=== PATIENT | female | born 1960 | race Hispanic/Latino ===

== ENCOUNTER 2018-05-05 09:13 | Inpatient (IN) | payer BC ==
[~2018-05-05] VITALS: Ht 152.4 cm; Wt 76.1 kg
[2018-05-05] VITALS (15 sets, daily range): BP systolic 112–132; BP diastolic 44–61
[2018-05-05] MEDS ORDERED: ONDANSETRON HCL 4 MG/2 ML VIAL ONE (10:11)
[2018-05-05] MEDS ORDERED: SODIUM CHLORIDE 0.9% 1000ML 1,000 ML IV ONE ×2 (10:11→11:33)
[2018-05-05 10:35] LABS: BASOPHILS % (AUTO) 0.9 % (0.0-5.0); HEMATOCRIT 39.5 % (36-48); LYMPHOCYTES % (AUTO) 5.1 % (21.0-51.0); MEAN CORPUSCULAR HEMOGLOBIN 28.2 pg (27.0-33.0); MEAN CORPUSCULAR HGB CONC 31.5 g/dL (32.0-36.0); MEAN CORPUSCULAR VOLUME 89.4 fL (79-99); MONOCYTES % (AUTO) 0.9 % (3.0-13.0); NEUTROPHILS % (AUTO) 93.1 % (40.0-77.0); PLATELET COUNT (AUTO) 436 K/uL (130-400); RED BLOOD CELL COUNT(AUTO) 4.42 MIL/uL (4.00-5.50); RED CELL DISTRIBUTION WIDTH 14.1 % (11.0-15.5); WHITE BLOOD COUNT (AUTO) 17.8 K/uL (4.8-10.8)
[2018-05-05 10:45] LABS: CREATININE 1.7 mg/dL (0.5-1.5); POTASSIUM 5.9 mmol/L (3.5-5.1)
[2018-05-05] MEDS ORDERED: INSULIN HUMULIN R 100 UNIT/ML 3ML ONE (10:59)
[2018-05-05 11:18] LABS: ABG BASE EXCESS -15.9 mmol/L (-2.0-3.0); ABG HCO3 10.6 mmol/L (21.0-28.0); ABG OXYGEN SATURATION 94.8 % (95.0-99.0); ABG PCO2 28 mmHg (32-45)
[2018-05-05 11:49] LABS: BILIRUBIN,DIRECT 0.1 mg/dL (0.0-0.3); BILIRUBIN,TOTAL 0.5 mg/dL (0.2-1.0); TOTAL PROTEIN, SERUM 7.9 g/dL (6.0-8.3)
[2018-05-05 12:12] LABS: APPEARANCE,URINE Clear (CLEAR); BILIRUBIN,URINE Negative (NEGATIVE); COLOR,URINE Yellow (YELLOW); GLUCOSE, URINE (UA) >=1000 mg/dL (NEGATIVE); KETONES,URINE 40 mg/dL (NEGATIVE); LEUKOCYTE ESTERASE ,URINE Negative (NEGATIVE); NITRATE,URINE Negative (NEGATIVE); OCCULT BLOOD,URINE Negative (NEGATIVE); PROTEIN,URINE POS 2+ (NEGATIVE); UROBILINOGEN,URINE 0.2 mg/dL (0.2-1.0)
[2018-05-05 12:23] LABS: BACTERIA,URINE Rare /HPF (None Seen); RBC,URINE None Seen /HPF (0-1); SQUAMOUS EPITHELIAL CELL,UR Rare /HPF (0-2); WBC,URINE 0-1 /HPF (0-1)
[2018-05-05 12:25] LABS: YEAST,URINE BUDDING Rare /HPF (None Seen)
[2018-05-05] MEDS ORDERED: INSULIN REGULAR, HUMAN 3ML 100 UNIT in SODIUM CHLORIDE 0.9% 99 ML IV PRN ×2 (12:30)
[2018-05-05] MEDS ORDERED: SODIUM CHLORIDE 0.9% 1000ML 1,000 ML IV SCH ×2 (12:33→12:45)
[2018-05-05] MEDS: SODIUM CHLORIDE 0.9% 1000ML 1,000 ML IV SCH ×3 (12:33→20:33)
[2018-05-05] MEDS ORDERED: ZOLPIDEM TARTRATE 5 MG TAB PO PRN (12:45)
[2018-05-05] MEDS ORDERED: MORPHINE SULFATE 4 MG/1ML SYG IV PRN (12:45)
[2018-05-05] MEDS ORDERED: MAG HYDROX/AL HYDROX/SIMETH ES 30 ML SUSP UDCUP PO PRN (12:45)
[2018-05-05] MEDS ORDERED: ACETAMINOPHEN 325 MG TAB PO PRN (12:45)
[2018-05-05] MEDS ORDERED: POTASSIUM CHLORIDE 10MEQ/100ML 100 ML IV PRN (12:45)
[2018-05-05] MEDS ORDERED: MORPHINE SULFATE 2 MG/ML 1ML SYG IV PRN (12:45)
[2018-05-05] MEDS ORDERED: ONDANSETRON HCL 4 MG/2 ML VIAL IV PRN (12:45)
[2018-05-05] MEDS ORDERED: INSULIN HUMULIN R 100 UNIT/ML 3ML IV ONE (14:00)
[2018-05-05 14:40] LABS: MAGNESIUM 2.2 mg/dL (1.80-2.40); PHOSPHORUS 4.9 mg/dL (2.5-4.9)
[2018-05-05 14:43] LABS: CREATININE 1.7 mg/dL (0.5-1.5); POTASSIUM 4.9 mmol/L (3.5-5.1)
[2018-05-05] MEDS ORDERED: DULO30CA51 PO (16:46)
[2018-05-05] MEDS ORDERED: GLIM4TAB3 PO (16:46)
[2018-05-05] MEDS ORDERED: RAMI10CA69 PO (16:46)
[2018-05-05] MEDS ORDERED: FOLI1TAB85 PO (16:46)
[2018-05-05] MEDS: DEXTROSE 5 %-0.45 % NACL 1,000 ML IV PRN (21:23)
[2018-05-06] VITALS (14 sets, daily range): BP systolic 103–152; BP diastolic 43–78
[2018-05-06] MEDS: DEXTROSE 5 %-0.45 % NACL 1,000 ML IV PRN (01:35)
[2018-05-06] MEDS: SODIUM CHLORIDE 0.9% 1000ML 1,000 ML IV SCH ×2 (03:33→06:42)
[2018-05-06 06:20] LABS: HEMATOCRIT 32.1 % (36-48); MEAN CORPUSCULAR HEMOGLOBIN 27.6 pg (27.0-33.0); MEAN CORPUSCULAR HGB CONC 32.8 g/dL (32.0-36.0); MEAN CORPUSCULAR VOLUME 84.3 fL (79-99); PLATELET COUNT (AUTO) 355 K/uL (130-400); RED BLOOD CELL COUNT(AUTO) 3.81 MIL/uL (4.00-5.50); RED CELL DISTRIBUTION WIDTH 13.2 % (11.0-15.5); WHITE BLOOD COUNT (AUTO) 16.9 K/uL (4.8-10.8)
[2018-05-06 06:28] LABS: CREATININE 1.3 mg/dL (0.5-1.5); MAGNESIUM 1.6 mg/dL (1.80-2.40); PHOSPHORUS 2.6 mg/dL (2.5-4.9)
[2018-05-06] MEDS: INSULIN LISPRO 100 UNIT/ML 3ML SQ SCH ×7 (07:30→22:35)
[2018-05-06] MEDS: PANTOPRAZOLE SODIUM 40 MG TABLET.DR PO SCH (08:21)
[2018-05-06] MEDS: ENOXAPARIN SODIUM 40 MG/0.4 ML SYRINGE SQ SCH (08:23)
[2018-05-06] MEDS: DULOXETINE HCL 30 MG CAP PO SCH (08:26)
[2018-05-06] MEDS: LISINOPRIL 40 MG TABLET PO SCH ×2 (08:27→08:28)
[2018-05-06] MEDS: VITAMIN B COMPLEX 1 CAPSULE PO SCH (08:34)
[2018-05-06] MEDS ORDERED: MAGNESIUM 2GM PREMIX 50ML 50 ML IV ONE (08:48)
[2018-05-06] MEDS ORDERED: PANTOPRAZOLE 40 MG/VIAL IVP SCH (09:00)
[2018-05-06] MEDS ORDERED: DEXTROSE 5 %-0.45 % NACL 1,000 ML IV ONE (09:13)
[2018-05-06] MEDS: ATORVASTATIN CALCIUM 20 MG TABLET PO SCH (22:32)
[2018-05-06] MEDS: INSULIN GLARGINE 100 UNITS/ML 10 ML VIAL SQ SCH (22:34)
[2018-05-07 04:00] VITALS: BP 148/75
[2018-05-07 04:27] LABS: HEMATOCRIT 33.8 % (36-48); MEAN CORPUSCULAR HEMOGLOBIN 28.7 pg (27.0-33.0); MEAN CORPUSCULAR HGB CONC 33.9 g/dL (32.0-36.0); MEAN CORPUSCULAR VOLUME 84.7 fL (79-99); PLATELET COUNT (AUTO) 377 K/uL (130-400); RED BLOOD CELL COUNT(AUTO) 3.99 MIL/uL (4.00-5.50); RED CELL DISTRIBUTION WIDTH 13.3 % (11.0-15.5); WHITE BLOOD COUNT (AUTO) 10.8 K/uL (4.8-10.8)
[2018-05-07 04:39] LABS: PHOSPHORUS 3.1 mg/dL (2.5-4.9)
[2018-05-07] MEDS: PANTOPRAZOLE SODIUM 40 MG TABLET.DR PO SCH (06:36)
[2018-05-07] MEDS: INSULIN LISPRO 100 UNIT/ML 3ML SQ SCH ×6 (06:40→21:00)
[2018-05-07 07:30] VITALS: BP 131/67
[2018-05-07] MEDS: VITAMIN B COMPLEX 1 CAPSULE PO SCH (10:40)
[2018-05-07] MEDS: DULOXETINE HCL 30 MG CAP PO SCH (10:40)
[2018-05-07] MEDS: LISINOPRIL 40 MG TABLET PO SCH (10:41)
[2018-05-07] MEDS: ENOXAPARIN SODIUM 40 MG/0.4 ML SYRINGE SQ SCH (10:42)
[2018-05-07 11:00] VITALS: BP 160/80
[2018-05-07] MEDS ORDERED: INSLAN SQ (11:20)
[2018-05-07] MEDS ORDERED: INSU100V SQ (11:20)
[2018-05-07] MEDS ORDERED: ATOR20TA65 PO (11:20)
[2018-05-07 16:00] VITALS: BP 167/80
[2018-05-07 20:00] VITALS: BP 132/68
[2018-05-07] MEDS: INSULIN GLARGINE 100 UNITS/ML 10 ML VIAL SQ SCH (21:10)
[2018-05-07] MEDS: ATORVASTATIN CALCIUM 20 MG TABLET PO SCH (21:12)
[2018-05-08 00:09] VITALS: BP 153/78
[2018-05-08 04:06] VITALS: BP 138/78
[2018-05-08] MEDS: PANTOPRAZOLE SODIUM 40 MG TABLET.DR PO SCH (07:02)
[2018-05-08] MEDS: INSULIN LISPRO 100 UNIT/ML 3ML SQ SCH ×6 (07:07→17:22)
[2018-05-08 07:30] VITALS: BP 151/66
[2018-05-08] MEDS: VITAMIN B COMPLEX 1 CAPSULE PO SCH (08:59)
[2018-05-08] MEDS: DULOXETINE HCL 30 MG CAP PO SCH (08:59)
[2018-05-08] MEDS: LISINOPRIL 40 MG TABLET PO SCH (08:59)
[2018-05-08] MEDS: ENOXAPARIN SODIUM 40 MG/0.4 ML SYRINGE SQ SCH (09:00)
[2018-05-08 11:00] VITALS: BP 143/75
[2018-05-08 16:00] VITALS: BP 139/75
== END 2018-05-08 19:00 | disposition home or self-care (01) | DRG 682 ==
LOC: EDH 09:13 → EDHIP 12:33 → 2CH 15:34 → 3AH 05-06 09:24
PROVIDERS: ADMIT Internal Medicine; ATTEND Internal Medicine
DX: N17.9 Acute kidney failure, unspecified (principal); E11.10 Type 2 diabetes mellitus with ketoacidosis without coma; E87.5 Hyperkalemia; E86.1 Hypovolemia; N18.9 Chronic kidney disease, unspecified; I12.9 Hypertensive chronic kidney disease with stage 1 through stage 4 chronic kidney disease, or unspecified chronic kidney disease; E11.22 Type 2 diabetes mellitus with diabetic chronic kidney disease; E66.9 Obesity, unspecified; E78.2 Mixed hyperlipidemia; G47.00 Insomnia, unspecified; K59.00 Constipation, unspecified; Z79.4 Long term (current) use of insulin; Z68.32 Body mass index [BMI] 32.0-32.9, adult
CPT/HCPCS: 36415; 36600; 80048; 80076; 81001; 82803; 82948; 83735; 84100; 85025; 85027; 99291; C9113; J1650; J1815; J2405; J3475; J7030; J7042

== ENCOUNTER 2018-05-25 17:30 | Emergency (ER) | payer BC ==
[~2018-05-25 17:30] MED LIST: ATOR20TA65 PO; DULO30CA51 PO; FOLI1TAB85 PO; GLIM4TAB3 PO; INSLAN SQ; INSU100V SQ; RAMI10CA69 PO
[2018-05-25 17:57] LABS: APPEARANCE,URINE Turbid (CLEAR); BILIRUBIN,URINE Negative (NEGATIVE); COLOR,URINE Yellow (YELLOW); GLUCOSE, URINE (UA) >=1000 mg/dL (NEGATIVE); KETONES,URINE Negative (NEGATIVE); LEUKOCYTE ESTERASE ,URINE Moderate (NEGATIVE); NITRATE,URINE Negative (NEGATIVE); OCCULT BLOOD,URINE Large (NEGATIVE); PROTEIN,URINE 300 (NEGATIVE); UROBILINOGEN,URINE 0.2 mg/dL (0.2-1.0)
[2018-05-25] MEDS ORDERED: IBUPROFEN 600 MG TABLET ONE (18:11)
[2018-05-25 18:13] LABS: BACTERIA,URINE Rare /HPF (None Seen); WBC,URINE >100 /HPF (0-1)
[2018-05-25 18:14] LABS: SQUAMOUS EPITHELIAL CELL,UR None Seen /HPF (0-2)
[2018-05-25 18:20] LABS: BASOPHILS % (AUTO) 0.9 % (0.0-5.0); HEMATOCRIT 38.9 % (36-48); LYMPHOCYTES % (AUTO) 19.4 % (21.0-51.0); MEAN CORPUSCULAR HEMOGLOBIN 28.5 pg (27.0-33.0); MEAN CORPUSCULAR HGB CONC 33.5 g/dL (32.0-36.0); MEAN CORPUSCULAR VOLUME 85.1 fL (79-99); MONOCYTES % (AUTO) 6.5 % (3.0-13.0); NEUTROPHILS % (AUTO) 72.2 % (40.0-77.0); PLATELET COUNT (AUTO) 403 K/uL (130-400); RED BLOOD CELL COUNT(AUTO) 4.58 MIL/uL (4.00-5.50); RED CELL DISTRIBUTION WIDTH 13.2 % (11.0-15.5); WHITE BLOOD COUNT (AUTO) 11.2 K/uL (4.8-10.8)
[2018-05-25 18:31] LABS: CREATININE 1.4 mg/dL (0.5-1.5); POTASSIUM 4.5 mmol/L (3.5-5.1)
[2018-05-25 18:35] LABS: BILIRUBIN,TOTAL 0.2 mg/dL (0.2-1.0)
[2018-05-25] MEDS ORDERED: LIDOCAINE HCL-MPF 1% 2ML VIAL ONE (18:47)
[2018-05-25] MEDS ORDERED: CEFTRIAXONE SODIUM 1 GM ONE (18:48)
== END 2018-05-25 20:06 | disposition home or self-care (01) ==
LOC: EDH 17:30
DX: N39.0 Urinary tract infection, site not specified (principal); E11.9 Type 2 diabetes mellitus without complications; E78.5 Hyperlipidemia, unspecified; I10 Essential (primary) hypertension; Z79.4 Long term (current) use of insulin
CPT/HCPCS: 36415; 80053; 81001; 82948; 83690; 85025; 87077; 87088; 87186; 96372; 99284; J0696; J3490

== ENCOUNTER → 2020-06-28 | Outpatient (CLI) | payer OTHER ==
[~2020-06-28] MED LIST changes: -DULO30CA51 PO; +DULO30CA52 PO; -GLIM4TAB3 PO; +GLIM4TAB36 PO
== END | disposition home or self-care (01) ==
LOC: RAH 12:47
PROVIDERS: ATTEND Internal Medicine Cardiovascular Disease
DX: Z13.6 Encounter for screening for cardiovascular disorders (principal)
CPT/HCPCS: 75571

== ENCOUNTER 2022-01-05 19:17 | Inpatient (IN) | payer BC, OTHER ==
[~2022-01-05] VITALS: Ht 165.1 cm; Wt 65.2 kg
[2022-01-05 19:57] LABS: BASOPHILS % (AUTO) 0.8 % (0.0-5.0); EOSINOPHILS % (AUTO) 1.5 % (0.0-8.0); HEMATOCRIT 34.8 % (36-48); LYMPHOCYTES % (AUTO) 21.2 % (21.0-51.0); MEAN CORPUSCULAR HGB CONC 32.5 g/dL (32.0-36.0); MEAN CORPUSCULAR VOLUME 89.5 fL (79-99); MONOCYTES % (AUTO) 12.2 % (3.0-13.0); PLATELET COUNT (AUTO) 180 K/uL (130-400); RED BLOOD CELL COUNT(AUTO) 3.89 MIL/uL (4.00-5.50); RED CELL DISTRIBUTION WIDTH 15.8 % (11.0-15.5); WHITE BLOOD COUNT (AUTO) 6.6 K/uL (4.8-10.8)
[2022-01-05 20:06] LABS: CREATININE 1.6 mg/dL (0.5-1.5); POTASSIUM 3.1 mmol/L (3.5-5.1)
[2022-01-05 20:15] LABS: TOTAL PROTEIN, SERUM 7.5 g/dL (6.0-8.3)
[2022-01-05] MEDS ORDERED: POTASSIUM CHLORIDE 10% ELIXIR 20 MEQ/15 ML UDCUP PO ONE (20:30)
[2022-01-05] MEDS ORDERED: DEXAMETHASONE SOD PHOSPHATE 4 MG/ML 1ML VIAL IVP ONE (20:30)
[2022-01-05] MEDS ORDERED: 0.9%NACL 1000ML 1,000 ML IV ONE (20:30)
[2022-01-05] MEDS ORDERED: HYDRALAZINE 20MG/ML VIAL IV PRN (21:00)
[2022-01-05] MEDS ORDERED: BENZONATATE 100 MG CAPSULE PO PRN (21:00)
[2022-01-05] MEDS ORDERED: ERGOCALCIFEROL (VITAMIN D2) 50,000 UNIT CAPSULE PO ONE (21:00)
[2022-01-05] MEDS ORDERED: ACETAMINOPHEN WITH CODEINE 1 TAB TAB PO PRN ×2 (21:00)
[2022-01-05] MEDS: FAMOTIDINE 20MG VIAL IV SCH (21:14)
[2022-01-05] MEDS: ACETYLCYSTEINE 600 MG CAPSULE PO SCH (21:14)
[2022-01-05 21:15] LABS: ABG BASE EXCESS 2.6 mmol/L (-2.0-3.0); ABG HCO3 25.9 mmol/L (21.0-28.0); ABG OXYGEN SATURATION 96.5 % (95.0-99.0); ABG PCO2 36 mmHg (32-45)
[2022-01-05] MEDS ORDERED: GLUCAGON 1MG KIT 1 MG ML IM PRN (21:30)
[2022-01-05] MEDS ORDERED: ALBUTEROL INHALER 90MCG/INH IH PRN (21:30)
[2022-01-05] MEDS ORDERED: DEXTROSE 50%-WATER 50 ML DISP.SYRIN IV PRN (21:30)
[2022-01-06 01:36] LABS: APPEARANCE,URINE CLOUDY (CLEAR); BILIRUBIN,URINE MODERATE (NEGATIVE); COLOR,URINE AMBER (YELLOW); GLUCOSE, URINE (UA) NEGATIVE (NEGATIVE); KETONES,URINE 5 mg/dL (NEGATIVE); LEUKOCYTE ESTERASE ,URINE MODERATE (NEGATIVE); NITRATE,URINE NEGATIVE (NEGATIVE); OCCULT BLOOD,URINE SMALL (NEGATIVE); PROTEIN,URINE 100 mg/dL (NEGATIVE); UROBILINOGEN,URINE 0.2 mg/dL (0.2-1.0)
[2022-01-06] MEDS: AZITHROMYCIN 250 MG TABLET PO SCH (01:37)
[2022-01-06] MEDS: CEFTRIAXONE 1G VIAL IVP SCH (01:37)
[2022-01-06 01:55] LABS: WBC,URINE 26-50 /HPF (0-1)
[2022-01-06 01:56] LABS: BACTERIA,URINE Many /HPF (None Seen); HYALINE CASTS, URINE 0-1 /LPF (0-1 /LPF); SQUAMOUS EPITHELIAL CELL,UR Few /HPF (0-2)
[2022-01-06] MEDS: ASCORBIC ACID 500 MG TAB PO SCH (08:32)
[2022-01-06] MEDS: ENOXAPARIN SODIUM 40 MG/0.4 ML SYRINGE SQ SCH (08:32)
[2022-01-06] MEDS: DEXAMETHASONE SOD PHOSPHATE 4 MG/ML 1ML VIAL IVP SCH (08:32)
[2022-01-06] MEDS: ACETYLCYSTEINE 600 MG CAPSULE PO SCH ×2 (08:32→21:30)
[2022-01-06] MEDS: INSULIN HUMULIN R 100 UNIT/ML 3ML SQ SCH ×4 (08:32→20:58)
[2022-01-06] MEDS: ZINC SULFATE 220 CAPSULE PO SCH (08:32)
[2022-01-06 08:46] LABS: BASOPHILS % (AUTO) 0.8 % (0.0-5.0); HEMATOCRIT 36.6 % (36-48); LYMPHOCYTES % (AUTO) 22.5 % (21.0-51.0); MEAN CORPUSCULAR HEMOGLOBIN 29.4 pg (27.0-33.0); MONOCYTES % (AUTO) 4.1 % (3.0-13.0); NEUTROPHILS % (AUTO) 72.3 % (40.0-77.0); PLATELET COUNT (AUTO) 177 K/uL (130-400); RED BLOOD CELL COUNT(AUTO) 3.98 MIL/uL (4.00-5.50); RED CELL DISTRIBUTION WIDTH 15.8 % (11.0-15.5); WHITE BLOOD COUNT (AUTO) 3.7 K/uL (4.8-10.8)
[2022-01-06 08:55] LABS: INR 1.05 (0.85-1.15); PROTHROMBIN TIME 11.4 SEC (9.6-11.6)
[2022-01-06 08:57] LABS: PARTIAL THROMBOPLASTIN TIME 31.2 SEC (26.3-35.5)
[2022-01-06 09:22] LABS: BILIRUBIN,TOTAL 0.9 mg/dL (0.2-1.0); CREATININE 2.4 mg/dL (0.5-1.5); POTASSIUM 5.2 mmol/L (3.5-5.1); TOTAL PROTEIN, SERUM 7.6 g/dL (6.0-8.3)
[2022-01-06] MEDS ORDERED: NA ZIRCON CYCLOSIL(LOKELMA 10GM) PO SCH (09:30)
[2022-01-06 10:30] LABS: MAGNESIUM 2.1 mg/dL (1.80-2.40); PHOSPHORUS 5.8 mg/dL (2.5-4.9)
[2022-01-06 12:10] LABS: HEMOGLOBIN A1C 7.8 % (4.0-6.0)
[2022-01-06] MEDS: PHARMACY COMMUNICATION MISC SCH ×2 (12:30→20:30)
[2022-01-06] MEDS ORDERED: INSULIN GLARGINE 100 UNITS/ML 10 ML VIAL SQ ONE (13:30)
[2022-01-06] MEDS ORDERED: FURO40TA5 PO (17:31)
[2022-01-06] MEDS ORDERED: HYDR-4154 PO (17:31)
[2022-01-06] MEDS ORDERED: AMLO-258 PO (17:31)
[2022-01-06] MEDS ORDERED: CARV3.12 PO (17:31)
[2022-01-06] MEDS ORDERED: DICY20TA3 PO (17:31)
[2022-01-06] MEDS ORDERED: ESOM40CA54 PO (17:31)
[2022-01-06] MEDS ORDERED: ROPI0.5T7 PO (17:31)
[2022-01-06] MEDS ORDERED: ATOR40TA71 PO (17:31)
[2022-01-06] MEDS ORDERED: CHOL200059 PO (17:31)
[2022-01-06] MEDS ORDERED: HYDRALAZINE 25MG TABLET PO PRN (20:00)
[2022-01-06] MEDS: DICYCLOMINE HCL 20 MG TAB PO SCH (21:27)
[2022-01-06] MEDS: FAMOTIDINE 20MG VIAL IV SCH (21:27)
[2022-01-06] MEDS: ROPINIROLE HCL 0.25 MG TABLET PO SCH (21:28)
[2022-01-06] MEDS: CARVEDILOL 3.125 MG TABLET PO SCH (21:28)
[2022-01-06] MEDS: INSULIN GLARGINE 100 UNITS/ML 10 ML VIAL SQ SCH (21:28)
[2022-01-06] MEDS: ATORVASTATIN 40 MG TABLET PO SCH (21:28)
[2022-01-07] MEDS: AZITHROMYCIN 250 MG TABLET PO SCH (00:46)
[2022-01-07] MEDS: CEFTRIAXONE 1G VIAL IVP SCH (00:46)
[2022-01-07] MEDS ORDERED: PHARMACY COMMUNICATION MISC SCH (01:00)
[2022-01-07] MEDS ORDERED: RENAL DOSE IV PRN (01:00)
[2022-01-07] MEDS: PHARMACY COMMUNICATION MISC SCH ×3 (04:18→22:16)
[2022-01-07] MEDS: DULOXETINE HCL 30 MG CAP PO SCH (08:13)
[2022-01-07] MEDS: INSULIN HUMULIN R 100 UNIT/ML 3ML SQ SCH ×4 (08:17→21:57)
[2022-01-07] MEDS: (Cholecalciferol (Vitamin D3) (Vitamin D3) 50 MCG) PO SCH (08:17)
[2022-01-07] MEDS: DEXAMETHASONE SOD PHOSPHATE 4 MG/ML 1ML VIAL IVP SCH (08:19)
[2022-01-07] MEDS: DICYCLOMINE HCL 20 MG TAB PO SCH ×2 (08:19→21:48)
[2022-01-07] MEDS: ACETYLCYSTEINE 600 MG CAPSULE PO SCH ×2 (08:20→21:51)
[2022-01-07] MEDS: Vitamin B Complex/Vit C/Folic Acid PO SCH (08:20)
[2022-01-07] MEDS: CARVEDILOL 3.125 MG TABLET PO SCH ×2 (08:20→21:49)
[2022-01-07] MEDS: AMLODIPINE 5 MG TAB PO SCH (08:21)
[2022-01-07] MEDS: ENOXAPARIN SODIUM 40 MG/0.4 ML SYRINGE SQ SCH (08:22)
[2022-01-07] MEDS: ZINC SULFATE 220 CAPSULE PO SCH (08:22)
[2022-01-07] MEDS: INSULIN GLARGINE 100 UNITS/ML 10 ML VIAL SQ SCH ×3 (08:22→21:57)
[2022-01-07] MEDS: ASCORBIC ACID 500 MG TAB PO SCH (08:22)
[2022-01-07] MEDS: HEPARIN 5,000 UNIT VIAL SQ SCH ×3 (08:30→10:44)
[2022-01-07 08:33] LABS: BASOPHILS % (AUTO) 0.1 % (0.0-5.0); HEMATOCRIT 35.1 % (36-48); LYMPHOCYTES % (AUTO) 17.3 % (21.0-51.0); MEAN CORPUSCULAR HGB CONC 32.2 g/dL (32.0-36.0); MEAN CORPUSCULAR VOLUME 90.2 fL (79-99); MONOCYTES % (AUTO) 8.6 % (3.0-13.0); NEUTROPHILS % (AUTO) 73.7 % (40.0-77.0); PLATELET COUNT (AUTO) 190 K/uL (130-400); RED BLOOD CELL COUNT(AUTO) 3.89 MIL/uL (4.00-5.50); RED CELL DISTRIBUTION WIDTH 15.8 % (11.0-15.5); WHITE BLOOD COUNT (AUTO) 9.2 K/uL (4.8-10.8)
[2022-01-07 08:53] LABS: ALBUMIN 2.8 g/dL (3.5-5.0); BILIRUBIN,TOTAL 0.7 mg/dL (0.2-1.0); CREATININE 3.4 mg/dL (0.5-1.5); CRP QUANTITATIVE 13.5 mg/L (0.00-9.0); TOTAL PROTEIN, SERUM 7.2 g/dL (6.0-8.3)
[2022-01-07] MEDS ORDERED: PANTOPRAZOLE 40 MG TAB DR PO SCH (09:00)
[2022-01-07] MEDS ORDERED: BARICITINIB (EUA) 2 MG TABLET PO SCH (13:00)
[2022-01-07] MEDS ORDERED: INSULIN HUMULIN R 100 UNIT/ML 3ML SQ SCH (17:00)
[2022-01-07] MEDS: ROPINIROLE HCL 0.25 MG TABLET PO SCH (21:00)
[2022-01-07] MEDS: FAMOTIDINE 20MG VIAL IV SCH (21:48)
[2022-01-07] MEDS: ATORVASTATIN 40 MG TABLET PO SCH (21:49)
[2022-01-08] VITALS (27 sets, daily range): BP systolic 129–151; BP diastolic 59–100
[2022-01-08] MEDS: CEFTRIAXONE 1G VIAL IVP SCH
[2022-01-08] MEDS: AZITHROMYCIN 250 MG TABLET PO SCH
[2022-01-08] MEDS ORDERED: ERGOCALCIFEROL (VITAMIN D2) 50,000 UNIT CAPSULE ONE (00:23)
[2022-01-08] MEDS: PHARMACY COMMUNICATION MISC SCH ×3 (04:30→20:30)
[2022-01-08] MEDS: PANTOPRAZOLE 40 MG TAB DR PO SCH ×2 (07:30→08:24)
[2022-01-08] MEDS: INSULIN HUMULIN R 100 UNIT/ML 3ML SQ SCH ×7 (07:30→20:32)
[2022-01-08] MEDS: (Cholecalciferol (Vitamin D3) (Vitamin D3) 50 MCG) PO SCH (08:08)
[2022-01-08] MEDS: ZINC SULFATE 220 CAPSULE PO SCH (08:20)
[2022-01-08] MEDS: AMLODIPINE 5 MG TAB PO SCH (08:21)
[2022-01-08] MEDS: DICYCLOMINE HCL 20 MG TAB PO SCH ×2 (08:21→20:30)
[2022-01-08] MEDS: Vitamin B Complex/Vit C/Folic Acid PO SCH (08:21)
[2022-01-08] MEDS: ASCORBIC ACID 500 MG TAB PO SCH (08:21)
[2022-01-08] MEDS: DULOXETINE HCL 30 MG CAP PO SCH (08:21)
[2022-01-08] MEDS: DEXAMETHASONE SOD PHOSPHATE 4 MG/ML 1ML VIAL IVP SCH (08:21)
[2022-01-08] MEDS: ACETYLCYSTEINE 600 MG CAPSULE PO SCH ×2 (08:21→20:30)
[2022-01-08] MEDS: CARVEDILOL 3.125 MG TABLET PO SCH ×2 (08:22→20:31)
[2022-01-08 08:23] LABS: ALBUMIN 2.9 g/dL (3.5-5.0); BILIRUBIN,TOTAL 0.6 mg/dL (0.2-1.0); TOTAL PROTEIN, SERUM 7.3 g/dL (6.0-8.3)
[2022-01-08] MEDS: INSULIN GLARGINE 100 UNITS/ML 10 ML VIAL SQ SCH ×2 (08:23→20:32)
[2022-01-08 08:33] LABS: BASOPHILS % (AUTO) 0.1 % (0.0-5.0); HEMATOCRIT 34.6 % (36-48); LYMPHOCYTES % (AUTO) 19.1 % (21.0-51.0); MEAN CORPUSCULAR HEMOGLOBIN 28.8 pg (27.0-33.0); MEAN CORPUSCULAR HGB CONC 32.4 g/dL (32.0-36.0); MEAN CORPUSCULAR VOLUME 88.9 fL (79-99); MONOCYTES % (AUTO) 7.4 % (3.0-13.0); NEUTROPHILS % (AUTO) 72.9 % (40.0-77.0); PLATELET COUNT (AUTO) 211 K/uL (130-400); RED BLOOD CELL COUNT(AUTO) 3.89 MIL/uL (4.00-5.50); RED CELL DISTRIBUTION WIDTH 15.8 % (11.0-15.5); WHITE BLOOD COUNT (AUTO) 8.6 K/uL (4.8-10.8)
[2022-01-08 09:23] LABS: INR 1.07 (0.85-1.15); PROTHROMBIN TIME 11.6 SEC (9.6-11.6)
[2022-01-08 09:25] LABS: PARTIAL THROMBOPLASTIN TIME 30.6 SEC (26.3-35.5)
[2022-01-08 19:44] LABS: APPEARANCE BODY FLUID CLEAR (CLEAR); COLOR,BODY FLUID YELLOW (LT YELLOW); SPECIMENTYPE,BODY FLUID PLEURAL; TOTAL VOLUME,BODY FLUID 1500 mL
[2022-01-08 19:45] LABS: BODY FLUID RBC 268 /cu. mm.; BODY FLUID WBC 4 /cu. mm.
[2022-01-08] MEDS: ATORVASTATIN 40 MG TABLET PO SCH (20:30)
[2022-01-08] MEDS: ROPINIROLE HCL 0.25 MG TABLET PO SCH (20:30)
[2022-01-08] MEDS: FAMOTIDINE 20MG VIAL IV SCH (20:31)
[2022-01-08 21:02] LABS: HEPATITIS B SURFACE ANTIGEN Non-Reactive (Negative)
[2022-01-09] MEDS: AZITHROMYCIN 250 MG TABLET PO SCH (00:16)
[2022-01-09] MEDS: CEFTRIAXONE 1G VIAL IVP SCH (00:16)
[2022-01-09 04:00] VITALS: BP 134/52
[2022-01-09] MEDS: PHARMACY COMMUNICATION MISC SCH ×3 (04:30→20:30)
[2022-01-09 05:12] LABS: BASOPHILS % (AUTO) 0.1 % (0.0-5.0); HEMATOCRIT 33.3 % (36-48); LYMPHOCYTES % (AUTO) 14.8 % (21.0-51.0); MEAN CORPUSCULAR HEMOGLOBIN 29.3 pg (27.0-33.0); MEAN CORPUSCULAR VOLUME 88.8 fL (79-99); MONOCYTES % (AUTO) 8.5 % (3.0-13.0); NEUTROPHILS % (AUTO) 76.2 % (40.0-77.0); PLATELET COUNT (AUTO) 170 K/uL (130-400); RED BLOOD CELL COUNT(AUTO) 3.75 MIL/uL (4.00-5.50); RED CELL DISTRIBUTION WIDTH 15.6 % (11.0-15.5); WHITE BLOOD COUNT (AUTO) 9.5 K/uL (4.8-10.8)
[2022-01-09] MEDS: INSULIN HUMULIN R 100 UNIT/ML 3ML SQ SCH ×7 (05:16→20:34)
[2022-01-09 05:27] LABS: CARBON DIOXIDE 26 mmol/L (21-32); CHLORIDE 97 mmol/L (101-111); CREATININE 3.3 mg/dL (0.5-1.5); GLOMERULAR FILTR. RATE CALC 15 mL/min (>60); GLUCOSE,RANDOM 152 mg/dL (70-105); POTASSIUM 3.6 mmol/L (3.5-5.1); SODIUM SERUM 135 mmol/L (136-145); UREA NITROGEN, BLOOD 32 mg/dL (7-18)
[2022-01-09 05:31] LABS: CRP QUANTITATIVE < 2.00 mg/L (0.00-9.0)
[2022-01-09] MEDS: PANTOPRAZOLE 40 MG TAB DR PO SCH ×2 (06:10→09:14)
[2022-01-09 08:00] VITALS: BP 141/68
[2022-01-09] MEDS: (Cholecalciferol (Vitamin D3) (Vitamin D3) 50 MCG) PO SCH (09:00)
[2022-01-09] MEDS: ACETYLCYSTEINE 600 MG CAPSULE PO SCH ×2 (09:13→20:29)
[2022-01-09] MEDS: DULOXETINE HCL 30 MG CAP PO SCH (09:13)
[2022-01-09] MEDS: AMLODIPINE 5 MG TAB PO SCH (09:13)
[2022-01-09] MEDS: DICYCLOMINE HCL 20 MG TAB PO SCH ×2 (09:14→20:29)
[2022-01-09] MEDS: ZINC SULFATE 220 CAPSULE PO SCH (09:14)
[2022-01-09] MEDS: Vitamin B Complex/Vit C/Folic Acid PO SCH (09:14)
[2022-01-09] MEDS: CARVEDILOL 3.125 MG TABLET PO SCH ×2 (09:14→20:34)
[2022-01-09] MEDS: ASCORBIC ACID 500 MG TAB PO SCH (09:14)
[2022-01-09] MEDS: DEXAMETHASONE SOD PHOSPHATE 4 MG/ML 1ML VIAL IVP SCH (09:15)
[2022-01-09] MEDS: INSULIN GLARGINE 100 UNITS/ML 10 ML VIAL SQ SCH ×2 (09:16→20:28)
[2022-01-09 12:00] VITALS: BP 133/63
[2022-01-09 16:00] VITALS: BP 133/71
[2022-01-09 20:03] VITALS: BP 148/69
[2022-01-09] MEDS: ATORVASTATIN 40 MG TABLET PO SCH (20:29)
[2022-01-09] MEDS: FAMOTIDINE 20MG VIAL IV SCH (20:29)
[2022-01-09] MEDS: ROPINIROLE HCL 0.25 MG TABLET PO SCH (20:29)
[2022-01-09] MEDS: HEPARIN 5,000 UNIT VIAL SQ SCH (20:30)
[2022-01-09 23:53] VITALS: BP 140/65
[2022-01-10] VITALS (19 sets, daily range): BP systolic 123–174; BP diastolic 63–81
[2022-01-10] MEDS: CEFTRIAXONE 1G VIAL IVP SCH ×2 (00:26→23:03)
[2022-01-10 03:34] LABS: HEMATOCRIT 32.8 % (36-48); MEAN CORPUSCULAR HEMOGLOBIN 29.2 pg (27.0-33.0); MEAN CORPUSCULAR HGB CONC 32.9 g/dL (32.0-36.0); MEAN CORPUSCULAR VOLUME 88.6 fL (79-99); RED BLOOD CELL COUNT(AUTO) 3.7 MIL/uL (4.00-5.50); RED CELL DISTRIBUTION WIDTH 15.3 % (11.0-15.5); WHITE BLOOD COUNT (AUTO) 7.3 K/uL (4.8-10.8)
[2022-01-10 03:50] LABS: ALBUMIN 2.5 g/dL (3.5-5.0); BILIRUBIN,TOTAL 0.5 mg/dL (0.2-1.0); CREATININE 4.2 mg/dL (0.5-1.5); MAGNESIUM 2.3 mg/dL (1.80-2.40); PHOSPHORUS 4.7 mg/dL (2.5-4.9); POTASSIUM 4.1 mmol/L (3.5-5.1); TOTAL PROTEIN, SERUM 6.5 g/dL (6.0-8.3)
[2022-01-10] MEDS: PHARMACY COMMUNICATION MISC SCH ×4 (04:30→23:03)
[2022-01-10] MEDS: INSULIN HUMULIN R 100 UNIT/ML 3ML SQ SCH ×7 (06:19→21:00)
[2022-01-10] MEDS: DULOXETINE HCL 30 MG CAP PO SCH (08:55)
[2022-01-10] MEDS: DICYCLOMINE HCL 20 MG TAB PO SCH ×2 (08:55→20:50)
[2022-01-10] MEDS: ACETYLCYSTEINE 600 MG CAPSULE PO SCH ×2 (08:55→20:50)
[2022-01-10] MEDS: DEXAMETHASONE SOD PHOSPHATE 4 MG/ML 1ML VIAL IVP SCH (08:55)
[2022-01-10] MEDS: Vitamin B Complex/Vit C/Folic Acid PO SCH (08:55)
[2022-01-10] MEDS: ZINC SULFATE 220 CAPSULE PO SCH (08:55)
[2022-01-10] MEDS: AMLODIPINE 5 MG TAB PO SCH (08:55)
[2022-01-10] MEDS: ASCORBIC ACID 500 MG TAB PO SCH (08:56)
[2022-01-10] MEDS: CARVEDILOL 3.125 MG TABLET PO SCH ×2 (08:56→20:49)
[2022-01-10] MEDS: HEPARIN 5,000 UNIT VIAL SQ SCH ×2 (08:57→21:01)
[2022-01-10] MEDS: INSULIN GLARGINE 100 UNITS/ML 10 ML VIAL SQ SCH ×2 (08:59→21:00)
[2022-01-10] MEDS: (Cholecalciferol (Vitamin D3) (Vitamin D3) 50 MCG) PO SCH (09:00)
[2022-01-10] MEDS ORDERED: ALBUHFA IH (12:28)
[2022-01-10] MEDS ORDERED: ASCO500T20 PO (12:28)
[2022-01-10] MEDS ORDERED: BENZ-70 PO (12:28)
[2022-01-10] MEDS ORDERED: ZINC220C6 PO (12:35)
[2022-01-10] MEDS ORDERED: AEC81 PO (12:35)
[2022-01-10] MEDS ORDERED: DEXA6TAB7 PO (12:35)
[2022-01-10] MEDS ORDERED: CEFD300C3 PO (12:35)
[2022-01-10] MEDS: ATORVASTATIN 40 MG TABLET PO SCH (20:49)
[2022-01-10] MEDS: FAMOTIDINE 20MG VIAL IV SCH (20:50)
[2022-01-10] MEDS: ROPINIROLE HCL 0.25 MG TABLET PO SCH (20:50)
[2022-01-11 00:25] VITALS: BP 130/51
[2022-01-11 04:10] LABS: MEAN CORPUSCULAR HEMOGLOBIN 28.9 pg (27.0-33.0); MEAN CORPUSCULAR VOLUME 87.5 fL (79-99); RED BLOOD CELL COUNT(AUTO) 3.77 MIL/uL (4.00-5.50); RED CELL DISTRIBUTION WIDTH 14.9 % (11.0-15.5); WHITE BLOOD COUNT (AUTO) 8.9 K/uL (4.8-10.8)
[2022-01-11 04:23] VITALS: BP 129/53
[2022-01-11 04:32] LABS: CREATININE 3.4 mg/dL (0.5-1.5); POTASSIUM 3.2 mmol/L (3.5-5.1)
[2022-01-11] MEDS: PANTOPRAZOLE 40 MG TAB DR PO SCH (06:19)
[2022-01-11] MEDS: INSULIN HUMULIN R 100 UNIT/ML 3ML SQ SCH ×4 (06:29→11:28)
[2022-01-11 08:43] VITALS: BP 134/59
[2022-01-11 09:00] VITALS: BP 134/59
[2022-01-11] MEDS: AMLODIPINE 5 MG TAB PO SCH (09:00)
[2022-01-11] MEDS: ACETYLCYSTEINE 600 MG CAPSULE PO SCH (09:00)
[2022-01-11] MEDS: ZINC SULFATE 220 CAPSULE PO SCH (09:00)
[2022-01-11] MEDS: HEPARIN 5,000 UNIT VIAL SQ SCH (09:00)
[2022-01-11] MEDS: ASCORBIC ACID 500 MG TAB PO SCH (09:00)
[2022-01-11] MEDS: (Cholecalciferol (Vitamin D3) (Vitamin D3) 50 MCG) PO SCH (09:00)
[2022-01-11] MEDS: DEXAMETHASONE SOD PHOSPHATE 4 MG/ML 1ML VIAL IVP SCH (09:00)
[2022-01-11] MEDS: DULOXETINE HCL 30 MG CAP PO SCH (09:00)
[2022-01-11] MEDS: INSULIN GLARGINE 100 UNITS/ML 10 ML VIAL SQ SCH (09:00)
[2022-01-11] MEDS: CARVEDILOL 3.125 MG TABLET PO SCH (09:00)
[2022-01-11] MEDS: Vitamin B Complex/Vit C/Folic Acid PO SCH (09:00)
[2022-01-11] MEDS: DICYCLOMINE HCL 20 MG TAB PO SCH (09:00)
== END 2022-01-11 12:27 | disposition home or self-care (01) | DRG 177 ==
LOC: EDH 19:17 → OBSVTOIN 20:58 → INTOOBSV 20:58 → EDHIP 20:58 → 2AH 01-08 07:44
PROVIDERS: ADMIT Internal Medicine; ATTEND Internal Medicine
PROC: XW0DXM6 Introduction of Baricitinib into Mouth and Pharynx, External Approach, New Technology Group 6 (ICD-10-PCS; principal; 2022-01-07)
PROC: 0W993ZZ Drainage of Right Pleural Cavity, Percutaneous Approach (ICD-10-PCS; 2022-01-08)
PROC: 5A1D70Z Performance of Urinary Filtration, Intermittent, Less than 6 Hours Per Day (ICD-10-PCS; 2022-01-08)
PROC: 5A1D70Z Performance of Urinary Filtration, Intermittent, Less than 6 Hours Per Day (ICD-10-PCS; 2022-01-10)
DX: U07.1 COVID-19 (principal); J12.82 Pneumonia due to coronavirus disease 2019; J96.01 Acute respiratory failure with hypoxia; N18.6 End stage renal disease; N17.9 Acute kidney failure, unspecified; I12.0 Hypertensive chronic kidney disease with stage 5 chronic kidney disease or end stage renal disease; D68.59 Other primary thrombophilia; N39.0 Urinary tract infection, site not specified; J91.8 Pleural effusion in other conditions classified elsewhere; E11.65 Type 2 diabetes mellitus with hyperglycemia; E11.21 Type 2 diabetes mellitus with diabetic nephropathy; D64.9 Anemia, unspecified; E78.5 Hyperlipidemia, unspecified; E11.22 Type 2 diabetes mellitus with diabetic chronic kidney disease; E78.00 Pure hypercholesterolemia, unspecified; Z99.2 Dependence on renal dialysis; E87.6 Hypokalemia; Z83.3 Family history of diabetes mellitus; Z82.49 Family history of ischemic heart disease and other diseases of the circulatory system; Z90.49 Acquired absence of other specified parts of digestive tract; B96.20 Unspecified Escherichia coli [E. coli] as the cause of diseases classified elsewhere
CPT/HCPCS: 32555; 36415; 36600; 71045; 71250; 80048; 80053; 81001; 82306; 82550; 82728; 82803; 82945; 82948; 83036; 83615; 83735; 83986; 84100; 84145; 84157; 84484; 85025; 85027; 85378; 85610; 85651; 85730; 86140; 86706; 86850; 86900; 86901; 87071; 87077; 87088; 87116; 87186; 87205; 87206; 87340; 87449; 87635; 87804; 89051; 90935; 93005; 93306; 93356; 93970; 94760; C1729; G0378; J0696; J1100; J1644; J1650; J1815; J3490; J7030

== ENCOUNTER → 2022-03-13 | Outpatient (CLI) | payer BC ==
[~2022-03-13] MED LIST changes: +AEC81 PO; +ALBUHFA IH; +AMLO-258 PO; +ASCO500T20 PO; -ATOR20TA65 PO; +ATOR40TA71 PO; +BENZ-70 PO; +CARV3.12 PO; +CEFD300C3 PO; +CHOL200059 PO; +DEXA6TAB7 PO; +DICY20TA3 PO; +ESOM40CA54 PO; +FURO40TA5 PO; +HYDR-4154 PO; +LIDOCAINE HCL 1% 20 ML VIAL ONE; +ROPI0.5T7 PO; +ZINC220C6 PO
[2022-03-13 09:03] LABS: INR 1.12 (0.85-1.15); PROTHROMBIN TIME 12.1 SEC (9.6-11.6)
[2022-03-13 09:04] LABS: PARTIAL THROMBOPLASTIN TIME 28.1 SEC (26.3-35.5)
[2022-03-13 09:10] LABS: TOTAL PROTEIN, SERUM 7.7 g/dL (6.0-8.3)
[2022-03-13 18:42] LABS: SPECIMENTYPE,BODY FLUID PLEURAL
[2022-03-13 18:43] LABS: APPEARANCE BODY FLUID CLEAR (CLEAR); BODY FLUID WBC 84 /cu. mm.; COLOR,BODY FLUID YELLOW (LT YELLOW); TOTAL VOLUME,BODY FLUID 1500 mL
[2022-03-13 18:44] LABS: BODY FLUID RBC 143 /cu. mm.
[2022-03-13 19:58] LABS: BF EOSINOPHIL 1 %; BF LYMPHOCYTE 7 %; BF MONOCYTE 1 %; BF OTHER CELLS 4
== END | disposition home or self-care (01) ==
LOC: RAH 08:00
PROVIDERS: ATTEND Internal Medicine
DX: J90 Pleural effusion, not elsewhere classified (principal); N18.6 End stage renal disease; Z79.01 Long term (current) use of anticoagulants
CPT/HCPCS: 32555; 71045; 82945; 83615 ×2; 84157; 84155; 83986; 89051; 85610; 85730; 87071; 87205; 36415; C1729

== ENCOUNTER 2022-05-01 23:42 | Emergency (ER) | payer BC ==
[~2022-05-01] VITALS: Ht 152.4 cm; Wt 66.7 kg
[~2022-05-01 23:42] MED LIST changes: -LIDOCAINE HCL 1% 20 ML VIAL ONE
[2022-05-02 00:24] LABS: CREATININE 4.5 mg/dL (0.5-1.5)
[2022-05-02 00:29] LABS: ALBUMIN 3.4 g/dL (3.5-5.0); TOTAL PROTEIN, SERUM 7.7 g/dL (6.0-8.3)
[2022-05-02 00:33] LABS: EOSINOPHILS % (AUTO) 0.9 % (0.0-8.0); HEMATOCRIT 34.4 % (36-48); LYMPHOCYTES % (AUTO) 9.9 % (21.0-51.0); MEAN CORPUSCULAR HEMOGLOBIN 30.2 pg (27.0-33.0); MEAN CORPUSCULAR HGB CONC 32.3 g/dL (32.0-36.0); MEAN CORPUSCULAR VOLUME 93.7 fL (79-99); MONOCYTES % (AUTO) 10.2 % (3.0-13.0); NEUTROPHILS % (AUTO) 77.6 % (40.0-77.0); PLATELET COUNT (AUTO) 212 K/uL (130-400); RED BLOOD CELL COUNT(AUTO) 3.67 MIL/uL (4.00-5.50); RED CELL DISTRIBUTION WIDTH 16.4 % (11.0-15.5); WHITE BLOOD COUNT (AUTO) 11.2 K/uL (4.8-10.8)
[2022-05-02] MEDS ORDERED: LIDOCAINE HCL 2% VISCOUS 15 ML UDCUP ONE (01:34)
[2022-05-02] MEDS ORDERED: DICYCLOMINE HCL 10 MG/5 ML ML PO ONE (01:34)
[2022-05-02] MEDS ORDERED: MAG/ALUM/SIMETH 30 ML UDCUP ONE (01:34)
[2022-05-02] MEDS ORDERED: DICYCLOMINE HCL 10 MG/5 ML ML PO SCH (02:00)
[2022-05-02] MEDS ORDERED: LIDOCAINE HCL 2% VISCOUS 15 ML UDCUP PO ONE (02:00)
[2022-05-02] MEDS ORDERED: MAG/ALUM/SIMETH 30 ML UDCUP PO ONE (02:00)
[2022-05-02] MEDS ORDERED: MORPHINE 2 MG SYG ONE (05:03)
[2022-05-02 05:18] VITALS: BP 136/64
[2022-05-02] MEDS ORDERED: MORPHINE 2 MG SYG IVP ONE (05:30)
== END 2022-05-02 05:39 | disposition home or self-care (01) ==
LOC: EDH 23:42
DX: I13.2 Hypertensive heart and chronic kidney disease with heart failure and with stage 5 chronic kidney disease, or end stage renal disease (principal); E11.22 Type 2 diabetes mellitus with diabetic chronic kidney disease; I50.9 Heart failure, unspecified; E78.00 Pure hypercholesterolemia, unspecified; R50.9 Fever, unspecified; Z20.822 Contact with and (suspected) exposure to COVID-19; Z79.4 Long term (current) use of insulin; Z79.52 Long term (current) use of systemic steroids; Z79.82 Long term (current) use of aspirin; Z90.49 Acquired absence of other specified parts of digestive tract; Z99.2 Dependence on renal dialysis
CPT/HCPCS: 99284; 71045; 87635; 84484; 80053; 85025; 87804 ×2; 36415; 93005; 96374; C9803

== ENCOUNTER → 2022-10-23 | Outpatient (CLI) | payer OTHER | END | disposition home or self-care (01) | LOC: RAH 12:25 | PROVIDERS: ATTEND Internal Medicine Cardiovascular Disease | DX: Z13.6 Encounter for screening for cardiovascular disorders (principal); R93.1 Abnormal findings on diagnostic imaging of heart and coronary circulation; J90 Pleural effusion, not elsewhere classified; R91.8 Other nonspecific abnormal finding of lung field; R18.8 Other ascites | CPT/HCPCS: 75571 ==

== ENCOUNTER 2022-11-06 07:21 | Observation (INO) | payer BC, OTHER ==
[~2022-11-06] VITALS: Ht 152.4 cm; Wt 59.3 kg
[2022-11-06 07:52] LABS: BASOPHILS % (AUTO) 0.4 % (0.0-5.0); EOSINOPHILS % (AUTO) 1.8 % (0.0-8.0); HEMATOCRIT 41.1 % (36-48); MEAN CORPUSCULAR HEMOGLOBIN 30.4 pg (27.0-33.0); MEAN CORPUSCULAR HGB CONC 31.4 g/dL (32.0-36.0); MEAN CORPUSCULAR VOLUME 96.7 fL (79-99); MONOCYTES % (AUTO) 6.7 % (3.0-13.0); NEUTROPHILS % (AUTO) 85.6 % (40.0-77.0); PLATELET COUNT (AUTO) 148 K/uL (130-400); RED BLOOD CELL COUNT(AUTO) 4.25 MIL/uL (4.00-5.50); RED CELL DISTRIBUTION WIDTH 16.1 % (11.0-15.5); WHITE BLOOD COUNT (AUTO) 10.2 K/uL (4.8-10.8)
[2022-11-06] MEDS ORDERED: 0.9%NACL 1000ML 1,000 ML IV ONE (08:00)
[2022-11-06] MEDS ORDERED: ONDANSETRON 4MG INJ IVP ONE (08:00)
[2022-11-06 09:52] LABS: ALBUMIN 3.2 g/dL (3.5-5.0); CREATININE 4.8 mg/dL (0.5-1.5); POTASSIUM 4.9 mmol/L (3.5-5.1); TOTAL PROTEIN, SERUM 8.1 g/dL (6.0-8.3)
[2022-11-06] MEDS ORDERED: ACETAMINOPHEN 500 MG TABLET PO ONE (10:00)
[2022-11-06 10:18] LABS: ABG BASE EXCESS 0.3 mmol/L (-2.0-3.0); ABG HCO3 23.6 mmol/L (21.0-28.0); ABG PCO2 34 mmHg (32-45)
[2022-11-06] MEDS: HEPARIN 5,000 UNIT VIAL SQ SCH (12:54)
[2022-11-06] MEDS: ZOSYN 3.375GM +NS 50ML IVPB SCH (12:57)
[2022-11-06] MEDS ORDERED: KCL 20 MEQ ERTAB PO PRN (13:00)
[2022-11-06] MEDS ORDERED: HYDRALAZINE 20MG/ML VIAL IV PRN (13:00)
[2022-11-06] MEDS ORDERED: POTASSIUM CHLORIDE 10% ELIXIR 20 MEQ/15 ML UDCUP PO PRN (13:00)
[2022-11-06] MEDS ORDERED: MAGNESIUM 2GM PREMIX 50ML 50 ML IV PRN (13:00)
[2022-11-06] MEDS ORDERED: 0.9%NACL 50ML IV SCH (13:00)
[2022-11-06] MEDS ORDERED: POTASSIUM CHLORIDE 20MEQ/100ML 100 ML IV PRN (13:00)
[2022-11-06] MEDS: AZITHROMYCIN 500MG+NS 250ML IVPB SCH (13:20)
[2022-11-06 14:37] LABS: PARTIAL THROMBOPLASTIN TIME 28.5 SEC (26.3-35.5)
[2022-11-06 15:08] LABS: INR 1.13 (0.85-1.15); PROTHROMBIN TIME 12.2 SEC (9.6-11.6)
[2022-11-06] MEDS: INSULIN HUMULIN R 100 UNIT/ML 3ML SQ SCH ×2 (16:30→21:00)
[2022-11-06] MEDS: METRONIDAZOLE 500MG/100ML BAG 100 ML IVPB SCH ×2 (17:06→20:57)
[2022-11-06] MEDS ORDERED: IPRATROPIUM 0.5 MG/2.5 ML INH IH SCH (18:00)
[2022-11-06 18:35] VITALS: BP 143/65
[2022-11-06 19:00] VITALS: BP 130/64
[2022-11-06] MEDS: BUDESONIDE 0.5 MG/2 ML INH IH SCH (19:27)
[2022-11-06] MEDS: FAMOTIDINE 20MG TAB PO SCH (20:57)
[2022-11-06] MEDS ORDERED: MONTELUKAST SODIUM 10 MG TAB PO SCH (21:00)
[2022-11-06] MEDS ORDERED: ACETAMINOPHEN 325 MG TAB PO PRN (22:00)
[2022-11-06] MEDS: IPRATROPIUM 0.5 MG/2.5 ML INH IH SCH (23:26)
[2022-11-07] VITALS (21 sets, daily range): BP systolic 112–171; BP diastolic 53–74
[2022-11-07] MEDS: ZOSYN 3.375GM +NS 50ML IVPB SCH (00:53)
[2022-11-07] MEDS: HEPARIN 5,000 UNIT VIAL SQ SCH ×2 (00:57→13:55)
[2022-11-07 04:09] LABS: INR 1.25 (0.85-1.15); PROTHROMBIN TIME 13.5 SEC (9.6-11.6)
[2022-11-07 04:10] LABS: PARTIAL THROMBOPLASTIN TIME 33.5 SEC (26.3-35.5)
[2022-11-07] MEDS: METRONIDAZOLE 500MG/100ML BAG 100 ML IVPB SCH (05:07)
[2022-11-07] MEDS: INSULIN HUMULIN R 100 UNIT/ML 3ML SQ SCH ×3 (06:32→16:03)
[2022-11-07] MEDS: IPRATROPIUM 0.5 MG/2.5 ML INH IH SCH ×2 (06:57→11:12)
[2022-11-07] MEDS: BUDESONIDE 0.5 MG/2 ML INH IH SCH (06:57)
[2022-11-07] MEDS: FAMOTIDINE 20MG TAB PO SCH (08:11)
[2022-11-07] MEDS ORDERED: DOXY100T2 PO (12:46)
[2022-11-07] MEDS: AZITHROMYCIN 500MG+NS 250ML IVPB SCH (13:50)
== END 2022-11-07 16:31 | disposition home or self-care (01) ==
LOC: EDH 07:21 → EDHIP 11:30 → INTOOBSV 11:30 → 2DH 17:07 → EDHIP 17:30 → 2DH 18:14
PROVIDERS: ADMIT Hospitalist; ATTEND Hospitalist
DX: J96.01 Acute respiratory failure with hypoxia (principal); K52.9 Noninfective gastroenteritis and colitis, unspecified; J90 Pleural effusion, not elsewhere classified; I13.2 Hypertensive heart and chronic kidney disease with heart failure and with stage 5 chronic kidney disease, or end stage renal disease; E11.22 Type 2 diabetes mellitus with diabetic chronic kidney disease; I50.33 Acute on chronic diastolic (congestive) heart failure; N18.6 End stage renal disease; D63.1 Anemia in chronic kidney disease; E78.5 Hyperlipidemia, unspecified; J44.9 Chronic obstructive pulmonary disease, unspecified; F32.A Depression, unspecified; R74.01 Elevation of levels of liver transaminase levels; Z86.16 Personal history of COVID-19; Z99.2 Dependence on renal dialysis; Z99.81 Dependence on supplemental oxygen; Z79.899 Other long term (current) drug therapy
CPT/HCPCS: 96372 ×2; 96361; 96365; 96366 ×2; 96375; 96367; 96368; 99285; 84484; 80053; 82803; 85025; 85610 ×2; 85730 ×2; 82948 ×5; 36415 ×2; 71045; 71250; 76604; 93005; 36600; 94640 ×4; 94664; J7030; J2405; J2543 ×3; J0456 ×2; J1644 ×4; J3490 ×3; J1815 ×2; G0378 ×3; 90935

== ENCOUNTER 2023-02-23 14:18 | Inpatient (IN) | payer BC, MEDICARE ==
[~2023-02-23] VITALS: Ht 152.4 cm; Wt 58.7 kg
[~2023-02-23 14:18] MED LIST changes: -AEC81 PO; -ALBUHFA IH; -AMLO-258 PO; -ASCO500T20 PO; -ATOR40TA71 PO; -BENZ-70 PO; -CARV3.12 PO; -CEFD300C3 PO; -CHOL200059 PO; -DEXA6TAB7 PO; -DICY20TA3 PO; +DOXY100T2 PO; -DULO30CA52 PO; -ESOM40CA54 PO; -FOLI1TAB85 PO; -FURO40TA5 PO; -GLIM4TAB36 PO; -HYDR-4154 PO; -INSLAN SQ; -INSU100V SQ; -RAMI10CA69 PO; -ROPI0.5T7 PO; -ZINC220C6 PO
[2023-02-23 14:46] LABS: MEAN CORPUSCULAR HEMOGLOBIN 30.7 pg (27.0-33.0); MEAN CORPUSCULAR HGB CONC 32.3 g/dL (32.0-36.0); MEAN CORPUSCULAR VOLUME 95.2 fL (79-99); PLATELET COUNT (AUTO) 160 K/uL (130-400); RED CELL DISTRIBUTION WIDTH 15.7 % (11.0-15.5)
[2023-02-23 15:04] LABS: ALBUMIN 3.4 g/dL (3.5-5.0); BILIRUBIN,TOTAL 1.5 mg/dL (0.2-1.0); CREATININE 5.6 mg/dL (0.5-1.5); POTASSIUM 4.8 mmol/L (3.5-5.1); TOTAL PROTEIN, SERUM 7.6 g/dL (6.0-8.3)
[2023-02-23 15:09] LABS: B-TYPE NATRIURETIC PEPTIDE > 5000 pg/mL (0-100)
[2023-02-23 15:50] LABS: SARS-CoV-2, RNA, NAAT NEGATIVE SARS CoV-2 (NEGATIVE)
[2023-02-23 15:56] LABS: RAPID GROUP A STREP negative (NEGATIVE)
[2023-02-23 16:06] LABS: INFLUENZA TYPE A Negative For Type A (NEGATIVE); INFLUENZA TYPE B Negative For Type B (NEGATIVE)
[2023-02-23] MEDS ORDERED: LACTULOSE 20 GM/30 ML UDCUP PO PRN (18:00)
[2023-02-23] MEDS ORDERED: HYDRALAZINE 20MG/ML VIAL IV PRN (18:00)
[2023-02-23] MEDS ORDERED: LABETALOL 20MG SYG IV PRN (18:00)
[2023-02-23] MEDS ORDERED: ONDANSETRON 4MG INJ IVP PRN (18:00)
[2023-02-23] MEDS ORDERED: IPRATROPIUM/ALBUTEROL SULFATE 3 ML SOLUTION IH PRN (18:00)
[2023-02-23] MEDS ORDERED: DOCUSATE SODIUM 100 MG CAP PO PRN (18:00)
[2023-02-23] MEDS ORDERED: ACETAMINOPHEN 325 MG TAB PO PRN (18:00)
[2023-02-23] MEDS ORDERED: TEMAZEPAM 15 MG CAPSULE PO PRN (18:00)
[2023-02-23] MEDS ORDERED: CLONIDINE HCL 0.1 MG TABLET PO PRN (18:00)
[2023-02-23] MEDS ORDERED: ACETAMINOPHEN 650 MG SUPPOSITORY RC PRN (18:00)
[2023-02-23] MEDS: HEPARIN 5,000 UNIT VIAL SQ SCH (18:14)
[2023-02-23 20:02] LABS: ABG BASE EXCESS -2.6 mmol/L (-2.0-3.0); ABG HCO3 21.1 mmol/L (21.0-28.0); ABG OXYGEN SATURATION 98.1 % (95.0-99.0); ABG PCO2 33 mmHg (32-45); ABG PH 7.423 (7.35-7.450); CARBON MONOXIDE 1.2; HHb 1.9; PO2, ARTERIAL BG 116.3 mmHg (83.0-108.0)
[2023-02-23 20:28] VITALS: PULSE 56; RESP 18; O2SAT 99
[2023-02-23] MEDS: FUROSEMIDE 40MG VIAL IV SCH (20:51)
[2023-02-23] MEDS: FAMOTIDINE 20MG VIAL IV SCH (20:51)
[2023-02-23] MEDS: MIDODRINE HCL 5 MG TABLET PO SCH (20:51)
[2023-02-23] MEDS: INSULIN HUMULIN R 100 UNIT/ML 3ML SQ SCH (20:52)
[2023-02-23 21:50] VITALS: BP 112/49; PULSE 55; RESP 20; O2SAT 95
[2023-02-24] VITALS (20 sets, daily range): BP systolic 102–159; BP diastolic 49–68; PULSE 52–61; RESP 16–20; TEMP 97.6–98; O2SAT 97–100
[2023-02-24] MEDS ORDERED: CARVEDILOL 3.125 MG TABLET PO ONE (03:30)
[2023-02-24] MEDS ORDERED: TRAZODONE HCL 50 MG TAB PO PRN (03:30)
[2023-02-24] MEDS ORDERED: ATOR10 PO (03:49)
[2023-02-24] MEDS ORDERED: ATOR40TA69 PO (03:53)
[2023-02-24] MEDS ORDERED: TRAZ-185 PO (03:53)
[2023-02-24] MEDS ORDERED: FOLI0.8T22 PO (03:53)
[2023-02-24] MEDS ORDERED: CARV3.12 PO (03:53)
[2023-02-24] MEDS ORDERED: CHLO25TA3 PO (03:53)
[2023-02-24] MEDS ORDERED: HYDR-4154 PO (03:53)
[2023-02-24 04:01] LABS: BASOPHILS # (AUTO) 0.11 K/uL (0.00-0.20); BASOPHILS % (AUTO) 1.4 % (0.0-5.0); EOSINOPHILS % (AUTO) 1.3 % (0.0-8.0); HEMATOCRIT 36.1 % (36-48); IMMATURE GRANULOCYTE ABSOLUTE 0.01 K/uL (0-1); LYMPHOCYTES % (AUTO) 25.8 % (21.0-51.0); MEAN CORPUSCULAR HEMOGLOBIN 30.4 pg (27.0-33.0); MEAN CORPUSCULAR HGB CONC 32.4 g/dL (32.0-36.0); MEAN CORPUSCULAR VOLUME 93.8 fL (79-99); MONOCYTES # (AUTO) 1.1 K/uL (0.1-1.0); MONOCYTES % (AUTO) 14.7 % (3.0-13.0); NEUTROPHILS # (AUTO) 4.3 K/uL (1.8-7.7); NEUTROPHILS % (AUTO) 56.7 % (40.0-77.0); PLATELET COUNT (AUTO) 172 K/uL (130-400); RED BLOOD CELL COUNT(AUTO) 3.85 MIL/uL (4.00-5.50); RED CELL DISTRIBUTION WIDTH 15.7 % (11.0-15.5); WHITE BLOOD COUNT (AUTO) 7.6 K/uL (4.8-10.8)
[2023-02-24 04:27] LABS: CREATININE 6.6 mg/dL (0.5-1.5); MAGNESIUM 2.5 mg/dL (1.80-2.40); PHOSPHORUS 5.9 mg/dL (2.5-4.9); POTASSIUM 4.8 mmol/L (3.5-5.1)
[2023-02-24] MEDS: HEPARIN 5,000 UNIT VIAL SQ SCH ×2 (05:52→17:49)
[2023-02-24] MEDS: INSULIN HUMULIN R 100 UNIT/ML 3ML SQ SCH ×4 (05:53→21:00)
[2023-02-24] MEDS ORDERED: INSULIN LISPRO 100 UNIT/ML 3ML SQ SCH (07:30)
[2023-02-24] MEDS ORDERED: DULOXETINE HCL 30 MG CAP PO SCH (09:00)
[2023-02-24] MEDS ORDERED: Vitamin B Complex/Vit C/Folic Acid PO SCH (09:00)
[2023-02-24] MEDS ORDERED: DICYCLOMINE HCL 20 MG TAB PO SCH (09:00)
[2023-02-24] MEDS ORDERED: HYDRALAZINE 25MG TABLET PO SCH (09:00)
[2023-02-24] MEDS: FUROSEMIDE 40MG VIAL IV SCH ×2 (09:21→21:07)
[2023-02-24] MEDS: MIDODRINE HCL 5 MG TABLET PO SCH ×3 (09:21→21:00)
[2023-02-24] MEDS ORDERED: ATORVASTATIN 40 MG TABLET PO SCH (21:00)
[2023-02-24] MEDS ORDERED: TRAZODONE HCL 50 MG TAB PO SCH (21:00)
[2023-02-24] MEDS ORDERED: SERTRALINE HCL 50 MG TABLET PO SCH (21:00)
[2023-02-24] MEDS: FAMOTIDINE 20MG VIAL IV SCH (21:07)
[2023-02-25] VITALS (15 sets, daily range): BP systolic 120–143; BP diastolic 55–67; PULSE 55–69; RESP 18–20; TEMP 97.7–97.9
[2023-02-25] MEDS: INSULIN HUMULIN R 100 UNIT/ML 3ML SQ SCH ×3 (07:30→16:30)
[2023-02-25] MEDS ORDERED: ATORVASTATIN 40 MG TABLET PO SCH (09:00)
[2023-02-25] MEDS: MIDODRINE HCL 5 MG TABLET PO SCH ×2 (09:00→12:00)
[2023-02-25] MEDS ORDERED: NON-FORMULARY MEDICATION 1 EACH (Folic Acid/Vitamin B Comp W-C (Rena-Vite Tablet) 0.8 MG) PO SCH (09:00)
[2023-02-25] MEDS ORDERED: Vitamin B Complex/Vit C/Folic Acid PO SCH (09:00)
[2023-02-25 10:27] LABS: ALBUMIN 2.9 g/dL (3.5-5.0); BILIRUBIN,TOTAL 1.1 mg/dL (0.2-1.0); CREATININE 5.7 mg/dL (0.5-1.5); MAGNESIUM 2.4 mg/dL (1.80-2.40); PHOSPHORUS 5.2 mg/dL (2.5-4.9); POTASSIUM 4.8 mmol/L (3.5-5.1); TOTAL PROTEIN, SERUM 7.3 g/dL (6.0-8.3)
[2023-02-25 14:39] LABS: BASOPHILS % (AUTO) 1.4 % (0.0-5.0); EOSINOPHILS # (AUTO) 0.09 K/uL (0.00-0.70); EOSINOPHILS % (AUTO) 1.3 % (0.0-8.0); IMMATURE GRANULOCYTE ABSOLUTE 0.02 K/uL (0-1); LYMPHOCYTES # (AUTO) 1.6 K/uL (1.0-4.8); LYMPHOCYTES % (AUTO) 23.4 % (21.0-51.0); MEAN CORPUSCULAR HEMOGLOBIN 30.9 pg (27.0-33.0); MEAN CORPUSCULAR HGB CONC 32.4 g/dL (32.0-36.0); MEAN CORPUSCULAR VOLUME 95.4 fL (79-99); MONOCYTES # (AUTO) 0.8 K/uL (0.1-1.0); MONOCYTES % (AUTO) 11.7 % (3.0-13.0); NEUTROPHILS # (AUTO) 4.3 K/uL (1.8-7.7); NEUTROPHILS % (AUTO) 61.9 % (40.0-77.0); PLATELET COUNT (AUTO) 159 K/uL (130-400); RED BLOOD CELL COUNT(AUTO) 3.88 MIL/uL (4.00-5.50); RED CELL DISTRIBUTION WIDTH 15.8 % (11.0-15.5)
== END 2023-02-25 18:45 | disposition home or self-care (01) | DRG 291 ==
LOC: EDH 14:18 → EDHIP 17:20 → OBSVTOIN 17:28 → EDHIP 17:28 → INTOOBSV 17:28 → UNDOADMOB 17:28 → 2DH 21:47 → EDHIP 21:47
PROVIDERS: ADMIT Internal Medicine Pulmonary Disease; ATTEND Internal Medicine Pulmonary Disease
PROC: 5A1D70Z Performance of Urinary Filtration, Intermittent, Less than 6 Hours Per Day (ICD-10-PCS; principal; 2023-02-24)
PROC: 5A1D70Z Performance of Urinary Filtration, Intermittent, Less than 6 Hours Per Day (ICD-10-PCS; 2023-02-25)
DX: I13.2 Hypertensive heart and chronic kidney disease with heart failure and with stage 5 chronic kidney disease, or end stage renal disease (principal); I50.31 Acute diastolic (congestive) heart failure; J96.01 Acute respiratory failure with hypoxia; N18.6 End stage renal disease; E87.1 Hypo-osmolality and hyponatremia; D64.9 Anemia, unspecified; E78.5 Hyperlipidemia, unspecified; F41.9 Anxiety disorder, unspecified; Z20.822 Contact with and (suspected) exposure to COVID-19; E11.22 Type 2 diabetes mellitus with diabetic chronic kidney disease; F32.A Depression, unspecified; E11.65 Type 2 diabetes mellitus with hyperglycemia; J44.9 Chronic obstructive pulmonary disease, unspecified; K52.9 Noninfective gastroenteritis and colitis, unspecified; Z79.4 Long term (current) use of insulin; Z86.16 Personal history of COVID-19; Z91.199 Patient's noncompliance with other medical treatment and regimen due to unspecified reason; Z99.2 Dependence on renal dialysis; Z99.81 Dependence on supplemental oxygen
CPT/HCPCS: 36415; 36600; 71045; 78582; 80048; 80053; 82435; 82803; 82947; 82948; 83605; 83735; 83880; 84100; 84132; 84295; 84484; 85018; 85025; 85027; 85378; 87635; 87804; 87880; 90935; 93005; 93306; 93970; 94664; A9540; A9558; C9803; G0378; J1644; J1815; J1940; J3490

== ENCOUNTER → 2023-03-15 | Outpatient (CLI) | payer BC, MEDICARE ==
[~2023-03-15] MED LIST changes: +ATOR40TA69 PO; -DOXY100T2 PO; +FOLI0.8T22 PO; +TRAZ-185 PO
== END | disposition home or self-care (01) ==
LOC: RAH 13:51
PROVIDERS: ATTEND Family Medicine
DX: J90 Pleural effusion, not elsewhere classified (principal); Z86.16 Personal history of COVID-19
CPT/HCPCS: 71046

== ENCOUNTER 2023-04-01 19:16 | Emergency (ER) | payer OTHER, MEDICARE ==
[~2023-04-01] VITALS: Ht 152.4 cm; Wt 63.5 kg
[2023-04-01 20:26] LABS: BASOPHILS # (AUTO) 0.09 K/uL (0.00-0.20); BASOPHILS % (AUTO) 1.2 % (0.0-5.0); EOSINOPHILS # (AUTO) 0.03 K/uL (0.00-0.70); EOSINOPHILS % (AUTO) 0.4 % (0.0-8.0); HEMATOCRIT 35.9 % (36-48); IMMATURE GRANULOCYTE ABSOLUTE 0.03 K/uL (0-1); LYMPHOCYTES # (AUTO) 0.8 K/uL (1.0-4.8); LYMPHOCYTES % (AUTO) 11.1 % (21.0-51.0); MEAN CORPUSCULAR HGB CONC 31.5 g/dL (32.0-36.0); MEAN CORPUSCULAR VOLUME 98.4 fL (79-99); MONOCYTES # (AUTO) 0.6 K/uL (0.1-1.0); MONOCYTES % (AUTO) 7.9 % (3.0-13.0); NEUTROPHILS # (AUTO) 5.8 K/uL (1.8-7.7); PLATELET COUNT (AUTO) 183 K/uL (130-400); RED BLOOD CELL COUNT(AUTO) 3.65 MIL/uL (4.00-5.50); RED CELL DISTRIBUTION WIDTH 14.6 % (11.0-15.5); WHITE BLOOD COUNT (AUTO) 7.3 K/uL (4.8-10.8)
[2023-04-01] MEDS ORDERED: FAMOTIDINE 20MG VIAL IV ONE (20:30)
[2023-04-01 20:43] LABS: ALBUMIN 2.9 g/dL (3.5-5.0); BILIRUBIN,TOTAL 1.2 mg/dL (0.2-1.0); CREATININE 3.6 mg/dL (0.5-1.5); POTASSIUM 4.2 mmol/L (3.5-5.1); TOTAL PROTEIN, SERUM 7.9 g/dL (6.0-8.3)
[2023-04-01 21:00] LABS: ABG BASE EXCESS 0.3 mmol/L (-2.0-3.0); ABG HCO3 23.8 mmol/L (21.0-28.0); ABG OXYGEN SATURATION 97.8 % (95.0-99.0); ABG PCO2 35 mmHg (32-45); ABG PH 7.456 (7.35-7.450); CARBON MONOXIDE 0.9; DEVICE COMMENT RIGHT RADIAL; HHb 2.2; PO2, ARTERIAL BG 109.6 mmHg (83.0-108.0); VENT MODE, BG RN COLLAZO (ROOM AIR)
[2023-04-01] MEDS ORDERED: INSULIN HUMULIN R 100 UNIT/ML 3ML IV ONE (21:00)
[2023-04-01] MEDS ORDERED: FAMO-136 PO (22:37)
[2023-04-01 22:52] VITALS: BP 127/45; PULSE 74; RESP 16; O2SAT 99
== END 2023-04-01 23:05 | disposition home or self-care (01) ==
LOC: EDH 19:16
DX: R07.89 Other chest pain (principal); K21.9 Gastro-esophageal reflux disease without esophagitis; E11.9 Type 2 diabetes mellitus without complications; E78.00 Pure hypercholesterolemia, unspecified; Z90.49 Acquired absence of other specified parts of digestive tract
CPT/HCPCS: 99285; 96374; 71045; 96375; 82947; 84484 ×2; 80053; 82803; 83690; 85025; 83605; 36415; 93005; 36600; 82435; 84132; 84295; 85018; 82948; J1815; J3490

== ENCOUNTER 2023-05-17 19:13 | Inpatient (IN) | payer OTHER, MEDICARE ==
[~2023-05-17] VITALS: Ht 152.4 cm; Wt 60.8 kg
[~2023-05-17 19:13] MED LIST changes: +FAMO-136 PO
[2023-05-17 19:48] LABS: BASOPHILS # (AUTO) 0.07 K/uL (0.00-0.20); BASOPHILS % (AUTO) 0.8 % (0.0-5.0); EOSINOPHILS # (AUTO) 0.01 K/uL (0.00-0.70); EOSINOPHILS % (AUTO) 0.1 % (0.0-8.0); HEMATOCRIT 35.4 % (36-48); IMMATURE GRANULOCYTE ABSOLUTE 0.03 K/uL (0-1); LYMPHOCYTES % (AUTO) 23.5 % (21.0-51.0); MEAN CORPUSCULAR HEMOGLOBIN 30.7 pg (27.0-33.0); MEAN CORPUSCULAR HGB CONC 33.1 g/dL (32.0-36.0); MEAN CORPUSCULAR VOLUME 92.9 fL (79-99); MONOCYTES # (AUTO) 0.9 K/uL (0.1-1.0); NEUTROPHILS # (AUTO) 5.4 K/uL (1.8-7.7); NEUTROPHILS % (AUTO) 64.2 % (40.0-77.0); PLATELET COUNT (AUTO) 198 K/uL (130-400); RED BLOOD CELL COUNT(AUTO) 3.81 MIL/uL (4.00-5.50); WHITE BLOOD COUNT (AUTO) 8.4 K/uL (4.8-10.8)
[2023-05-17 20:25] LABS: ALBUMIN 3.1 g/dL (3.5-5.0); BILIRUBIN,TOTAL 1.6 mg/dL (0.2-1.0); CREATININE 4.6 mg/dL (0.5-1.5); POTASSIUM 5.3 mmol/L (3.5-5.1); TOTAL PROTEIN, SERUM 8.2 g/dL (6.0-8.3)
[2023-05-17] MEDS ORDERED: 0.9% NACL 500ML IV.SOLN 500 ML IV SCH (20:30)
[2023-05-17] MEDS ORDERED: NOREPINEPHRIN 4MG/NS 250ML 250 ML IV ONE (20:32)
[2023-05-17] MEDS: NOREPINEPHRIN 4MG/NS 250ML 250 ML IV SCH (20:46)
[2023-05-17] MEDS ORDERED: CEFTRIAXONE 1G VIAL IVPB ONE (21:00)
[2023-05-17] MEDS ORDERED: AZITHROMYCIN 250 MG TABLET PO ONE (21:00)
[2023-05-17] MEDS ORDERED: ONDANSETRON 4MG INJ ONE (21:27)
[2023-05-17] MEDS ORDERED: ONDANSETRON 4MG INJ IV PRN (22:00)
[2023-05-17] MEDS ORDERED: ZOLPIDEM TARTRATE 5 MG TAB PO PRN (22:00)
[2023-05-17] MEDS ORDERED: ONDANSETRON 4MG INJ IVP ONE (22:00)
[2023-05-17] MEDS ORDERED: HYDRALAZINE 20MG/ML VIAL IV PRN (22:00)
[2023-05-17] MEDS ORDERED: ACETAMINOPHEN WITH CODEINE 1 TAB TAB PO PRN (22:00)
[2023-05-17] MEDS ORDERED: DiphenhydrAMINE HCL 50 MG/ML VIAL IV PRN (22:00)
[2023-05-17] MEDS ORDERED: NITROGLYCERIN 0.4 MG SL TAB SL PRN (22:00)
[2023-05-17] MEDS ORDERED: LACTULOSE 20 GM/30 ML UDCUP PO PRN (22:00)
[2023-05-17] MEDS ORDERED: GUAIFENESIN-DM 200/20 MG 10 ML PO PRN (22:00)
[2023-05-17] MEDS ORDERED: ACETAMINOPHEN 325 MG TAB PO PRN (22:00)
[2023-05-17] MEDS ORDERED: MAG/ALUM/SIMETH 30 ML UDCUP PO PRN (22:00)
[2023-05-17 23:14] VITALS: PULSE 72; RESP 19; O2SAT 97
[2023-05-17] MEDS: ALBUTEROL 0.083% 2.5 MG/3 ML INH IH PRN (23:14)
[2023-05-17 23:15] VITALS: PULSE 73; RESP 20
[2023-05-18] VITALS (159 sets, daily range): BP systolic 87–153; BP diastolic 23–98; PULSE 68–87; RESP 10–31; O2SAT 97–99
[2023-05-18 03:00] LABS: ABG BASE EXCESS -13.3 mmol/L (-2.0-3.0); ABG HCO3 10.5 mmol/L (21.0-28.0); ABG OXYGEN SATURATION 87.6 % (95.0-99.0); ABG PCO2 21 mmHg (32-45); ABG PH 7.314 (7.35-7.450); PO2, ARTERIAL BG 56.2 mmHg (83.0-108.0); VENT MODE, BG RA (ROOM AIR)
[2023-05-18] MEDS ORDERED: CARV3.12 PO (03:20)
[2023-05-18] MEDS ORDERED: FURO40TA7 PO (03:20)
[2023-05-18] MEDS ORDERED: SERT-439 PO (03:20)
[2023-05-18] MEDS ORDERED: CHLO25TA3 PO (03:20)
[2023-05-18 03:25] LABS: BASOPHILS # (AUTO) 0.08 K/uL (0.00-0.20); BASOPHILS % (AUTO) 0.6 % (0.0-5.0); HEMATOCRIT 33.1 % (36-48); IMMATURE GRANULOCYTE ABSOLUTE 0.11 K/uL (0-1); LYMPHOCYTES # (AUTO) 0.6 K/uL (1.0-4.8); LYMPHOCYTES % (AUTO) 4.6 % (21.0-51.0); MEAN CORPUSCULAR HEMOGLOBIN 30.6 pg (27.0-33.0); MEAN CORPUSCULAR VOLUME 95.7 fL (79-99); NEUTROPHILS # (AUTO) 11.9 K/uL (1.8-7.7); PLATELET COUNT (AUTO) 182 K/uL (130-400); RED BLOOD CELL COUNT(AUTO) 3.46 MIL/uL (4.00-5.50); RED CELL DISTRIBUTION WIDTH 16.1 % (11.0-15.5); WHITE BLOOD COUNT (AUTO) 13.7 K/uL (4.8-10.8)
[2023-05-18 03:41] LABS: HEMOGLOBIN A1C 9.9 % (4.0-6.0)
[2023-05-18 03:54] LABS: ALBUMIN 2.9 g/dL (3.5-5.0); BILIRUBIN,TOTAL 1.6 mg/dL (0.2-1.0); CREATININE 4.5 mg/dL (0.5-1.5); MAGNESIUM 1.9 mg/dL (1.80-2.40); THYROID STIMULATING HORMONE 3.69 uIU/mL (0.36-3.74); TOTAL PROTEIN, SERUM 7.3 g/dL (6.0-8.3)
[2023-05-18] MEDS ORDERED: INSULIN HUMULIN R 100 UNIT/ML 3ML SQ ONE (04:30)
[2023-05-18] MEDS ORDERED: SODIUM BICARB 50MEQ 50ML VIAL IV ONE (04:30)
[2023-05-18] MEDS: NOREPINEPHRIN 4MG/NS 250ML 250 ML IV SCH ×2 (04:39→15:23)
[2023-05-18] MEDS ORDERED: ZOSYN 3.375GM+NS 50ML 50 ML IV SCH ×2 (05:00→09:00)
[2023-05-18] MEDS: ALBUTEROL 0.083% 2.5 MG/3 ML INH IH PRN (06:58)
[2023-05-18] MEDS ORDERED: SODIUM BICARB 50MEQ 50ML VIAL IV STA (08:28)
[2023-05-18] MEDS ORDERED: INSULIN REGULAR, HUMAN 3ML 100 UNIT in 0.9%NACL 100ML 100 ML IV SCH ×2 (08:30)
[2023-05-18] MEDS ORDERED: 0.9%NACL 1000ML 1,000 ML IV SCH (08:30)
[2023-05-18] MEDS ORDERED: MAGNESIUM 2GM PREMIX 50ML 50 ML IV SCH (08:30)
[2023-05-18] MEDS ORDERED: VANCOMYCIN PROTOCOL PER PHARMACY IV SCH (08:30)
[2023-05-18] MEDS: FAMOTIDINE 20MG TAB PO SCH (08:55)
[2023-05-18] MEDS: SERTRALINE HCL 50 MG TABLET PO SCH (08:57)
[2023-05-18] MEDS: ATORVASTATIN 40 MG TABLET PO SCH (08:57)
[2023-05-18] MEDS: HEPARIN 5,000 UNIT VIAL SQ SCH ×2 (08:58→20:49)
[2023-05-18] MEDS ORDERED: CARVEDILOL 3.125 MG TABLET PO SCH (09:00)
[2023-05-18] MEDS ORDERED: POTASSIUM CHLORIDE 10MEQ/100ML 100 ML IV PRN (09:00)
[2023-05-18] MEDS ORDERED: FAMOTIDINE 20MG VIAL IV SCH ×2 (09:00)
[2023-05-18] MEDS ORDERED: POTASSIUM CHLORIDE 20MEQ/100ML 100 ML IV PRN (09:00)
[2023-05-18] MEDS ORDERED: NON-FORMULARY MEDICATION 1 EACH (Folic Acid/Vitamin B Comp W-C (Rena-Vite Tablet) 0.8 MG) PO SCH (09:00)
[2023-05-18] MEDS: INSULIN GLARGINE 100 UNITS/ML 10 ML VIAL SQ SCH (09:00)
[2023-05-18] MEDS ORDERED: VANCOMYCIN 1.5 GM/250 ML BAG 250 ML IV ONE (09:00)
[2023-05-18] MEDS ORDERED: POTASSIUM CHLORIDE 10% ELIXIR 20 MEQ/15 ML UDCUP PO PRN (09:00)
[2023-05-18] MEDS: PSYLLIUM SEED 1 EACH PACKET PO SCH ×2 (09:04→20:48)
[2023-05-18 09:47] LABS: CREATININE 5.5 mg/dL (0.5-1.5); POTASSIUM 3.6 mmol/L (3.5-5.1)
[2023-05-18 09:51] LABS: INR 1.28 (0.85-1.15); PROTHROMBIN TIME 14.6 SEC (9.6-11.6)
[2023-05-18 09:52] LABS: PARTIAL THROMBOPLASTIN TIME 25.9 SEC (26.3-35.5)
[2023-05-18 10:24] LABS: ABG BASE EXCESS 0.5 mmol/L (-2.0-3.0); ABG HCO3 22.9 mmol/L (21.0-28.0); ABG OXYGEN SATURATION 97.6 % (95.0-99.0); ABG PCO2 31 mmHg (32-45); ABG PH 7.489 (7.35-7.450); DEVICE COMMENT RR ROSIE RN; PO2, ARTERIAL BG 90.7 mmHg (83.0-108.0); VENT MODE, BG NC (ROOM AIR)
[2023-05-18] MEDS: INSULIN HUMULIN R 100 UNIT/ML 3ML SQ SCH ×3 (11:30→19:16)
[2023-05-18 11:52] LABS: BILIRUBIN,URINE MODERATE mg/dL (NEGATIVE); COLOR,URINE YELLOW (YELLOW); GLUCOSE, URINE (UA) 100 mg/dL (NEGATIVE); KETONES,URINE 15 mg/dL (NEGATIVE); LEUKOCYTE ESTERASE ,URINE MODERATE Leu/uL (NEGATIVE); NITRATE,URINE NEGATIVE (NEGATIVE); OCCULT BLOOD,URINE LARGE (NEGATIVE); PH,URINE 5.5 (5.0-8.0); PROTEIN,URINE >=300 mg/dL (NEGATIVE)
[2023-05-18 11:54] LABS: ADD UA MICROSCOPIC YES; APPEARANCE,URINE CLOUDY (CLEAR)
[2023-05-18] MEDS ORDERED: ENOXAPARIN SODIUM 30 MG/0.3 ML SQ ONE (11:55)
[2023-05-18 11:56] LABS: SQUAMOUS EPITHELIAL CELL,UR Moderate /HPF (0-2)
[2023-05-18 11:57] LABS: WBC,URINE >100 /HPF (0-1)
[2023-05-18 11:58] LABS: BACTERIA,URINE Moderate /HPF (None Seen)
[2023-05-18 12:22] LABS: SARS-CoV-2, RNA, NAAT NEGATIVE SARS CoV-2 (NEGATIVE)
[2023-05-18 12:27] LABS: INFLUENZA TYPE A Negative For Type A (NEGATIVE); INFLUENZA TYPE B Negative For Type B (NEGATIVE)
[2023-05-18] MEDS: MIDODRINE HCL 5 MG TABLET PO SCH ×2 (13:42→20:48)
[2023-05-18 14:38] LABS: CREATININE 5.5 mg/dL (0.5-1.5); POTASSIUM 3.1 mmol/L (3.5-5.1)
[2023-05-18] MEDS: KCL 20 MEQ ERTAB PO PRN (15:20)
[2023-05-18] MEDS: ZOSYN 3.375GM+NS 50ML 50 ML IV SCH (17:20)
[2023-05-18 18:39] LABS: CREATININE 5.5 mg/dL (0.5-1.5); POTASSIUM 3.2 mmol/L (3.5-5.1)
[2023-05-18] MEDS: TRAZODONE HCL 50 MG TAB PO SCH (20:48)
[2023-05-18 23:42] LABS: CREATININE 5.8 mg/dL (0.5-1.5); POTASSIUM 3.5 mmol/L (3.5-5.1)
[2023-05-19] VITALS (46 sets, daily range): BP systolic 89–161; BP diastolic 31–96; PULSE 58–77; RESP 10–29; O2SAT 95–100
[2023-05-19 02:07] LABS: CREATININE 5.8 mg/dL (0.5-1.5); MAGNESIUM 2.4 mg/dL (1.80-2.40); POTASSIUM 3.4 mmol/L (3.5-5.1)
[2023-05-19] MEDS: ZOSYN 3.375GM+NS 50ML 50 ML IV SCH ×2 (04:44→16:55)
[2023-05-19 05:41] LABS: BASOPHILS # (AUTO) 0.13 K/uL (0.00-0.20); BASOPHILS % (AUTO) 1.2 % (0.0-5.0); EOSINOPHILS # (AUTO) 0.08 K/uL (0.00-0.70); EOSINOPHILS % (AUTO) 0.7 % (0.0-8.0); HEMATOCRIT 30.8 % (36-48); IMMATURE GRANULOCYTE ABSOLUTE 0.03 K/uL (0-1); LYMPHOCYTES # (AUTO) 1.6 K/uL (1.0-4.8); LYMPHOCYTES % (AUTO) 14.1 % (21.0-51.0); MEAN CORPUSCULAR HEMOGLOBIN 30.5 pg (27.0-33.0); MEAN CORPUSCULAR HGB CONC 32.5 g/dL (32.0-36.0); MEAN CORPUSCULAR VOLUME 93.9 fL (79-99); MONOCYTES # (AUTO) 1.2 K/uL (0.1-1.0); MONOCYTES % (AUTO) 10.7 % (3.0-13.0); NEUTROPHILS # (AUTO) 8.2 K/uL (1.8-7.7); PLATELET COUNT (AUTO) 182 K/uL (130-400); RED BLOOD CELL COUNT(AUTO) 3.28 MIL/uL (4.00-5.50); RED CELL DISTRIBUTION WIDTH 16.2 % (11.0-15.5); WHITE BLOOD COUNT (AUTO) 11.2 K/uL (4.8-10.8)
[2023-05-19 05:45] LABS: CREATININE 5.9 mg/dL (0.5-1.5); MAGNESIUM 2.4 mg/dL (1.80-2.40); POTASSIUM 3.3 mmol/L (3.5-5.1)
[2023-05-19] MEDS: KCL 20 MEQ ERTAB PO PRN ×2 (05:59→09:19)
[2023-05-19] MEDS: INSULIN HUMULIN R 100 UNIT/ML 3ML SQ SCH ×4 (07:30→20:55)
[2023-05-19] MEDS: PSYLLIUM SEED 1 EACH PACKET PO SCH ×3 (09:00→20:43)
[2023-05-19] MEDS ORDERED: ENOXAPARIN SODIUM 30 MG/0.3 ML SQ SCH (09:00)
[2023-05-19] MEDS: SERTRALINE HCL 50 MG TABLET PO SCH (09:19)
[2023-05-19] MEDS: MIDODRINE HCL 5 MG TABLET PO SCH ×3 (09:19→20:45)
[2023-05-19] MEDS: ATORVASTATIN 40 MG TABLET PO SCH (09:19)
[2023-05-19] MEDS: HEPARIN 5,000 UNIT VIAL SQ SCH ×2 (09:21→20:47)
[2023-05-19] MEDS: INSULIN GLARGINE 100 UNITS/ML 10 ML VIAL SQ SCH (09:28)
[2023-05-19 11:22] LABS: CREATININE 6.2 mg/dL (0.5-1.5); MAGNESIUM 2.5 mg/dL (1.80-2.40)
[2023-05-19] MEDS: TRAZODONE HCL 50 MG TAB PO SCH (20:43)
[2023-05-19] MEDS ORDERED: PSYLLIUM SEED 1 EACH PACKET PO SCH (21:00)
[2023-05-20] VITALS (21 sets, daily range): BP systolic 128–180; BP diastolic 59–93; PULSE 58–71; RESP 16–20; TEMP 97.7–97.8; O2SAT 99–100
[2023-05-20] MEDS: ZOSYN 3.375GM+NS 50ML 50 ML IV SCH ×2 (05:00→17:12)
[2023-05-20 05:40] LABS: % IRON SATURATION 52.9 % (22-44)
[2023-05-20] MEDS: INSULIN HUMULIN R 100 UNIT/ML 3ML SQ SCH ×4 (07:29→20:09)
[2023-05-20] MEDS: MIDODRINE HCL 5 MG TABLET PO SCH (09:00)
[2023-05-20] MEDS: HEPARIN 5,000 UNIT VIAL SQ SCH ×2 (09:24→20:09)
[2023-05-20] MEDS: INSULIN GLARGINE 100 UNITS/ML 10 ML VIAL SQ SCH (09:24)
[2023-05-20] MEDS: ATORVASTATIN 40 MG TABLET PO SCH (09:26)
[2023-05-20] MEDS: FAMOTIDINE 20MG TAB PO SCH (09:26)
[2023-05-20] MEDS: PSYLLIUM SEED 1 EACH PACKET PO SCH ×2 (09:26→20:10)
[2023-05-20] MEDS: SERTRALINE HCL 50 MG TABLET PO SCH (09:27)
[2023-05-20] MEDS ORDERED: VANCOMYCIN 1G/250ML KIT 250 ML IV SCH (16:00)
[2023-05-20] MEDS: TRAZODONE HCL 50 MG TAB PO SCH (20:02)
[2023-05-20 21:25] LABS: HEPATITIS B CORE AB TOTAL Non-Reactive (Nonreactive); HEPATITIS B SURFACE ANTIBODY Positive (Reactive); HEPATITIS B SURFACE ANTIGEN Non-Reactive (Nonreactive)
[2023-05-21] VITALS (7 sets, daily range): BP systolic 100–157; BP diastolic 45–83; PULSE 45–74; RESP 16–18; O2SAT 97–99
[2023-05-21] MEDS: ZOSYN 3.375GM+NS 50ML 50 ML IV SCH (04:11)
[2023-05-21 04:59] LABS: HEMATOCRIT 30.9 % (36-48); MEAN CORPUSCULAR HEMOGLOBIN 30.2 pg (27.0-33.0); MEAN CORPUSCULAR HGB CONC 32.4 g/dL (32.0-36.0); MEAN CORPUSCULAR VOLUME 93.4 fL (79-99); RED BLOOD CELL COUNT(AUTO) 3.31 MIL/uL (4.00-5.50); RED CELL DISTRIBUTION WIDTH 16.4 % (11.0-15.5); WHITE BLOOD COUNT (AUTO) 7.1 K/uL (4.8-10.8)
[2023-05-21 05:10] LABS: CREATININE 4.9 mg/dL (0.5-1.5); MAGNESIUM 2.2 mg/dL (1.80-2.40); POTASSIUM 3.3 mmol/L (3.5-5.1)
[2023-05-21] MEDS: KCL 20 MEQ ERTAB PO PRN ×3 (05:41→14:24)
[2023-05-21] MEDS: INSULIN HUMULIN R 100 UNIT/ML 3ML SQ SCH ×3 (05:42→16:34)
[2023-05-21] MEDS: HEPARIN 5,000 UNIT VIAL SQ SCH (09:35)
[2023-05-21] MEDS: INSULIN GLARGINE 100 UNITS/ML 10 ML VIAL SQ SCH (09:35)
[2023-05-21] MEDS: ATORVASTATIN 40 MG TABLET PO SCH (09:36)
[2023-05-21] MEDS: PSYLLIUM SEED 1 EACH PACKET PO SCH (09:36)
[2023-05-21] MEDS: SERTRALINE HCL 50 MG TABLET PO SCH (09:36)
[2023-05-23 23:08] LABS: AMPHETAMINES SERUM Negative ng/mL (Cutoff:50); COCAINE+METABOLITES SERUM Negative ng/mL (Cutoff:25)
== END 2023-05-21 18:05 | disposition home or self-care (01) | DRG 871 ==
LOC: EDH 19:13 → OBSVTOIN 21:49 → EDHIP 21:49 → 2BH 05-18 01:09 → 4CH 05-19 16:30
PROVIDERS: ADMIT Internal Medicine; ATTEND Internal Medicine
PROC: 02HV33Z Insertion of Infusion Device into Superior Vena Cava, Percutaneous Approach (ICD-10-PCS; principal; 2023-05-18)
PROC: 5A1D70Z Performance of Urinary Filtration, Intermittent, Less than 6 Hours Per Day (ICD-10-PCS; 2023-05-20)
DX: A41.9 Sepsis, unspecified organism (principal); E11.10 Type 2 diabetes mellitus with ketoacidosis without coma; N18.6 End stage renal disease; R57.1 Hypovolemic shock; I12.0 Hypertensive chronic kidney disease with stage 5 chronic kidney disease or end stage renal disease; E87.1 Hypo-osmolality and hyponatremia; N30.00 Acute cystitis without hematuria; Z20.822 Contact with and (suspected) exposure to COVID-19; E11.22 Type 2 diabetes mellitus with diabetic chronic kidney disease; E86.0 Dehydration; E87.5 Hyperkalemia; I95.9 Hypotension, unspecified; E11.65 Type 2 diabetes mellitus with hyperglycemia; D64.9 Anemia, unspecified; R91.8 Other nonspecific abnormal finding of lung field; E78.00 Pure hypercholesterolemia, unspecified; I65.22 Occlusion and stenosis of left carotid artery; K21.9 Gastro-esophageal reflux disease without esophagitis; I25.10 Atherosclerotic heart disease of native coronary artery without angina pectoris; R62.7 Adult failure to thrive; F41.9 Anxiety disorder, unspecified; F32.A Depression, unspecified; Z99.2 Dependence on renal dialysis
CPT/HCPCS: 36415; 36600; 71045; 80048; 80053; 80202; 80305; 81001; 82140; 82550; 82803; 82948; 83036; 83540; 83550; 83605; 83630; 83690; 83735; 83874; 83880; 84145; 84443; 84484; 85025; 85027; 85610; 85730; 86704; 86706; 87040; 87046; 87077; 87088; 87177; 87186; 87324; 87338; 87340; 87635; 87804; 90935; 93005; 93306; 93356; 93880; 94640; 94664; 99291; G0378; J0696; J1644; J1815; J2405; J2543; J3370; J3475; J3490; A4600

== ENCOUNTER 2023-09-19 23:55 | Emergency (ER) | payer OTHER, MEDICARE ==
[~2023-09-19] VITALS: Ht 152.4 cm; Wt 67.1 kg
[~2023-09-19 23:55] MED LIST changes: +CARV3.12 PO; +CHLO25TA3 PO; +CHOL200074 PO; +FAMO20TA8 PO; +FURO40TA7 PO; +HYDR50TA37 PO; +MELA1TAB73 PO; +SERT-439 PO
[2023-09-20 00:39] LABS: BASOPHILS # (AUTO) 0.11 K/uL (0.00-0.20); BASOPHILS % (AUTO) 1.4 % (0.0-5.0); EOSINOPHILS # (AUTO) 0.11 K/uL (0.00-0.70); EOSINOPHILS % (AUTO) 1.4 % (0.0-8.0); HEMATOCRIT 35.1 % (36-48); IMMATURE GRANULOCYTE ABSOLUTE 0.02 K/uL (0-1); LYMPHOCYTES # (AUTO) 1.4 K/uL (1.0-4.8); LYMPHOCYTES % (AUTO) 17.6 % (21.0-51.0); MEAN CORPUSCULAR HGB CONC 32.2 g/dL (32.0-36.0); MEAN CORPUSCULAR VOLUME 96.4 fL (79-99); MONOCYTES # (AUTO) 1.3 K/uL (0.1-1.0); MONOCYTES % (AUTO) 16.1 % (3.0-13.0); NEUTROPHILS # (AUTO) 5.1 K/uL (1.8-7.7); NEUTROPHILS % (AUTO) 63.3 % (40.0-77.0); PLATELET COUNT (AUTO) 181 K/uL (130-400); RED BLOOD CELL COUNT(AUTO) 3.64 MIL/uL (4.00-5.50); RED CELL DISTRIBUTION WIDTH 17.1 % (11.0-15.5)
[2023-09-20 00:47] LABS: CREATININE 4.4 mg/dL (0.5-1.5); POTASSIUM 4.8 mmol/L (3.5-5.1)
[2023-09-20 00:52] LABS: ALBUMIN 3.3 g/dL (3.5-5.0); BILIRUBIN,TOTAL 1.2 mg/dL (0.2-1.0); TOTAL PROTEIN, SERUM 8.6 g/dL (6.0-8.3)
[2023-09-20 00:59] VITALS: PULSE 90; RESP 18
[2023-09-20] MEDS: ALBUTEROL 0.083% 2.5 MG/3 ML INH IH ONE (00:59)
[2023-09-20 01:14] LABS: INFLUENZA TYPE A Negative For Type A (NEGATIVE); INFLUENZA TYPE B Negative For Type B (NEGATIVE)
[2023-09-20] MEDS ORDERED: ALBU2.5V2 IH (01:33)
[2023-09-20] MEDS ORDERED: CEFU500T67 PO (01:33)
[2023-09-20] MEDS ORDERED: PRED20TA3 PO (01:33)
[2023-09-20] MEDS ORDERED: NEBU-307 MC (01:35)
[2023-09-20 03:10] VITALS: BP 148/76; PULSE 92; RESP 18; O2SAT 97
== END 2023-09-20 03:12 | disposition home or self-care (01) ==
LOC: EDH 09-20
DX: J44.1 Chronic obstructive pulmonary disease with (acute) exacerbation (principal); E78.00 Pure hypercholesterolemia, unspecified; K21.9 Gastro-esophageal reflux disease without esophagitis; I12.0 Hypertensive chronic kidney disease with stage 5 chronic kidney disease or end stage renal disease; E11.22 Type 2 diabetes mellitus with diabetic chronic kidney disease; N18.6 End stage renal disease; Z99.2 Dependence on renal dialysis; Z79.899 Other long term (current) drug therapy; Z86.16 Personal history of COVID-19; Z90.49 Acquired absence of other specified parts of digestive tract; Z20.822 Contact with and (suspected) exposure to COVID-19
CPT/HCPCS: 36415; 71045; 80053; 84484; 85025; 87426; 87804; 93005; 94640

== ENCOUNTER 2023-09-21 09:01 | Inpatient (IN) | payer OTHER, MEDICARE ==
[2023-09-21] VITALS (29 sets, daily range): BP systolic 103–126; BP diastolic 25–50; PULSE 68–77; RESP 11–24; O2SAT 95–97
[~2023-09-21] VITALS: Ht 152.4 cm; Wt 61.5 kg
[~2023-09-21 09:01] MED LIST changes: +ALBU2.5V2 IH; +CEFU500T67 PO; +NEBU-298 MC; +PRED20TA3 PO
[2023-09-21 09:40] LABS: BASOPHILS # (AUTO) 0.09 K/uL (0.00-0.20); BASOPHILS % (AUTO) 1.2 % (0.0-5.0); EOSINOPHILS # (AUTO) 1.22 K/uL (0.00-0.70); HEMATOCRIT 34.7 % (36-48); IMMATURE GRANULOCYTE ABSOLUTE 0.03 K/uL (0-1); LYMPHOCYTES # (AUTO) 1.2 K/uL (1.0-4.8); LYMPHOCYTES % (AUTO) 15.5 % (21.0-51.0); MEAN CORPUSCULAR HEMOGLOBIN 31.6 pg (27.0-33.0); MEAN CORPUSCULAR HGB CONC 31.7 g/dL (32.0-36.0); MEAN CORPUSCULAR VOLUME 99.7 fL (79-99); MONOCYTES # (AUTO) 1.1 K/uL (0.1-1.0); MONOCYTES % (AUTO) 14.8 % (3.0-13.0); NEUTROPHILS % (AUTO) 52.1 % (40.0-77.0); PLATELET COUNT (AUTO) 147 K/uL (130-400); RED BLOOD CELL COUNT(AUTO) 3.48 MIL/uL (4.00-5.50); RED CELL DISTRIBUTION WIDTH 16.9 % (11.0-15.5); WHITE BLOOD COUNT (AUTO) 7.6 K/uL (4.8-10.8)
[2023-09-21] MEDS: LACTATED RINGERS 1000ML 1,000 ML IV ONE ×2 (09:45→12:06)
[2023-09-21 09:51] LABS: ALBUMIN 3.1 g/dL (3.5-5.0); CREATININE 2.5 mg/dL (0.5-1.5); POTASSIUM 3.7 mmol/L (3.5-5.1)
[2023-09-21] MEDS: ALBUMIN (HUMAN) 5% 250 ML IV ONE (10:44)
[2023-09-21] MEDS ORDERED: HYDRALAZINE 20MG/ML VIAL IV PRN (14:30)
[2023-09-21] MEDS ORDERED: VANCOMYCIN PROTOCOL PER PHARMACY IV SCH (14:30)
[2023-09-21] MEDS ORDERED: CLONIDINE HCL 0.1 MG TABLET PO PRN (14:30)
[2023-09-21] MEDS ORDERED: HYDROMORPHONE 1 MG INJ IVP PRN (14:30)
[2023-09-21] MEDS ORDERED: LACTULOSE 20 GM/30 ML UDCUP PO PRN (14:30)
[2023-09-21] MEDS ORDERED: ACETAMINOPHEN 650 MG SUPPOSITORY RC PRN (14:30)
[2023-09-21] MEDS ORDERED: IPRATROPIUM/ALBUTEROL SULFATE 3 ML SOLUTION IH SCH (14:30)
[2023-09-21 14:54] LABS: ABG BASE EXCESS -5.1 mmol/L (-2.0-3.0); ABG HCO3 18.9 mmol/L (21.0-28.0); ABG OXYGEN SATURATION 96.6 % (95.0-99.0); ABG PCO2 33 mmHg (32-45); ABG PH 7.381 (7.35-7.450); PO2, ARTERIAL BG 87.7 mmHg (83.0-108.0)
[2023-09-21] MEDS: ACETAMINOPHEN 325 MG TAB PO PRN (14:59)
[2023-09-21] MEDS: MIDODRINE HCL 5 MG TABLET PO PRN (14:59)
[2023-09-21] MEDS: ZOSYN 3.375GM +NS 50ML IV SCH (14:59)
[2023-09-21] MEDS: VANCOMYCIN KIT 1 GM/250 ML IV.KIT IV ONE (15:54)
[2023-09-21] MEDS: NOREPINEPHRIN 4MG/NS 250ML 250 ML IV SCH (16:11)
[2023-09-21 16:40] LABS: SARS-CoV-2, RNA, NAAT NEGATIVE SARS CoV-2 (NEGATIVE)
[2023-09-21 16:44] LABS: INFLUENZA TYPE A Negative For Type A (NEGATIVE); INFLUENZA TYPE B Negative For Type B (NEGATIVE)
[2023-09-21 18:14] LABS: INR 1.33 (0.85-1.15); PROTHROMBIN TIME 15.1 SEC (9.6-11.6)
[2023-09-21 18:15] LABS: PARTIAL THROMBOPLASTIN TIME 34.5 SEC (26.3-35.5)
[2023-09-21] MEDS: IPRATROPIUM/ALBUTEROL SULFATE 3 ML SOLUTION IH SCH (19:19)
[2023-09-21] MEDS ORDERED: BUDESONIDE 3 MG CAP.ER.24H PO ONE (19:28)
[2023-09-21] MEDS: DEXAMETHASONE SOD PHOSPHATE 4 MG/ML 1ML VIAL IVP ONE (20:13)
[2023-09-21] MEDS: ENOXAPARIN SODIUM 30 MG/0.3 ML SQ ONE (20:14)
[2023-09-21] MEDS: ATORVASTATIN 40 MG TABLET PO SCH (20:14)
[2023-09-21] MEDS: SERTRALINE HCL 50 MG TABLET PO SCH (20:14)
[2023-09-21] MEDS: DEXAMETHASONE SOD PHOSPHATE 10MG/ML 1ML VIAL IVP ONE (20:15)
[2023-09-21] MEDS: SODIUM BICARBONATE 650 MG TAB PO SCH (20:19)
[2023-09-21] MEDS: GABAPENTIN 100 MG CAPSULE PO SCH (20:19)
[2023-09-21] MEDS: FAMOTIDINE 20MG TAB PO SCH (20:35)
[2023-09-22] VITALS (96 sets, daily range): BP systolic 85–143; BP diastolic 22–76; PULSE 64–88; RESP 10–25; TEMP 97.9; O2SAT 95–97
[2023-09-22] MEDS: ONDANSETRON 4MG INJ IVP PRN (00:32)
[2023-09-22 04:13] LABS: ABG HCO3 12.7 mmol/L (21.0-28.0); ABG OXYGEN SATURATION 95.6 % (95.0-99.0); ABG PCO2 27 mmHg (32-45); ABG PH 7.294 (7.35-7.450); VENT MODE, BG NC (ROOM AIR)
[2023-09-22] MEDS: LORAZEPAM 2 MG/ML 1 ML VIAL IVP ONE (05:26)
[2023-09-22 06:54] LABS: CREATININE 3.4 mg/dL (0.5-1.5); MAGNESIUM 2.2 mg/dL (1.80-2.40); PHOSPHORUS 6.3 mg/dL (2.5-4.9); POTASSIUM 4.9 mmol/L (3.5-5.1); THYROID STIMULATING HORMONE 1.65 uIU/mL (0.36-3.74)
[2023-09-22] MEDS: INSULIN REGULAR 100 UNIT in 0.9%NACL 100ML IV SCH (07:26)
[2023-09-22] MEDS ORDERED: D5W-1/2 NS/20MEQ KCL 1,000 ML IV SCH (07:30)
[2023-09-22] MEDS ORDERED: 0.9%NACL 1000ML 1,000 ML IV SCH (07:30)
[2023-09-22 08:42] LABS: BASOPHILS # (AUTO) 0.08 K/uL (0.00-0.20); BASOPHILS % (AUTO) 0.7 % (0.0-5.0); EOSINOPHILS # (AUTO) 5.02 K/uL (0.00-0.70); HEMATOCRIT 35.6 % (36-48); IMMATURE GRANULOCYTE ABSOLUTE 0.08 K/uL (0-1); LYMPHOCYTES # (AUTO) 2.2 K/uL (1.0-4.8); LYMPHOCYTES % (AUTO) 19.6 % (21.0-51.0); MEAN CORPUSCULAR HEMOGLOBIN 31.3 pg (27.0-33.0); MEAN CORPUSCULAR HGB CONC 30.9 g/dL (32.0-36.0); MEAN CORPUSCULAR VOLUME 101.4 fL (79-99); MONOCYTES # (AUTO) 0.3 K/uL (0.1-1.0); MONOCYTES % (AUTO) 2.5 % (3.0-13.0); NEUTROPHILS # (AUTO) 3.7 K/uL (1.8-7.7); NEUTROPHILS % (AUTO) 32.5 % (40.0-77.0); PLATELET COUNT (AUTO) 182 K/uL (130-400); RED BLOOD CELL COUNT(AUTO) 3.51 MIL/uL (4.00-5.50); RED CELL DISTRIBUTION WIDTH 17.2 % (11.0-15.5); WHITE BLOOD COUNT (AUTO) 11.4 K/uL (4.8-10.8)
[2023-09-22] MEDS ORDERED: BUDESONIDE 3 MG CAP.ER.24H PO SCH (09:00)
[2023-09-22] MEDS ORDERED: ENOXAPARIN SODIUM 30 MG/0.3 ML SQ SCH (09:00)
[2023-09-22] MEDS: SODIUM BICARB 50MEQ 50ML VIAL IV ONE (09:01)
[2023-09-22 09:59] LABS: BAND NEUTROPHILS % (MANUAL) 8 % (0-2); LYMPHOCYTES % (MANUAL) 34 % (22-44); MAN.DIFF COMMENT-IMPRESSION MANUAL DIFFERENTIAL; MONOCYTES % (MANUAL) 2 % (2-9); PLATELET MORPHOLOGY COMMENT ADEQUATE; SEGMENTED NEUTROPHILS % 56 % (40-70); TOTAL CELLS COUNTED 100
[2023-09-22] MEDS: DEXMEDETOMIDINE 400MCG/NS100ML IV ONE (10:01)
[2023-09-22 10:03] LABS: WBC MORPHOLOGY VACUOLATION 1+
[2023-09-22 10:27] LABS: CREATININE 3.9 mg/dL (0.5-1.5); MAGNESIUM 2.2 mg/dL (1.80-2.40); POTASSIUM 3.3 mmol/L (3.5-5.1)
[2023-09-22] MEDS: PANTOPRAZOLE 40 MG TAB DR PO SCH (10:38)
[2023-09-22] MEDS: Vitamin B Complex/Vit C/Folic Acid PO SCH (10:38)
[2023-09-22] MEDS: ENOXAPARIN SODIUM 30 MG/0.3 ML SQ SCH (10:39)
[2023-09-22] MEDS: 0.9%NACL 1000ML 909 ML IV ONE (10:40)
[2023-09-22 11:09] LABS: ABG BASE EXCESS -3.2 mmol/L (-2.0-3.0); ABG HCO3 21.3 mmol/L (21.0-28.0); ABG OXYGEN SATURATION 92.9 % (95.0-99.0); ABG PCO2 36 mmHg (32-45); ABG PH 7.387 (7.35-7.450); CARBON MONOXIDE 0.7; PO2, ARTERIAL BG 70.8 mmHg (83.0-108.0); VENT MODE, BG 2LNC (ROOM AIR)
[2023-09-22] MEDS ORDERED: METOPROLOL TARTRATE 1 MG/ML 5ML VIAL IV ONE (12:00)
[2023-09-22] MEDS: INSULIN GLARGINE 100 UNITS/ML 10 ML VIAL SQ ONE (12:42)
[2023-09-22] MEDS: MIDODRINE HCL 5 MG TABLET PO SCH (14:51)
[2023-09-22] MEDS ORDERED: IOHEXOL 350 MG/ML 100ML INFUS..BTL IV ONE (15:24)
[2023-09-22 15:25] LABS: CREATININE 2.8 mg/dL (0.5-1.5)
[2023-09-22 15:26] LABS: POTASSIUM 2.9 mmol/L (3.5-5.1)
[2023-09-22] MEDS: POTASSIUM CHLORIDE 20MEQ/100ML 100 ML IV ONE (16:04)
[2023-09-22] MEDS: MAGNESIUM 2GM PREMIX 50ML 50 ML IV SCH (16:23)
[2023-09-22 18:27] LABS: POTASSIUM 3.7 mmol/L (3.5-5.1)
[2023-09-22] MEDS: INSULIN HUMULIN R 100 UNIT/ML 3ML SQ SCH (21:00)
[2023-09-22] MEDS: INSULIN GLARGINE 100 UNITS/ML 10 ML VIAL SQ SCH (21:00)
[2023-09-23] VITALS (85 sets, daily range): BP systolic 100–156; BP diastolic 37–75; PULSE 70–83; RESP 10–20; TEMP 97.9–98.2; O2SAT 94–99
[2023-09-23 01:37] LABS: CREATININE 3.2 mg/dL (0.5-1.5); MAGNESIUM 2.4 mg/dL (1.80-2.40); POTASSIUM 3.9 mmol/L (3.5-5.1)
[2023-09-23 02:29] LABS: BASOPHILS # (AUTO) 0.04 K/uL (0.00-0.20); BASOPHILS % (AUTO) 0.2 % (0.0-5.0); EOSINOPHILS # (AUTO) 0.01 K/uL (0.00-0.70); EOSINOPHILS % (AUTO) 0.1 % (0.0-8.0); HEMATOCRIT 31.6 % (36-48); IMMATURE GRANULOCYTE ABSOLUTE 0.08 K/uL (0-1); LYMPHOCYTES # (AUTO) 1.5 K/uL (1.0-4.8); LYMPHOCYTES % (AUTO) 8.4 % (21.0-51.0); MEAN CORPUSCULAR HEMOGLOBIN 31.3 pg (27.0-33.0); MEAN CORPUSCULAR HGB CONC 32.6 g/dL (32.0-36.0); MONOCYTES # (AUTO) 1.7 K/uL (0.1-1.0); NEUTROPHILS % (AUTO) 80.8 % (40.0-77.0); PLATELET COUNT (AUTO) 179 K/uL (130-400); RED BLOOD CELL COUNT(AUTO) 3.29 MIL/uL (4.00-5.50); RED CELL DISTRIBUTION WIDTH 17.3 % (11.0-15.5); WHITE BLOOD COUNT (AUTO) 17.3 K/uL (4.8-10.8)
[2023-09-23 02:44] LABS: ALBUMIN 2.7 g/dL (3.5-5.0); BILIRUBIN,TOTAL 1.3 mg/dL (0.2-1.0); TOTAL PROTEIN, SERUM 7.2 g/dL (6.0-8.3)
[2023-09-23 10:13] LABS: HEPATITIS B CORE AB TOTAL Non-Reactive (Nonreactive); HEPATITIS B SURFACE ANTIBODY Negative (Reactive); HEPATITIS B SURFACE ANTIGEN Non-Reactive (Nonreactive)
[2023-09-23] MEDS: METRONIDAZOLE 500 MG TABLET PO SCH (13:06)
[2023-09-23] MEDS ORDERED: VANCOMYCIN KIT 1 GM/250 ML IV.KIT IV SCH (14:30)
[2023-09-23] MEDS: VANCOMYCIN KIT 1 GM/250 ML IV.KIT IV SCH (17:56)
[2023-09-24] VITALS (24 sets, daily range): BP systolic 98–132; BP diastolic 47–66; PULSE 66–83; RESP 9–19; O2SAT 93–100
[2023-09-24 05:06] LABS: HEMATOCRIT 32.7 % (36-48); MEAN CORPUSCULAR HEMOGLOBIN 30.8 pg (27.0-33.0); MEAN CORPUSCULAR HGB CONC 31.5 g/dL (32.0-36.0); MEAN CORPUSCULAR VOLUME 97.9 fL (79-99); PLATELET COUNT (AUTO) 153 K/uL (130-400); RED BLOOD CELL COUNT(AUTO) 3.34 MIL/uL (4.00-5.50); RED CELL DISTRIBUTION WIDTH 17.6 % (11.0-15.5); WHITE BLOOD COUNT (AUTO) 11.6 K/uL (4.8-10.8)
[2023-09-24 05:35] LABS: ALBUMIN 2.5 g/dL (3.5-5.0); BILIRUBIN,TOTAL 1.1 mg/dL (0.2-1.0); CREATININE 3.1 mg/dL (0.5-1.5); MAGNESIUM 2.2 mg/dL (1.80-2.40); PHOSPHORUS 3.5 mg/dL (2.5-4.9); POTASSIUM 4.1 mmol/L (3.5-5.1); TOTAL PROTEIN, SERUM 7.2 g/dL (6.0-8.3)
[2023-09-24 06:15] LABS: BAND NEUTROPHILS % (MANUAL) 1 % (0-2); EOSINOPHILS % (MANUAL) 1 % (1-6); LYMPHOCYTES % (MANUAL) 13 % (22-44); MONOCYTES % (MANUAL) 10 % (2-9); SEGMENTED NEUTROPHILS % 75 % (40-70); TOTAL CELLS COUNTED 100
[2023-09-24 06:16] LABS: MAN.DIFF COMMENT-IMPRESSION MANUAL DIFFERENTIAL; PLATELET MORPHOLOGY COMMENT ADEQUATE
[2023-09-24 10:33] LABS: INR 1.13 (0.85-1.15)
[2023-09-24] MEDS: HEPARIN 5,000 UNIT VIAL SQ SCH (21:07)
[2023-09-25] VITALS (28 sets, daily range): BP systolic 127–177; BP diastolic 58–98; PULSE 55–89; RESP 15–20; TEMP 97.6; O2SAT 98–100
[2023-09-25 05:46] LABS: HEMATOCRIT 35.1 % (36-48); IMMATURE GRANULOCYTE ABSOLUTE 0.05 K/uL (0-1); LYMPHOCYTES # (AUTO) 1.7 K/uL (1.0-4.8); LYMPHOCYTES % (AUTO) 16.5 % (21.0-51.0); MEAN CORPUSCULAR HEMOGLOBIN 30.9 pg (27.0-33.0); MEAN CORPUSCULAR HGB CONC 31.9 g/dL (32.0-36.0); MEAN CORPUSCULAR VOLUME 96.7 fL (79-99); MONOCYTES # (AUTO) 1.1 K/uL (0.1-1.0); MONOCYTES % (AUTO) 10.9 % (3.0-13.0); NEUTROPHILS # (AUTO) 7.1 K/uL (1.8-7.7); NEUTROPHILS % (AUTO) 70.1 % (40.0-77.0); PLATELET COUNT (AUTO) 168 K/uL (130-400); RED BLOOD CELL COUNT(AUTO) 3.63 MIL/uL (4.00-5.50); RED CELL DISTRIBUTION WIDTH 17.6 % (11.0-15.5); WHITE BLOOD COUNT (AUTO) 10.1 K/uL (4.8-10.8)
[2023-09-25 06:08] LABS: ALBUMIN 2.7 g/dL (3.5-5.0); BILIRUBIN,TOTAL 1.1 mg/dL (0.2-1.0); CREATININE 3.9 mg/dL (0.5-1.5); MAGNESIUM 2.3 mg/dL (1.80-2.40); PHOSPHORUS 3.5 mg/dL (2.5-4.9); POTASSIUM 3.4 mmol/L (3.5-5.1); TOTAL PROTEIN, SERUM 7.9 g/dL (6.0-8.3)
[2023-09-25] MEDS: GLUCAGON 1MG KIT 1 MG ML ONE (06:23)
[2023-09-25] MEDS: DEXTROSE 50%-WATER 50 ML DISP.SYRIN IV ONE (06:23)
[2023-09-25] MEDS: POTASSIUM CHLORIDE 10MEQ/100ML 100 ML IV PRN (07:35)
[2023-09-25] MEDS: INSULIN HUMULIN R 100 UNIT/ML 3ML SQ SCH (11:30)
[2023-09-25] MEDS ORDERED: INSULIN GLARGINE 100 UNITS/ML 10 ML VIAL SQ SCH (21:00)
[2023-09-26] VITALS (12 sets, daily range): BP systolic 126–152; BP diastolic 58–71; PULSE 66–77; RESP 16–20; O2SAT 96–99
[2023-09-26 04:57] LABS: BASOPHILS # (AUTO) 0.09 K/uL (0.00-0.20); BASOPHILS % (AUTO) 1.2 % (0.0-5.0); EOSINOPHILS # (AUTO) 0.08 K/uL (0.00-0.70); HEMATOCRIT 32.4 % (36-48); IMMATURE GRANULOCYTE ABSOLUTE 0.03 K/uL (0-1); LYMPHOCYTES # (AUTO) 1.1 K/uL (1.0-4.8); LYMPHOCYTES % (AUTO) 14.1 % (21.0-51.0); MEAN CORPUSCULAR HEMOGLOBIN 31.1 pg (27.0-33.0); MEAN CORPUSCULAR HGB CONC 31.8 g/dL (32.0-36.0); MEAN CORPUSCULAR VOLUME 97.9 fL (79-99); MONOCYTES # (AUTO) 0.7 K/uL (0.1-1.0); MONOCYTES % (AUTO) 9.5 % (3.0-13.0); NEUTROPHILS # (AUTO) 5.8 K/uL (1.8-7.7); NEUTROPHILS % (AUTO) 73.8 % (40.0-77.0); PLATELET COUNT (AUTO) 132 K/uL (130-400); RED BLOOD CELL COUNT(AUTO) 3.31 MIL/uL (4.00-5.50); RED CELL DISTRIBUTION WIDTH 17.2 % (11.0-15.5); WHITE BLOOD COUNT (AUTO) 7.8 K/uL (4.8-10.8)
[2023-09-26 05:41] LABS: ALBUMIN 2.6 g/dL (3.5-5.0); BILIRUBIN,TOTAL 1.1 mg/dL (0.2-1.0); CREATININE 3.8 mg/dL (0.5-1.5); POTASSIUM 4.2 mmol/L (3.5-5.1); TOTAL PROTEIN, SERUM 7.3 g/dL (6.0-8.3)
[2023-09-26] MEDS: INSULIN GLARGINE 100 UNITS/ML 10 ML VIAL SQ SCH ×2 (11:01→22:07)
[2023-09-27] VITALS (24 sets, daily range): BP systolic 102–159; BP diastolic 56–80; PULSE 66–81; RESP 16–20; TEMP 97.9–98.1; O2SAT 96–97
[2023-09-27 05:58] LABS: MEAN CORPUSCULAR HEMOGLOBIN 31.3 pg (27.0-33.0); MEAN CORPUSCULAR HGB CONC 32.5 g/dL (32.0-36.0); MEAN CORPUSCULAR VOLUME 96.4 fL (79-99); NUCLEATED RED BLOOD CELLS 0.3 % (0.0-0.19); PLATELET COUNT (AUTO) 176 K/uL (130-400); RED BLOOD CELL COUNT(AUTO) 3.32 MIL/uL (4.00-5.50); RED CELL DISTRIBUTION WIDTH 17.4 % (11.0-15.5); WHITE BLOOD COUNT (AUTO) 9.2 K/uL (4.8-10.8)
[2023-09-27 06:15] LABS: CREATININE 4.8 mg/dL (0.5-1.5); MAGNESIUM 2.2 mg/dL (1.80-2.40); PHOSPHORUS 4.2 mg/dL (2.5-4.9); POTASSIUM 3.6 mmol/L (3.5-5.1)
[2023-09-27 08:33] LABS: BAND NEUTROPHILS % (MANUAL) 2 % (0-2); BASOPHILS % (MANUAL) 1 % (0-2); EOSINOPHILS % (MANUAL) 2 % (1-6); LYMPHOCYTES % (MANUAL) 22 % (22-44); MONOCYTES % (MANUAL) 10 % (2-9); SEGMENTED NEUTROPHILS % 63 % (40-70); TOTAL CELLS COUNTED 100
[2023-09-27 08:34] LABS: MAN.DIFF COMMENT-IMPRESSION MANUAL DIFFERENTIAL; WBC MORPHOLOGY NORMAL
[2023-09-27 08:35] LABS: PLATELET MORPHOLOGY COMMENT ADEQUATE
[2023-09-28] VITALS (10 sets, daily range): BP systolic 117–132; BP diastolic 55–69; PULSE 64–72; RESP 16–20; O2SAT 97–99
[2023-09-28 05:54] LABS: BASOPHILS # (AUTO) 0.11 K/uL (0.00-0.20); BASOPHILS % (AUTO) 1.2 % (0.0-5.0); EOSINOPHILS # (AUTO) 0.17 K/uL (0.00-0.70); EOSINOPHILS % (AUTO) 1.9 % (0.0-8.0); HEMATOCRIT 34.2 % (36-48); IMMATURE GRANULOCYTE ABSOLUTE 0.03 K/uL (0-1); LYMPHOCYTES # (AUTO) 1.3 K/uL (1.0-4.8); LYMPHOCYTES % (AUTO) 13.7 % (21.0-51.0); MEAN CORPUSCULAR HGB CONC 31.3 g/dL (32.0-36.0); MEAN CORPUSCULAR VOLUME 99.1 fL (79-99); MONOCYTES # (AUTO) 1.2 K/uL (0.1-1.0); NEUTROPHILS # (AUTO) 6.4 K/uL (1.8-7.7); NEUTROPHILS % (AUTO) 69.9 % (40.0-77.0); PLATELET COUNT (AUTO) 202 K/uL (130-400); RED BLOOD CELL COUNT(AUTO) 3.45 MIL/uL (4.00-5.50); RED CELL DISTRIBUTION WIDTH 17.4 % (11.0-15.5); WHITE BLOOD COUNT (AUTO) 9.1 K/uL (4.8-10.8)
[2023-09-28 06:12] LABS: ALBUMIN 2.5 g/dL (3.5-5.0); BILIRUBIN,TOTAL 0.9 mg/dL (0.2-1.0); PHOSPHORUS 3.7 mg/dL (2.5-4.9); POTASSIUM 3.9 mmol/L (3.5-5.1); TOTAL PROTEIN, SERUM 7.4 g/dL (6.0-8.3)
[2023-09-28] MEDS: INSULIN GLARGINE 100 UNITS/ML 10 ML VIAL SQ SCH (10:35)
[2023-09-29] VITALS (11 sets, daily range): BP systolic 120–153; BP diastolic 57–73; PULSE 63–75; RESP 17–19; O2SAT 99
[2023-09-29 07:11] LABS: BASOPHILS # (AUTO) 0.11 K/uL (0.00-0.20); BASOPHILS % (AUTO) 1.1 % (0.0-5.0); EOSINOPHILS # (AUTO) 0.19 K/uL (0.00-0.70); EOSINOPHILS % (AUTO) 1.8 % (0.0-8.0); HEMATOCRIT 34.9 % (36-48); IMMATURE GRANULOCYTE ABSOLUTE 0.07 K/uL (0-1); LYMPHOCYTES # (AUTO) 1.7 K/uL (1.0-4.8); LYMPHOCYTES % (AUTO) 16.3 % (21.0-51.0); MEAN CORPUSCULAR HEMOGLOBIN 31.2 pg (27.0-33.0); MEAN CORPUSCULAR HGB CONC 31.2 g/dL (32.0-36.0); MONOCYTES # (AUTO) 1.3 K/uL (0.1-1.0); NEUTROPHILS # (AUTO) 7.1 K/uL (1.8-7.7); NEUTROPHILS % (AUTO) 68.1 % (40.0-77.0); PLATELET COUNT (AUTO) 207 K/uL (130-400); RED BLOOD CELL COUNT(AUTO) 3.49 MIL/uL (4.00-5.50); RED CELL DISTRIBUTION WIDTH 17.4 % (11.0-15.5); WHITE BLOOD COUNT (AUTO) 10.4 K/uL (4.8-10.8)
[2023-09-29 07:51] LABS: HEMOGLOBIN A1C 8.9 % (4.0-6.0)
[2023-09-29] MEDS ORDERED: 0.9%NACL 50ML IV SCH (08:00)
[2023-09-29 08:24] LABS: ALBUMIN 2.7 g/dL (3.5-5.0); CREATININE 5.4 mg/dL (0.5-1.5); MAGNESIUM 2.1 mg/dL (1.80-2.40); PHOSPHORUS 4.9 mg/dL (2.5-4.9); TOTAL PROTEIN, SERUM 7.8 g/dL (6.0-8.3)
[2023-09-29] MEDS: ZOSYN 3.375GM +NS 50ML IVPB SCH (09:29)
[2023-09-29] MEDS: INSULIN GLARGINE 100 UNITS/ML 10 ML VIAL SQ ONE (09:32)
[2023-09-30] VITALS (22 sets, daily range): BP systolic 89–139; BP diastolic 38–110; PULSE 67–77; RESP 16–19; TEMP 98–98.1; O2SAT 99
[2023-09-30 06:12] LABS: BASOPHILS # (AUTO) 0.13 K/uL (0.00-0.20); BASOPHILS % (AUTO) 1.5 % (0.0-5.0); EOSINOPHILS # (AUTO) 0.11 K/uL (0.00-0.70); EOSINOPHILS % (AUTO) 1.2 % (0.0-8.0); HEMATOCRIT 34.7 % (36-48); IMMATURE GRANULOCYTE ABSOLUTE 0.07 K/uL (0-1); LYMPHOCYTES # (AUTO) 1.1 K/uL (1.0-4.8); LYMPHOCYTES % (AUTO) 12.7 % (21.0-51.0); MEAN CORPUSCULAR HEMOGLOBIN 31.2 pg (27.0-33.0); MEAN CORPUSCULAR HGB CONC 31.4 g/dL (32.0-36.0); MEAN CORPUSCULAR VOLUME 99.4 fL (79-99); MONOCYTES # (AUTO) 1.2 K/uL (0.1-1.0); MONOCYTES % (AUTO) 13.5 % (3.0-13.0); NEUTROPHILS # (AUTO) 6.2 K/uL (1.8-7.7); NEUTROPHILS % (AUTO) 70.3 % (40.0-77.0); PLATELET COUNT (AUTO) 187 K/uL (130-400); RED BLOOD CELL COUNT(AUTO) 3.49 MIL/uL (4.00-5.50); RED CELL DISTRIBUTION WIDTH 17.5 % (11.0-15.5); WHITE BLOOD COUNT (AUTO) 8.8 K/uL (4.8-10.8)
[2023-09-30 06:40] LABS: ALBUMIN 2.6 g/dL (3.5-5.0); CREATININE 6.3 mg/dL (0.5-1.5); MAGNESIUM 2.3 mg/dL (1.80-2.40); POTASSIUM 5.1 mmol/L (3.5-5.1); TOTAL PROTEIN, SERUM 7.2 g/dL (6.0-8.3)
[2023-09-30] MEDS: INSULIN GLARGINE 100 UNITS/ML 10 ML VIAL SQ SCH (13:51)
== END 2023-09-30 17:10 | DRG 871 ==
LOC: EDH 09:01 → EDHIP 14:07 → 2CH 16:22 → 3AH 09-24 18:15
PROVIDERS: ADMIT Internal Medicine Critical Care Medicine; ATTEND Internal Medicine Critical Care Medicine
PROC: 02HV33Z Insertion of Infusion Device into Superior Vena Cava, Percutaneous Approach (ICD-10-PCS; principal; 2023-09-22)
PROC: B548ZZA Ultrasonography of Superior Vena Cava, Guidance (ICD-10-PCS; 2023-09-22)
PROC: 5A1D70Z Performance of Urinary Filtration, Intermittent, Less than 6 Hours Per Day (ICD-10-PCS; 2023-09-22)
PROC: 5A1D70Z Performance of Urinary Filtration, Intermittent, Less than 6 Hours Per Day (ICD-10-PCS; 2023-09-23)
PROC: 5A1D70Z Performance of Urinary Filtration, Intermittent, Less than 6 Hours Per Day (ICD-10-PCS; 2023-09-25)
PROC: 5A1D70Z Performance of Urinary Filtration, Intermittent, Less than 6 Hours Per Day (ICD-10-PCS; 2023-09-27)
PROC: 5A1D70Z Performance of Urinary Filtration, Intermittent, Less than 6 Hours Per Day (ICD-10-PCS; 2023-09-30)
DX: A41.9 Sepsis, unspecified organism (principal); E11.10 Type 2 diabetes mellitus with ketoacidosis without coma; N18.6 End stage renal disease; G93.41 Metabolic encephalopathy; J96.01 Acute respiratory failure with hypoxia; R65.21 Severe sepsis with septic shock; I13.2 Hypertensive heart and chronic kidney disease with heart failure and with stage 5 chronic kidney disease, or end stage renal disease; J98.11 Atelectasis; D64.9 Anemia, unspecified; E11.22 Type 2 diabetes mellitus with diabetic chronic kidney disease; E11.649 Type 2 diabetes mellitus with hypoglycemia without coma; E77.8 Other disorders of glycoprotein metabolism; E78.00 Pure hypercholesterolemia, unspecified; E87.8 Other disorders of electrolyte and fluid balance, not elsewhere classified; F32.A Depression, unspecified; F41.9 Anxiety disorder, unspecified; I07.1 Rheumatic tricuspid insufficiency; I27.20 Pulmonary hypertension, unspecified; I50.9 Heart failure, unspecified; K21.9 Gastro-esophageal reflux disease without esophagitis; K76.0 Fatty (change of) liver, not elsewhere classified; R62.7 Adult failure to thrive; Z79.899 Other long term (current) drug therapy; Z99.2 Dependence on renal dialysis; Z86.16 Personal history of COVID-19; Z87.01 Personal history of pneumonia (recurrent); Z91.119 Patient's noncompliance with dietary regimen due to unspecified reason
CPT/HCPCS: 36415; 36556; 36600; 70450; 71045; 71270; 80048; 80053; 80202; 82010; 82140; 82435; 82533; 82803; 82947; 82948; 83036; 83605; 83630; 83690; 83735; 84100; 84132; 84145; 84295; 84443; 84484; 85018; 85025; 85378; 85610; 85730; 86704; 86706; 87040; 87046; 87071; 87077; 87186; 87205; 87324; 87340; 87635; 87804; 90935; 92610; 93005; 93306; 93970; 94640; 94664; 96365; 96375; G0378; J1100; J1170; J1610; J1644; J1650; J1815; J2060; J2405; J2543; J3370; J3475; J3480; J3490; J7070; P9045; Q9967

== ENCOUNTER 2023-11-13 08:43 | Emergency (ER) | payer OTHER, MEDICARE ==
[~2023-11-13] VITALS: Ht 152.4 cm; Wt 62.6 kg
[~2023-11-13 08:43] MED LIST changes: -ALBU2.5V2 IH; -ATOR40TA69 PO; -CARV3.12 PO; -CEFU500T67 PO; -FOLI0.8T22 PO; -FURO40TA7 PO; -HYDR50TA37 PO; -NEBU-298 MC; +NEBU-307 MC; -PRED20TA3 PO; -SERT-439 PO
[2023-11-13 09:06] LABS: BASOPHILS # (AUTO) 0.14 K/uL (0.00-0.20); BASOPHILS % (AUTO) 1.5 % (0.0-5.0); EOSINOPHILS # (AUTO) 0.18 K/uL (0.00-0.70); HEMATOCRIT 35.8 % (36-48); IMMATURE GRANULOCYTE ABSOLUTE 0.04 K/uL (0-1); LYMPHOCYTES # (AUTO) 1.6 K/uL (1.0-4.8); LYMPHOCYTES % (AUTO) 17.3 % (21.0-51.0); MEAN CORPUSCULAR HEMOGLOBIN 31.7 pg (27.0-33.0); MEAN CORPUSCULAR HGB CONC 33.5 g/dL (32.0-36.0); MEAN CORPUSCULAR VOLUME 94.7 fL (79-99); MONOCYTES # (AUTO) 1.4 K/uL (0.1-1.0); MONOCYTES % (AUTO) 15.8 % (3.0-13.0); NEUTROPHILS # (AUTO) 5.7 K/uL (1.8-7.7); PLATELET COUNT (AUTO) 208 K/uL (130-400); RED BLOOD CELL COUNT(AUTO) 3.78 MIL/uL (4.00-5.50); RED CELL DISTRIBUTION WIDTH 14.6 % (11.0-15.5); WHITE BLOOD COUNT (AUTO) 9.1 K/uL (4.8-10.8)
[2023-11-13 09:14] LABS: CREATININE 3.5 mg/dL (0.5-1.0); POTASSIUM 4.6 mmol/L (3.5-5.1)
[2023-11-13] MEDS: LORAZEPAM 2 MG/ML 1 ML VIAL IVP ONE (09:26)
[2023-11-13 09:31] VITALS: BP 149/60; PULSE 81; RESP 22; O2SAT 100
[2023-11-13 09:47] LABS: B-TYPE NATRIURETIC PEPTIDE 3600 pg/mL (0-100)
== END 2023-11-13 13:35 | disposition home or self-care (01) ==
LOC: EDH 08:43
DX: E11.22 Type 2 diabetes mellitus with diabetic chronic kidney disease (principal); I12.0 Hypertensive chronic kidney disease with stage 5 chronic kidney disease or end stage renal disease; N18.6 End stage renal disease; F41.9 Anxiety disorder, unspecified; E78.00 Pure hypercholesterolemia, unspecified; Z79.899 Other long term (current) drug therapy; Z90.49 Acquired absence of other specified parts of digestive tract; Z98.890 Other specified postprocedural states
CPT/HCPCS: 99285; 96374; 71045; 84484; 80048; 83880; 85025; 36415; 93005; J2060

== ENCOUNTER 2023-12-11 05:25 | Emergency (ER) | payer BC, OTHER ==
[~2023-12-11] VITALS: Ht 152.4 cm; Wt 63.0 kg
[~2023-12-11 05:25] MED LIST changes: +AMOX-426 PO; +ATOR40TA71 PO; +AZIT250T PO; +CARV3.12 PO; -CHLO25TA3 PO; +CLON0.1T PO; +DICY20TA2 PO; -FAMO-136 PO; +FLUT1BLS3 PUFF; +FOLI0.8T22 PO; +HUMALOG SQ; +HYDR-3420 PO; +INSLAN SQ; +MIDO10TA PO; -NEBU-307 MC; +SUCR500T PO
[2023-12-11 07:43] LABS: BASOPHILS # (AUTO) 0.12 K/uL (0.00-0.20); BASOPHILS % (AUTO) 1.5 % (0.0-5.0); EOSINOPHILS # (AUTO) 0.27 K/uL (0.00-0.70); EOSINOPHILS % (AUTO) 3.4 % (0.0-8.0); HEMATOCRIT 33.4 % (36-48); IMMATURE GRANULOCYTE ABSOLUTE 0.03 K/uL (0-1); LYMPHOCYTES # (AUTO) 1.5 K/uL (1.0-4.8); LYMPHOCYTES % (AUTO) 19.2 % (21.0-51.0); MEAN CORPUSCULAR HEMOGLOBIN 31.7 pg (27.0-33.0); MEAN CORPUSCULAR HGB CONC 33.5 g/dL (32.0-36.0); MEAN CORPUSCULAR VOLUME 94.6 fL (79-99); MONOCYTES # (AUTO) 1.3 K/uL (0.1-1.0); MONOCYTES % (AUTO) 16.8 % (3.0-13.0); NEUTROPHILS # (AUTO) 4.6 K/uL (1.8-7.7); NEUTROPHILS % (AUTO) 58.7 % (40.0-77.0); PLATELET COUNT (AUTO) 193 K/uL (130-400); RED BLOOD CELL COUNT(AUTO) 3.53 MIL/uL (4.00-5.50); RED CELL DISTRIBUTION WIDTH 15.8 % (11.0-15.5); WHITE BLOOD COUNT (AUTO) 7.9 K/uL (4.8-10.8)
[2023-12-11] MEDS: DEXTROSE 50%-WATER 50 ML DISP.SYRIN IV ONE (07:43)
[2023-12-11 07:50] LABS: CREATININE 5.1 mg/dL (0.5-1.0); POTASSIUM 3.6 mmol/L (3.5-5.1)
[2023-12-11 07:55] LABS: ALBUMIN 3.2 g/dL (3.5-5.0); BILIRUBIN,TOTAL 1.1 mg/dL (0.2-1.0); TOTAL PROTEIN, SERUM 8.8 g/dL (6.0-8.3)
[2023-12-11 08:20] VITALS: BP 142/62; PULSE 68; RESP 14; O2SAT 98
== END 2023-12-11 10:10 | disposition home or self-care (01) ==
LOC: EDH 05:25
DX: E11.649 Type 2 diabetes mellitus with hypoglycemia without coma (principal); I12.0 Hypertensive chronic kidney disease with stage 5 chronic kidney disease or end stage renal disease; E11.22 Type 2 diabetes mellitus with diabetic chronic kidney disease; N18.6 End stage renal disease; Z79.899 Other long term (current) drug therapy; Z98.890 Other specified postprocedural states
CPT/HCPCS: 99284; 96365; 71045; 84484; 80053; 85025; 82948 ×2; 36415; 93005; J7070

== ENCOUNTER 2024-02-09 17:49 | Inpatient (IN) | payer OTHER, MEDICARE ==
[~2024-02-09] VITALS: Ht 160 cm; Wt 59.9 kg
[~2024-02-09 17:49] MED LIST changes: -AMOX-426 PO; -AZIT250T PO; -CARV3.12 PO; -CLON0.1T PO; +ESOM40CA66 PO; -FAMO20TA8 PO; -HUMALOG SQ; -HYDR-3420 PO; +HYDR-4060 PO; +HYDR50TA37 PO; -INSLAN SQ
[2024-02-09 18:34] LABS: BASOPHILS # (AUTO) 0.13 K/uL (0.00-0.20); BASOPHILS % (AUTO) 1.3 % (0.0-5.0); EOSINOPHILS # (AUTO) 0.14 K/uL (0.00-0.70); EOSINOPHILS % (AUTO) 1.4 % (0.0-8.0); HEMATOCRIT 31.8 % (36-48); IMMATURE GRANULOCYTE ABSOLUTE 0.03 K/uL (0-1); LYMPHOCYTES # (AUTO) 1.7 K/uL (1.0-4.8); LYMPHOCYTES % (AUTO) 16.5 % (21.0-51.0); MEAN CORPUSCULAR HEMOGLOBIN 31.6 pg (27.0-33.0); MEAN CORPUSCULAR HGB CONC 32.7 g/dL (32.0-36.0); MEAN CORPUSCULAR VOLUME 96.7 fL (79-99); MONOCYTES # (AUTO) 1.1 K/uL (0.1-1.0); MONOCYTES % (AUTO) 10.9 % (3.0-13.0); NEUTROPHILS # (AUTO) 6.9 K/uL (1.8-7.7); NEUTROPHILS % (AUTO) 69.6 % (40.0-77.0); PLATELET COUNT (AUTO) 181 K/uL (130-400); RED BLOOD CELL COUNT(AUTO) 3.29 MIL/uL (4.00-5.50); RED CELL DISTRIBUTION WIDTH 16.4 % (11.0-15.5)
[2024-02-09 18:35] LABS: SARS-CoV-2, RNA, NAAT NEGATIVE SARS CoV-2 (NEGATIVE)
[2024-02-09 18:39] LABS: ABG BASE EXCESS -0.7 mmol/L (-2.0-3.0); ABG HCO3 22.4 mmol/L (21.0-28.0); ABG OXYGEN SATURATION 98.7 % (95.0-99.0); ABG PCO2 32 mmHg (32-45); ABG PH 7.467 (7.35-7.450); CARBON MONOXIDE 0.9; DEVICE COMMENT N.C 3; HHb 1.3; PO2, ARTERIAL BG 118.8 mmHg (83.0-108.0); VENT MODE, BG RB RN STEPHEN (ROOM AIR)
[2024-02-09 18:41] LABS: INFLUENZA TYPE A Negative For Type A (NEGATIVE); INFLUENZA TYPE B Negative For Type B (NEGATIVE)
[2024-02-09 18:44] LABS: POTASSIUM 4.4 mmol/L (3.5-5.1)
[2024-02-09 18:56] LABS: B-TYPE NATRIURETIC PEPTIDE 3180 pg/mL (0-100)
[2024-02-09 18:58] LABS: INR 1.19 (0.85-1.15); PROTHROMBIN TIME 12.7 SEC (9.6-11.6)
[2024-02-09 18:59] LABS: PARTIAL THROMBOPLASTIN TIME 25.6 SEC (26.3-35.5)
[2024-02-09] MEDS ORDERED: ACETAMINOPHEN 650 MG SUPPOSITORY RC PRN (20:30)
[2024-02-09] MEDS ORDERED: HYDRALAZINE 20MG/ML VIAL IV PRN (20:30)
[2024-02-09] MEDS ORDERED: HYDROCODONE/ACETAMINOPHEN 5/325 MG TAB PO PRN (20:30)
[2024-02-09] MEDS ORDERED: LABETALOL 20MG SYG IV PRN (20:30)
[2024-02-09] MEDS: ALBUTEROL 0.083% 2.5 MG/3 ML INH IH PRN (20:42)
[2024-02-09 20:44] VITALS: PULSE 68; RESP 19; O2SAT 98
[2024-02-09] MEDS: HEPARIN 5,000 UNIT VIAL SQ SCH (20:56)
[2024-02-09] MEDS: INSULIN HUMULIN R 100 UNIT/ML 3ML SQ SCH (21:02)
[2024-02-09] MEDS ORDERED: CALCIUM CARB 500MG CHEW TAB PO PRN (21:30)
[2024-02-09 21:46] VITALS: PULSE 72; RESP 19
[2024-02-09] MEDS: ALPRAZOLAM 0.5 MG TABLET PO ONE (21:58)
[2024-02-09 22:00] VITALS: BP 75/39; PULSE 71; RESP 19
[2024-02-09 22:07] LABS: ALBUMIN 3.6 g/dL (3.5-5.0); BILIRUBIN,DIRECT 0.4 mg/dL (0.0-0.3); BILIRUBIN,TOTAL 1.3 mg/dL (0.2-1.0); TOTAL PROTEIN, SERUM 8.1 g/dL (6.0-8.3)
[2024-02-09 22:35] VITALS: O2SAT 94
[2024-02-09] MEDS ORDERED: ALBUMIN (HUMAN) 5% 500 ML IV SCH (23:00)
[2024-02-09] MEDS: ALBUMIN (HUMAN) 5% 500 ML IV ONE (23:10)
[2024-02-09] MEDS: MIDODRINE HCL 5 MG TABLET ONE (23:10)
[2024-02-09] MEDS: MIDODRINE HCL 5 MG TABLET PO ONE (23:12)
[2024-02-10] VITALS (60 sets, daily range): BP systolic 98–165; BP diastolic 25–119; PULSE 66–91; RESP 11–24; TEMP 97.8–97.9; O2SAT 94–99
[2024-02-10] MEDS: NOREPINEPHRIN 4MG/NS 250ML 250 ML IV ONE (01:03)
[2024-02-10 04:36] LABS: BASOPHILS # (AUTO) 0.11 K/uL (0.00-0.20); BASOPHILS % (AUTO) 0.7 % (0.0-5.0); EOSINOPHILS # (AUTO) 0.01 K/uL (0.00-0.70); EOSINOPHILS % (AUTO) 0.1 % (0.0-8.0); IMMATURE GRANULOCYTE ABSOLUTE 0.07 K/uL (0-1); LYMPHOCYTES # (AUTO) 0.6 K/uL (1.0-4.8); LYMPHOCYTES % (AUTO) 3.8 % (21.0-51.0); MEAN CORPUSCULAR HGB CONC 31.9 g/dL (32.0-36.0); MEAN CORPUSCULAR VOLUME 97.3 fL (79-99); MONOCYTES # (AUTO) 1.2 K/uL (0.1-1.0); MONOCYTES % (AUTO) 7.7 % (3.0-13.0); NEUTROPHILS # (AUTO) 13.3 K/uL (1.8-7.7); NEUTROPHILS % (AUTO) 87.2 % (40.0-77.0); PLATELET COUNT (AUTO) 213 K/uL (130-400); RED BLOOD CELL COUNT(AUTO) 3.29 MIL/uL (4.00-5.50); RED CELL DISTRIBUTION WIDTH 16.9 % (11.0-15.5); WHITE BLOOD COUNT (AUTO) 15.2 K/uL (4.8-10.8)
[2024-02-10 04:44] LABS: CREATININE 5.3 mg/dL (0.5-1.0); MAGNESIUM 2.2 mg/dL (1.80-2.40); PHOSPHORUS 4.5 mg/dL (2.5-4.9); POTASSIUM 4.3 mmol/L (3.5-5.1)
[2024-02-10] MEDS ORDERED: INSLAN SQ (05:14)
[2024-02-10] MEDS ORDERED: MIDO10TA PO (05:14)
[2024-02-10] MEDS ORDERED: HYDR50TA37 PO (05:14)
[2024-02-10] MEDS ORDERED: MELA10TA2 PO (05:14)
[2024-02-10] MEDS ORDERED: ATOR40TA69 PO (05:14)
[2024-02-10] MEDS ORDERED: ESOM40CA66 PO (05:14)
[2024-02-10] MEDS ORDERED: SERT-439 PO (05:14)
[2024-02-10] MEDS ORDERED: AMLO-257 PO (05:14)
[2024-02-10] MEDS ORDERED: LIDO1ADH82 TP (05:14)
[2024-02-10] MEDS ORDERED: SUCR500T PO (05:14)
[2024-02-10] MEDS ORDERED: FOLI0.4T6 PO (05:14)
[2024-02-10] MEDS ORDERED: TRAZ-185 PO (05:14)
[2024-02-10] MEDS ORDERED: PANT40TA54 PO (05:15)
[2024-02-10] MEDS ORDERED: FOLI0.8T43 PO (05:15)
[2024-02-10] MEDS ORDERED: CHOL2000 PO (05:15)
[2024-02-10] MEDS: MIDODRINE HCL 5 MG TABLET PO SCH (09:38)
[2024-02-10] MEDS: POLYETHYLENE GLYCOL 3350 17 GM POWD.PACK PO SCH (09:38)
[2024-02-10] MEDS: PANTOPRAZOLE 40 MG TAB DR PO SCH (09:38)
[2024-02-10] MEDS: ASCORBIC ACID 500 MG TAB PO SCH (09:39)
[2024-02-10] MEDS: NOREPINEPHRIN 4MG/NS 250ML 250 ML IV SCH (11:47)
[2024-02-10] MEDS: DOXYCYCLINE 100MG+NS 250ML 250 ML IV SCH (12:18)
[2024-02-10 13:09] LABS: ALBUMIN 3.8 g/dL (3.5-5.0); BILIRUBIN,TOTAL 1.3 mg/dL (0.2-1.0); CREATININE 2.7 mg/dL (0.5-1.0); POTASSIUM 3.1 mmol/L (3.5-5.1); TOTAL PROTEIN, SERUM 8.4 g/dL (6.0-8.3)
[2024-02-10] MEDS: ZOSYN 3.375GM +NS 50ML IV SCH (14:35)
[2024-02-10] MEDS: Sucroferric Oxyhydroxide (Velphoro) 1,000 MG PO SCH (16:30)
[2024-02-10] MEDS: HYDRALAZINE 25MG TABLET PO SCH (21:00)
[2024-02-10] MEDS: MELATONIN 5 MG TABLET PO SCH (21:00)
[2024-02-10] MEDS: PANTOPRAZOLE 40 MG/VIAL IVP SCH (21:29)
[2024-02-10] MEDS: ATORVASTATIN 40 MG TABLET PO SCH (21:30)
[2024-02-10] MEDS: INSULIN GLARGINE 100 UNITS/ML 10 ML VIAL SQ SCH (21:36)
[2024-02-10] MEDS: SODIUM CHLORIDE 3% FOR INHALATION 4 ML/AMP VIAL.NEB IH ONE (21:49)
[2024-02-11] VITALS (22 sets, daily range): BP systolic 103–166; BP diastolic 24–75; PULSE 64–79; RESP 12–22; O2SAT 96–99
[2024-02-11 00:46] LABS: HEPATITIS B SURFACE ANTIBODY Positive (Reactive); HEPATITIS B SURFACE ANTIGEN Non-Reactive (Nonreactive); HEPATITIS C ANTIBODY Non-Reactive (Nonreactive)
[2024-02-11 00:55] LABS: HEPATITIS B CORE AB TOTAL Non-Reactive (Nonreactive)
[2024-02-11] MEDS: HEPARIN 5,000 UNIT VIAL SQ SCH (01:29)
[2024-02-11 04:10] LABS: BASOPHILS # (AUTO) 0.11 K/uL (0.00-0.20); BASOPHILS % (AUTO) 1.2 % (0.0-5.0); EOSINOPHILS % (AUTO) 1.1 % (0.0-8.0); HEMATOCRIT 28.8 % (36-48); IMMATURE GRANULOCYTE ABSOLUTE 0.03 K/uL (0-1); LYMPHOCYTES # (AUTO) 1.2 K/uL (1.0-4.8); LYMPHOCYTES % (AUTO) 12.7 % (21.0-51.0); MEAN CORPUSCULAR HEMOGLOBIN 31.3 pg (27.0-33.0); MEAN CORPUSCULAR HGB CONC 31.6 g/dL (32.0-36.0); MONOCYTES # (AUTO) 1.2 K/uL (0.1-1.0); MONOCYTES % (AUTO) 13.3 % (3.0-13.0); NEUTROPHILS # (AUTO) 6.6 K/uL (1.8-7.7); NEUTROPHILS % (AUTO) 71.4 % (40.0-77.0); PLATELET COUNT (AUTO) 170 K/uL (130-400); RED BLOOD CELL COUNT(AUTO) 2.91 MIL/uL (4.00-5.50); RED CELL DISTRIBUTION WIDTH 17.1 % (11.0-15.5); WHITE BLOOD COUNT (AUTO) 9.3 K/uL (4.8-10.8)
[2024-02-11 04:24] LABS: BILIRUBIN,TOTAL 1.2 mg/dL (0.2-1.0); CREATININE 4.1 mg/dL (0.5-1.0); PHOSPHORUS 3.9 mg/dL (2.5-4.9); POTASSIUM 3.9 mmol/L (3.5-5.1); TOTAL PROTEIN, SERUM 7.2 g/dL (6.0-8.3)
[2024-02-11 04:26] LABS: HEMOGLOBIN A1C 7.9 % (4.0-6.0)
[2024-02-11] MEDS: Cholecalciferol (Vitamin D3) 50 MCG PO SCH (08:30)
[2024-02-11] MEDS ORDERED: PANTOPRAZOLE 40 MG TAB DR PO SCH (09:00)
[2024-02-11] MEDS: SERTRALINE HCL 50 MG TABLET PO SCH (09:53)
[2024-02-11] MEDS: AMLODIPINE 5 MG TAB PO SCH (09:54)
[2024-02-11] MEDS: Vitamin B Complex/Vit C/Folic Acid PO SCH (09:55)
[2024-02-11] MEDS: HYDRALAZINE 25MG TABLET PO SCH (12:22)
[2024-02-11] MEDS: FAMOTIDINE 20MG TAB PO SCH (22:25)
[2024-02-12] VITALS (75 sets, daily range): BP systolic 93–152; BP diastolic 32–96; PULSE 65–78; RESP 9–27; TEMP 97.9; O2SAT 96–99
[2024-02-12] MEDS: SODIUM CHLORIDE 3% FOR INHALATION 4 ML/AMP VIAL.NEB IH ONE ×2 (02:48→13:43)
[2024-02-12 04:20] LABS: ALBUMIN 2.9 g/dL (3.5-5.0); BILIRUBIN,TOTAL 1.1 mg/dL (0.2-1.0); MAGNESIUM 2.1 mg/dL (1.80-2.40); MEAN CORPUSCULAR HEMOGLOBIN 31.8 pg (27.0-33.0); MEAN CORPUSCULAR HGB CONC 32.3 g/dL (32.0-36.0); MEAN CORPUSCULAR VOLUME 98.4 fL (79-99); PLATELET COUNT (AUTO) 156 K/uL (130-400); POTASSIUM 3.3 mmol/L (3.5-5.1); RED BLOOD CELL COUNT(AUTO) 3.05 MIL/uL (4.00-5.50); RED CELL DISTRIBUTION WIDTH 16.8 % (11.0-15.5); TOTAL PROTEIN, SERUM 7.3 g/dL (6.0-8.3); WHITE BLOOD COUNT (AUTO) 8.2 K/uL (4.8-10.8)
[2024-02-12 05:53] LABS: BAND NEUTROPHILS % (MANUAL) 5 % (0-2); BASOPHILS % (MANUAL) 1 % (0-2); EOSINOPHILS % (MANUAL) 5 % (1-6); LYMPHOCYTES % (MANUAL) 12 % (22-44); MAN.DIFF COMMENT-IMPRESSION MANUAL DIFFERENTIAL; MONOCYTES % (MANUAL) 8 % (2-9); REACTIVE LYMPHOCYTES 3 % (0-0); SEGMENTED NEUTROPHILS % 66 % (40-70); TOTAL CELLS COUNTED 100; WBC MORPHOLOGY REACTIVE LYMPHS 1+
[2024-02-12] MEDS ORDERED: GLUCAGON 1MG KIT 1 MG ML IM PRN (06:30)
[2024-02-12] MEDS: DEXTROSE 50%-WATER 50 ML DISP.SYRIN IV PRN (06:36)
[2024-02-12] MEDS: 0.9%NACL 1000ML 1,000 ML IV SCH (09:57)
[2024-02-12] MEDS: EPOETIN ALFA-EPBX (NON-ESRD) 10,000 UNIT/ML VIAL SQ SCH (20:47)
[2024-02-12] MEDS: INSULIN GLARGINE 100 UNITS/ML 10 ML VIAL SQ SCH (21:04)
[2024-02-13] VITALS (39 sets, daily range): BP systolic 98–145; BP diastolic 47–84; PULSE 65–77; RESP 9–24; O2SAT 94–100
[2024-02-13 04:00] LABS: POTASSIUM 3.7 mmol/L (3.5-5.1)
[2024-02-14] VITALS (21 sets, daily range): BP systolic 110–189; BP diastolic 50–86; PULSE 67–100; RESP 15–18; TEMP 97.4–97.8; O2SAT 99–100
[2024-02-14 05:59] LABS: PHOSPHORUS 4.3 mg/dL (2.5-4.9); POTASSIUM 3.3 mmol/L (3.5-5.1)
[2024-02-14 06:04] LABS: BASOPHILS # (AUTO) 0.12 K/uL (0.00-0.20); BASOPHILS % (AUTO) 1.4 % (0.0-5.0); EOSINOPHILS # (AUTO) 0.23 K/uL (0.00-0.70); EOSINOPHILS % (AUTO) 2.6 % (0.0-8.0); HEMATOCRIT 31.1 % (36-48); IMMATURE GRANULOCYTE ABSOLUTE 0.02 K/uL (0-1); LYMPHOCYTES # (AUTO) 0.8 K/uL (1.0-4.8); LYMPHOCYTES % (AUTO) 9.6 % (21.0-51.0); MEAN CORPUSCULAR HEMOGLOBIN 31.4 pg (27.0-33.0); MEAN CORPUSCULAR HGB CONC 31.8 g/dL (32.0-36.0); MEAN CORPUSCULAR VOLUME 98.7 fL (79-99); MONOCYTES # (AUTO) 1.1 K/uL (0.1-1.0); NEUTROPHILS # (AUTO) 6.5 K/uL (1.8-7.7); NEUTROPHILS % (AUTO) 74.2 % (40.0-77.0); PLATELET COUNT (AUTO) 172 K/uL (130-400); RED BLOOD CELL COUNT(AUTO) 3.15 MIL/uL (4.00-5.50); RED CELL DISTRIBUTION WIDTH 16.5 % (11.0-15.5); WHITE BLOOD COUNT (AUTO) 8.7 K/uL (4.8-10.8)
[2024-02-14] MEDS: INSULIN HUMULIN R 100 UNIT/ML 3ML SQ SCH (07:30)
[2024-02-14] MEDS: CALCIUM CARB 500MG CHEW TAB PO ONE (13:00)
[2024-02-14] MEDS: CALCIUM CARB 500MG CHEW TAB PO PRN (21:12)
[2024-02-14] MEDS: ACETAMINOPHEN 325 MG TAB PO PRN (21:13)
[2024-02-15] VITALS (73 sets, daily range): BP systolic 93–132; BP diastolic 29–68; PULSE 68–85; RESP 7–21; O2SAT 99
[2024-02-15 05:47] LABS: BASOPHILS # (AUTO) 0.13 K/uL (0.00-0.20); BASOPHILS % (AUTO) 1.6 % (0.0-5.0); EOSINOPHILS # (AUTO) 0.14 K/uL (0.00-0.70); EOSINOPHILS % (AUTO) 1.7 % (0.0-8.0); HEMATOCRIT 32.1 % (36-48); IMMATURE GRANULOCYTE ABSOLUTE 0.01 K/uL (0-1); LYMPHOCYTES # (AUTO) 1.1 K/uL (1.0-4.8); LYMPHOCYTES % (AUTO) 13.2 % (21.0-51.0); MEAN CORPUSCULAR HEMOGLOBIN 31.8 pg (27.0-33.0); MEAN CORPUSCULAR HGB CONC 30.8 g/dL (32.0-36.0); MEAN CORPUSCULAR VOLUME 103.2 fL (79-99); MONOCYTES % (AUTO) 11.5 % (3.0-13.0); NEUTROPHILS % (AUTO) 71.9 % (40.0-77.0); PLATELET COUNT (AUTO) 170 K/uL (130-400); RED BLOOD CELL COUNT(AUTO) 3.11 MIL/uL (4.00-5.50); RED CELL DISTRIBUTION WIDTH 16.3 % (11.0-15.5); WHITE BLOOD COUNT (AUTO) 8.3 K/uL (4.8-10.8)
[2024-02-15 06:03] LABS: CREATININE 4.1 mg/dL (0.5-1.0); POTASSIUM 4.3 mmol/L (3.5-5.1)
[2024-02-15] MEDS: INSULIN HUMULIN R 100 UNIT/ML 3ML IV ONE (06:53)
[2024-02-15] MEDS: MIDODRINE HCL 5 MG TABLET PO STA (07:47)
[2024-02-15] MEDS: INSULIN HUMULIN R 100 UNIT/ML 3ML SQ STA (08:54)
[2024-02-15] MEDS ORDERED: D5W-1/2 NS/20MEQ KCL 1,000 ML IV SCH (11:00)
[2024-02-15] MEDS ORDERED: POTASSIUM CHLORIDE 10MEQ/100ML 100 ML IV PRN (11:00)
[2024-02-15] MEDS ORDERED: MAGNESIUM 2GM PREMIX 50ML 50 ML IV SCH (11:00)
[2024-02-15] MEDS: INSULIN REGULAR, HUMAN 3ML 100 UNIT in 0.9%NACL 100ML 100 ML IV SCH (11:16)
[2024-02-15 15:00] LABS: CREATININE 4.7 mg/dL (0.5-1.0); POTASSIUM 3.5 mmol/L (3.5-5.1)
[2024-02-15] MEDS: INSULIN GLARGINE 100 UNITS/ML 10 ML VIAL SQ ONE (15:44)
[2024-02-15] MEDS: INSULIN HUMULIN R 100 UNIT/ML 3ML SQ SCH (21:00)
[2024-02-15 22:25] LABS: CREATININE 4.8 mg/dL (0.5-1.0); POTASSIUM 3.8 mmol/L (3.5-5.1)
[2024-02-16] VITALS (13 sets, daily range): BP systolic 98–151; BP diastolic 40–78; PULSE 65–71; RESP 9–19; O2SAT 99–100
[2024-02-16 03:54] LABS: BASOPHILS # (AUTO) 0.14 K/uL (0.00-0.20); BASOPHILS % (AUTO) 1.4 % (0.0-5.0); EOSINOPHILS # (AUTO) 0.26 K/uL (0.00-0.70); EOSINOPHILS % (AUTO) 2.6 % (0.0-8.0); HEMATOCRIT 30.5 % (36-48); IMMATURE GRANULOCYTE ABSOLUTE 0.02 K/uL (0-1); LYMPHOCYTES # (AUTO) 1.6 K/uL (1.0-4.8); LYMPHOCYTES % (AUTO) 15.7 % (21.0-51.0); MEAN CORPUSCULAR HEMOGLOBIN 31.3 pg (27.0-33.0); MEAN CORPUSCULAR HGB CONC 32.1 g/dL (32.0-36.0); MEAN CORPUSCULAR VOLUME 97.4 fL (79-99); MONOCYTES # (AUTO) 1.3 K/uL (0.1-1.0); MONOCYTES % (AUTO) 12.3 % (3.0-13.0); NEUTROPHILS # (AUTO) 6.9 K/uL (1.8-7.7); NEUTROPHILS % (AUTO) 67.8 % (40.0-77.0); PLATELET COUNT (AUTO) 193 K/uL (130-400); RED BLOOD CELL COUNT(AUTO) 3.13 MIL/uL (4.00-5.50); WHITE BLOOD COUNT (AUTO) 10.2 K/uL (4.8-10.8)
[2024-02-16 04:02] LABS: POTASSIUM 3.9 mmol/L (3.5-5.1)
[2024-02-16 08:28] LABS: CREATININE 5.4 mg/dL (0.5-1.0); POTASSIUM 3.5 mmol/L (3.5-5.1)
[2024-02-16] MEDS ORDERED: INSULIN GLARGINE 100 UNITS/ML 10 ML VIAL SQ SCH (09:00)
[2024-02-16] MEDS: INSULIN GLARGINE 100 UNITS/ML 10 ML VIAL SQ SCH (11:45)
[2024-02-16] MEDS: MIDODRINE HCL 5 MG TABLET PO PRN (11:59)
[2024-02-17] VITALS (19 sets, daily range): BP systolic 118–157; BP diastolic 50–78; PULSE 18–70; RESP 15–19; TEMP 98–98.1; O2SAT 97
[2024-02-17 05:02] LABS: POTASSIUM 3.8 mmol/L (3.5-5.1)
[2024-02-17] MEDS ORDERED: 0.9%NACL 1000ML 1,000 ML IV SCH (15:30)
== END 2024-02-17 19:40 | DRG 871 ==
LOC: EDH 17:49 → EDHIP 20:17 → OBSVTOIN 20:17 → 4BH 22:25 → 2BH 02-10 00:56 → 3BH 02-13 18:20 → 2CV 02-15 10:52 → 2BH 02-15 19:03 → 4BH 02-16 16:35
PROVIDERS: ADMIT Internal Medicine; ATTEND Internal Medicine
PROC: 5A1D70Z Performance of Urinary Filtration, Intermittent, Less than 6 Hours Per Day (ICD-10-PCS; principal; 2024-02-10)
PROC: 5A1D70Z Performance of Urinary Filtration, Intermittent, Less than 6 Hours Per Day (ICD-10-PCS; 2024-02-12)
PROC: 5A1D70Z Performance of Urinary Filtration, Intermittent, Less than 6 Hours Per Day (ICD-10-PCS; 2024-02-14)
PROC: 5A1D70Z Performance of Urinary Filtration, Intermittent, Less than 6 Hours Per Day (ICD-10-PCS; 2024-02-17)
DX: A41.9 Sepsis, unspecified organism (principal); E11.10 Type 2 diabetes mellitus with ketoacidosis without coma; I50.33 Acute on chronic diastolic (congestive) heart failure; J18.9 Pneumonia, unspecified organism; N18.6 End stage renal disease; J96.21 Acute and chronic respiratory failure with hypoxia; R65.21 Severe sepsis with septic shock; I13.2 Hypertensive heart and chronic kidney disease with heart failure and with stage 5 chronic kidney disease, or end stage renal disease; E72.20 Disorder of urea cycle metabolism, unspecified; J98.11 Atelectasis; R18.8 Other ascites; Z20.822 Contact with and (suspected) exposure to COVID-19; E11.22 Type 2 diabetes mellitus with diabetic chronic kidney disease; D64.9 Anemia, unspecified; E78.5 Hyperlipidemia, unspecified; E87.5 Hyperkalemia; I27.20 Pulmonary hypertension, unspecified; I95.89 Other hypotension; R16.0 Hepatomegaly, not elsewhere classified; R74.01 Elevation of levels of liver transaminase levels; K21.9 Gastro-esophageal reflux disease without esophagitis; F32.A Depression, unspecified; F41.9 Anxiety disorder, unspecified; Z99.2 Dependence on renal dialysis; Z79.4 Long term (current) use of insulin
CPT/HCPCS: 36415; 36600; 71045; 73560; 76705; 80048; 80053; 80076; 82010; 82140; 82435; 82803; 82947; 82948; 83036; 83605; 83735; 83880; 84100; 84132; 84145; 84295; 84484; 85018; 85025; 85610; 85730; 86704; 86706; 86803; 87040; 87340; 87635; 87804; 90935; 93005; 94640; 94664; A6250; G0378; J0360; J1644; J1815; J2470; J2543; J3490; J7070; P9045; Q5106

== ENCOUNTER 2024-04-30 09:00 | Emergency (ER) | payer OTHER, MEDICARE ==
[~2024-04-30] VITALS: Ht 152.4 cm; Wt 58.1 kg
[~2024-04-30 09:00] MED LIST changes: +AMLO-257 PO; +ATOR40TA69 PO; -ATOR40TA71 PO; +CHOL2000 PO; -CHOL200074 PO; -DICY20TA2 PO; -FLUT1BLS3 PUFF; +FOLI0.4T6 PO; -FOLI0.8T22 PO; +FOLI0.8T43 PO; -HYDR-4060 PO; +LIDO1ADH82 TP; +MELA10TA2 PO; -MELA1TAB73 PO; +PANT40TA54 PO; +SERT-439 PO
[2024-04-30 09:34] LABS: BASOPHILS # (AUTO) 0.12 K/uL (0.00-0.20); EOSINOPHILS # (AUTO) 0.25 K/uL (0.00-0.70); EOSINOPHILS % (AUTO) 2.1 % (0.0-8.0); HEMATOCRIT 33.7 % (36-48); IMMATURE GRANULOCYTE ABSOLUTE 0.05 K/uL (0-1); LYMPHOCYTES # (AUTO) 1.5 K/uL (1.0-4.8); MEAN CORPUSCULAR HEMOGLOBIN 31.3 pg (27.0-33.0); MEAN CORPUSCULAR VOLUME 97.7 fL (79-99); MONOCYTES # (AUTO) 1.7 K/uL (0.1-1.0); MONOCYTES % (AUTO) 14.5 % (3.0-13.0); NEUTROPHILS # (AUTO) 8.1 K/uL (1.8-7.7); PLATELET COUNT (AUTO) 189 K/uL (130-400); RED BLOOD CELL COUNT(AUTO) 3.45 MIL/uL (4.00-5.50); RED CELL DISTRIBUTION WIDTH 15.4 % (11.0-15.5); WHITE BLOOD COUNT (AUTO) 11.8 K/uL (4.8-10.8)
[2024-04-30] MEDS: IpraTROPium/alBUTERol SULFATE 3 ML SOLUTION IH ONE (09:36)
[2024-04-30 09:38] VITALS: PULSE 78; RESP 20
[2024-04-30 09:48] LABS: CREATININE 3.6 mg/dL (0.5-1.0); POTASSIUM 3.7 mmol/L (3.5-5.1)
[2024-04-30] MEDS: DEXTROSE 50%-WATER 50 ML DISP.SYRIN IV ONE ×2 (10:07→10:08)
[2024-04-30 10:20] LABS: B-TYPE NATRIURETIC PEPTIDE 3380 pg/mL (0-100)
[2024-04-30 13:00] VITALS: BP 112/61; PULSE 78; RESP 20; TEMP 97; O2SAT 98
[2024-05-04] MEDS ORDERED: FAMO20TA8 PO (13:07)
[2024-05-04] MEDS ORDERED: SITA25TA5 PO (13:07)
== END 2024-04-30 13:01 | disposition home or self-care (01) ==
LOC: EDH 09:00
DX: J44.1 Chronic obstructive pulmonary disease with (acute) exacerbation (principal); E11.649 Type 2 diabetes mellitus with hypoglycemia without coma; E03.9 Hypothyroidism, unspecified; F32.A Depression, unspecified; I10 Essential (primary) hypertension; K21.9 Gastro-esophageal reflux disease without esophagitis; Z79.899 Other long term (current) drug therapy; Z86.16 Personal history of COVID-19; Z90.49 Acquired absence of other specified parts of digestive tract
CPT/HCPCS: 99285; 96365; 96366; 71045; 82550; 84484; 80048; 83880; 85025; 82948 ×2; 36415; 93005; 94640; J7070

== ENCOUNTER 2024-05-22 10:01 | Observation (INO) | payer OTHER, MEDICARE ==
[~2024-05-22] VITALS: Ht 152.4 cm; Wt 67.1 kg
[2024-05-22] VITALS (17 sets, daily range): BP systolic 80–140; BP diastolic 38–67; PULSE 63–83; RESP 16–20; TEMP 97.4–98; O2SAT 94
[~2024-05-22 10:01] MED LIST changes: +CLIN-141 PO; -ESOM40CA66 PO; +FAMO20TA8 PO; -FOLI0.4T6 PO; +LEVO750T68 PO; -LIDO1ADH82 TP; +SITA25TA5 PO
[2024-05-22 10:47] LABS: BASOPHILS # (AUTO) 0.08 K/uL (0.00-0.20); EOSINOPHILS # (AUTO) 0.17 K/uL (0.00-0.70); EOSINOPHILS % (AUTO) 2.2 % (0.0-8.0); HEMATOCRIT 33.8 % (36-48); IMMATURE GRANULOCYTE ABSOLUTE 0.03 K/uL (0-1); LYMPHOCYTES % (AUTO) 12.2 % (21.0-51.0); MEAN CORPUSCULAR VOLUME 97.1 fL (79-99); MONOCYTES # (AUTO) 0.8 K/uL (0.1-1.0); MONOCYTES % (AUTO) 10.1 % (3.0-13.0); NEUTROPHILS # (AUTO) 5.8 K/uL (1.8-7.7); NEUTROPHILS % (AUTO) 74.1 % (40.0-77.0); PLATELET COUNT (AUTO) 169 K/uL (130-400); RED BLOOD CELL COUNT(AUTO) 3.48 MIL/uL (4.00-5.50); WHITE BLOOD COUNT (AUTO) 7.9 K/uL (4.8-10.8)
[2024-05-22 10:50] LABS: CARBON DIOXIDE 29 mmol/L (21-32); CHLORIDE 92 mmol/L (101-111); CREATININE 4.6 mg/dL (0.5-1.0); GLOMERULAR FILTR. RATE CALC 10 mL/min (>90); GLUCOSE,RANDOM 188 mg/dL (70-105); POTASSIUM 4.4 mmol/L (3.5-5.1); SODIUM SERUM 133 mmol/L (136-145); UREA NITROGEN, BLOOD 43 mg/dL (7-18)
[2024-05-22 10:53] LABS: INR 1.22 (0.85-1.15)
[2024-05-22 10:55] LABS: PARTIAL THROMBOPLASTIN TIME 28.2 SEC (26.3-35.5)
[2024-05-22 11:03] LABS: AMMONIA < 10 umol/L (11-32)
[2024-05-22] MEDS ORDERED: ALBUMIN (HUMAN) 25% 200 ML IV ONE (13:04)
[2024-05-22] MEDS ORDERED: guaiFENesin SUGAR-FREE 100 MG/5 ML UDCUP PO PRN (14:00)
[2024-05-22] MEDS ORDERED: hydrALAZine 25MG TABLET PO PRN (14:00)
[2024-05-22] MEDS ORDERED: doCUSate SODIUM 100 MG CAP PO PRN (14:00)
[2024-05-22] MEDS ORDERED: ondanSETRON 4MG INJ IV PRN (14:00)
[2024-05-22] MEDS ORDERED: NON-FORMULARY MEDICATION 1 EACH (Midodrine HCl 10 MG) PO PRN (14:00)
[2024-05-22] MEDS ORDERED: acetaMINOPHEN 325 MG TAB PO PRN ×2 (14:00)
[2024-05-22] MEDS ORDERED: polyETHYLene GLYCol 3350 17 GM POWD.PACK PO PRN (14:00)
[2024-05-22] MEDS ORDERED: INSULIN humuLIN R 100 UNIT/ML 3ML SQ SCH (16:30)
[2024-05-22] MEDS ORDERED: 0.9%NACL 1000ML 1,000 ML IV SCH (17:30)
[2024-05-22] MEDS ORDERED: 0.9% NACL 250ML 250 ML IV SCH (17:30)
[2024-05-22] MEDS ORDERED: hydrALAZine 25MG TABLET PO SCH (18:00)
[2024-05-22 18:10] LABS: BODY FLUID RBC 2251 /cu. mm.; BODY FLUID WBC 1430 /cu. mm.
[2024-05-22 18:18] LABS: BF LYMPHOCYTE 38 %; BF MACROPHAGE 60; BF OTHER CELLS 1; BF TOTAL CELLS COUNTED 100
[2024-05-22] MEDS ORDERED: atorVAStatin 10 MG TABLET PO SCH (21:00)
[2024-05-22] MEDS ORDERED: MELATONIN 5 MG TABLET PO SCH (21:00)
[2024-05-22] MEDS ORDERED: FAMOTIDINE 20MG TAB PO SCH (21:00)
[2024-05-22] MEDS ORDERED: trAZOdone HCL 50 MG TAB PO SCH (21:00)
[2024-05-22] MEDS: 0.9%NACL 1000ML 1,000 ML IV SCH (21:37)
[2024-05-22] MEDS: ALBUMIN (HUMAN) 25% 50 ML IV.SOLN. IV SCH (22:48)
[2024-05-23] MEDS ORDERED: Cholecalciferol (Vitamin D3) (Vitamin D3) 50 MCG PO SCH (09:00)
[2024-05-23] MEDS ORDERED: amLODIPine 5 MG TAB PO SCH (09:00)
[2024-05-23] MEDS ORDERED: Vitamin B Complex/Vit C/Folic Acid PO SCH (09:00)
[2024-05-23] MEDS ORDERED: SERTraline HCL 50 MG TABLET PO SCH (09:00)
[2024-05-23] MEDS ORDERED: (Sitagliptin Phosphate (Januvia) 1 TAB) PO SCH (09:00)
[2024-05-25 07:24] LABS: APPEARANCE BODY FLUID CLOUDY (CLEAR); SPECIMENTYPE,BODY FLUID ASCITES; TOTAL VOLUME,BODY FLUID 6500 mL
[2024-05-25 07:25] LABS: COLOR,BODY FLUID DARK YELLOW (LT YELLOW)
== END 2024-05-22 23:17 | disposition left against medical advice (07) ==
LOC: EDH 10:01 → EDHIP 13:42 → 3CH 17:35
PROVIDERS: ADMIT Internal Medicine; ATTEND Internal Medicine
DX: I12.0 Hypertensive chronic kidney disease with stage 5 chronic kidney disease or end stage renal disease (principal); E11.22 Type 2 diabetes mellitus with diabetic chronic kidney disease; D63.1 Anemia in chronic kidney disease; N18.6 End stage renal disease; R18.8 Other ascites; E03.9 Hypothyroidism, unspecified; E11.65 Type 2 diabetes mellitus with hyperglycemia; E87.70 Fluid overload, unspecified; I07.1 Rheumatic tricuspid insufficiency; J44.9 Chronic obstructive pulmonary disease, unspecified; J90 Pleural effusion, not elsewhere classified; J96.21 Acute and chronic respiratory failure with hypoxia; F32.A Depression, unspecified; K21.9 Gastro-esophageal reflux disease without esophagitis; K76.9 Liver disease, unspecified; R14.0 Abdominal distension (gaseous); E05.90 Thyrotoxicosis, unspecified without thyrotoxic crisis or storm; Z99.81 Dependence on supplemental oxygen; Z99.2 Dependence on renal dialysis; Z86.16 Personal history of COVID-19; Z79.899 Other long term (current) drug therapy; Z98.890 Other specified postprocedural states
CPT/HCPCS: 96365; 93005; 99285; 84484; 80048; 82140; 85025; 89051; 85610; 85730; 87071; 87205; 82948; 36415; 71045; 49083; 90935; G0378 ×7; P9046; C1729; G0257

== ENCOUNTER 2024-08-07 13:36 | Observation (INO) | payer OTHER, MEDICARE ==
[~2024-08-07] VITALS: Ht 152.4 cm; Wt 65.0 kg
[~2024-08-07 13:36] MED LIST changes: -AMLO-257 PO; -CLIN-141 PO; -HYDR50TA37 PO; +INSLAN SQ; +INSU100V3 SQ; -LEVO750T68 PO; -MELA10TA2 PO; -MIDO10TA PO; +MIDO10TA3 PO
[2024-08-07 13:57] LABS: ABG BASE EXCESS 2.3 mmol/L (-2.0-3.0); ABG HCO3 25.8 mmol/L (21.0-28.0); ABG OXYGEN SATURATION 93.6 % (94.0-98.0); ABG PCO2 37 mmHg (32-45); ABG PH 7.468 (7.350-7.450); CARBON MONOXIDE 0.5 % (0.5-1.5); HHb 6.4; VENT MODE, BG PRNRM (ROOM AIR)
--- NOTE | 2024-08-07 14:12 | ERN ---
General Chief Complaint: Shortness of Breath Stated Complaint: SOB Time Seen by MD: 13:59 History of Present Illness Initial Comments Patient comes in with complaint of difficulty breathing. Based on he is on end- stage renal disease on dialysis Fridays. States he makes no urine. Patient also receives PRN paracentesis for ascites and cirrhosis. Patient reports that while at dialysis he started getting short of breath and was noted to be hypoxic to 82-83% on room air. He also developed some discomfort in her chest. Patient also reports history of pulmonary embolism. She is brought in by EMS. Patient does have chronic leg swelling which is present now but she states it seems better than baseline Allergies: Coded Allergies: No Known Drug Allergies (Verified Allergy, Unknown, 05/05/18) Home Meds Active Scripts Midodrine HCl (Midodrine HCl) 10 Mg Tablet, 1 TAB PO TID for 30 Days, #90 TAB 0 Refills Prov:NASRIN ESTEVEZ 07/28/24 Insulin Glargine,Hum.rec.anlog (Lantus) 100 Unit/Ml Inj, 5 UNITS SQ BID, #15 ML Prov:ABAD RAMIREZ NP 07/13/24 Insulin Regular, Human (Humulin R) 100 Unit/Ml Vial, 5 UNIT SQ ACHS, #7 VIAL Prov:SHARAN CARPENTER PA 05/30/24 Reported Medications Pantoprazole Sodium (Pantoprazole Sodium) 40 Mg Tablet.dr, 1 TAB PO DAILY for 30 Days, #30 TAB 0 Refills 05/13/24 Sitagliptin Phosphate (Januvia) 25 Mg Tablet, 1 TAB PO DAILY for 30 Days, #30 TAB 0 Refills 05/04/24 Famotidine (Famotidine) 20 Mg Tablet, 1 TAB PO QODAY for 30 Days, #60 TAB 0 Refills 05/04/24 Cholecalciferol (Vitamin D3) (Vitamin D3) 50 Mcg (2000 Unit) Capsule, 50 MCG PO DAILY, CAP 02/10/24 Folic Acid/Vit Bcomp,C (Renal-Emmett Tablet) 0.8 Mg Tablet, 0.8 MG PO DAILY, TAB 02/10/24 Sucroferric Oxyhydroxide (Velphoro) 500 Mg Iron Tab.chew, 1000 MG PO ACHS, TAB.CHEW 02/10/24 Trazodone HCl (Trazodone HCl) 50 Mg Tablet, 50 MG PO HS, TAB 02/10/24 Atorvastatin Calcium (LIPITOR) 40 Mg Tablet, 10 MG PO HS, TAB 02/10/24 Sertraline HCl (Sertraline HCl) 50 Mg Tablet, 100 MG PO DAILY, TAB 02/10/24 Past Medical History Past Medical History: COPD, Diabetes-Type II, High Cholesterol, Hypertension Medical History Other: + COVID X 2, LUNG SCARRING.THORACENTESIS, RT LEG FX 01/2024 Past Surgical History: Cholecystectomy, LAVA Surgical History Other: LEFT LEG SX, LAVG Social History Social History: Negative, Lives with family Female( History) History: Not Applicable ROS Dictation Ten systems reviewed and negative except as noted in HPI Physical Exam Physical Exam Dictation GEN: non toxic, NAD HEENT: atrumatic, PERRL, EOMI, conjunctivae normal NECK: Soft supple nontender. JVD with the [place] all the way up to the angle of the jaw Heart RRR, no murmurs Chest: No deformity Lungs: Rhonchorous with rales bilaterally half midway Ab: Soft nondistended nontender Back: No midline step-offs. No gross deformity. No CVA tenderness : m/s: Moving all four extremities. No gross deformity Neuro: CN 2-12 intact. Moving all four extremities. Plus three pitting edema bilaterally Psych: Cooperative IVF Sepsis Management IVF Sepsis Management Sepsis IVF contraindications?: Dialysis and fluid overload Results Laboratory and Microbiology Lab and Micro Result Laboratory Tests Test 08/07/24 13:56 08/07/24 14:28 08/07/24 16:46 08/07/24 18:05 Blood Gas Specimen Type Arterial Arterial Blood pH 7.468 (7.350-7.450) Arterial Blood Partial Pressure CO2 37 mmHg (32-45) Arterial Blood Partial Pressure O2 68.0 mmHg (83.0-108.0) L Arterial Blood HCO3 25.8 mmol/L (21.0-28.0) Arterial Blood Oxygen Saturation 93.6 % (94.0-98.0) L Arterial Blood Base Excess 2.3 mmol/L (-2.0-3.0) Hemoglobin (Blood Gas) 12.3 g/dL (12.0-16.0) Sodium (Blood Gas) 133 MMOL/L (136-145) L Bedside Potassium (Blood Gas) 3.8 MMOL/L (3.4-4.5) Bedside Chloride (Blood Gas) 92 MMOL/L (98-107) L Bedside Glucose (Blood Gas) 271 MG/DL (65-95) H Bedside Ionized Calcium (Blood Gas) 1.02 MMOL/L (1.15-1.33) L Bedside Lactic Acid (Blood Gas) 1.58 MMOL/L (0.36-0.75) H Blood Gas Temperature 37.0 CELSIUS (35.5-37.0) Blood Gas Flow-by 12.00 L/min (0.00-15.00) Blood Gas Vent Mode PRNRM (ROOM AIR) FiO2 70.0 % Blood Gas Specimen Comment DR. PRANEETH White Blood Count 11.5 K/uL (4.8-10.8) H Red Blood Count 4.01 MIL/uL (4.00-5.50) Hemoglobin 12.2 g/dL (12.0-16.0) Hematocrit 38.5 % (36-48) Mean Corpuscular Volume 96.0 fL (79-99) Mean Corpuscular Hemoglobin 30.4 pg (27.0-33.0) Mean Corpuscular Hemoglobin Concent 31.7 g/dL (32.0-36.0) L Red Cell Distribution Width 15.0 % (11.0-15.5) Platelet Count 123 K/uL (130-400) L Mean Platelet Volume 10.9 fL (7.5-10.5) H Immature Granulocyte % (Auto) 0.3 % (0-1) Neutrophils (%) (Auto) 86.6 % (40.0-77.0) H Lymphocytes (%) (Auto) 5.0 % (21.0-51.0) L Monocytes (%) (Auto) 5.7 % (3.0-13.0) Eosinophils (%) (Auto) 1.5 % (0.0-8.0) Basophils (%) (Auto) 0.9 % (0.0-5.0) Neutrophils # (Auto) 10.0 K/uL (1.8-7.7) H Lymphocytes # (Auto) 0.6 K/uL (1.0-4.8) L Monocytes # (Auto) 0.7 K/uL (0.1-1.0) Eosinophils # (Auto) 0.17 K/uL (0.00-0.70) Basophils # (Auto) 0.10 K/uL (0.00-0.20) Absolute Immature Granulocyte (auto 0.04 K/uL (0-1) Nucleated Red Blood Cells 0.0 % (0.0-0.19) White Cell Morphology Comment See comments D-Dimer Quantitative (PE/DVT) 4762 ng/mL (0-500) *H Sodium Level 136 mmol/L (136-145) Potassium Level 3.9 mmol/L (3.5-5.1) Chloride Level 94 mmol/L (101-111) L Carbon Dioxide Level 31 mmol/L (21-32) Blood Urea Nitrogen 14 mg/dL (7-18) Creatinine 3.3 mg/dL (0.5-1.0) H Glomerular Filtration Rate Calc 15 mL/min (>90) Random Glucose 279 mg/dL (70-105) H Total Calcium 7.9 mg/dL (8.5-10.1) L Troponin I High Sensitivity 19 ng/L (4-50) B-Type Natriuretic Peptide 2450 pg/mL (0-100) H Lactic Acid Level 3.6 mmol/L (0.8-2.5) H Procalcitonin 0.52 ng/mL (0.05-0.5) H Whole Blood Glucose 339 MG/DL (70-110) H Bedside Glucose Comment Notified Nurse EKG/XRAY/US/CT/MRI EKG Comment Sinus tachycardia 112 [place] of 124 QRS of 117 QTC of 490 right axis deviation QRS complexes borderline wide. PVCs. Early R-wave transition. Nonspecific STT wave changes. Interpretation abnormal X-RAY Comment PATIENT: RENEE HOOPER MR#: [id number] : 1960 SEX: F AGE: 64 LOCATION: ED ORDER 44 STATUS: REG ER REPORT#: [id number] SERVICE 43 REASON: SOB ORDERING PHYSICIAN: JOCE WATTS MD PROCEDURE: CXR1VW - CHEST 1VW CHEST 1VW REASON: SOB COMPARISON: 07/28/2024 FINDINGS: Left lung is clear. Heart size is stable with no vascular congestion. IMPRESSION: 1. Confluent infiltrate in the right upper lobe consistent with pneumonia. DICTATED BY: JO GALLAGHER MD DATE: 08/07/24 1608 ELECTRONICALLY SIGNED BY: JO GALLAGHER MD DATE: 08/07/[address] Scan Comment PATIENT: RENEE HOOPER MR#: [id number] : 1960 SEX: F AGE: 64 LOCATION: EDH ORDER 26 STATUS: REG ER REPORT#: [id number] SERVICE 162 REASON: hypoxia, d dimer ORDERING PHYSICIAN: JOCE WATTS MD PROCEDURE: CT PE - CT CHEST WWO PE CT CHEST WWO PE HISTORY: Hypoxia COMPARISON: 05/11/2024 TECHNIQUE: CT angiography of the chest was performed. The study was performed using angiographic technique with maximum intensity projection reconstruction images. Patient was given 100 cc of Omnipaque through intravenous route. FINDINGS: No CT evidence of filling defect is seen to suggest pulmonary embolus. No CT evidence of aortic dissection is seen. Bilateral pulmonary infiltrates are seen. There is anasarca. There is small ascites. Fatty changes of the liver are noted. No CT evidence of pleural effusion or pericardial effusion is seen. The heart is enlarged. No evidence of adrenal mass is seen. Degenerative changes of the spine are noted. IMPRESSION: 1. No CT evidence of acute pulmonary embolus is seen. Bilateral pulmonary infiltrates. Small ascites and anasarca. CT was performed with one or more following dose reduction techniques: automated exposure control, adjustment of the mA and kv according to patient's size, or use of a iterative reconstruction technique. DICTATED BY: LENARD MAURO MD DATE: 08/07/24 174 ELECTRONICALLY SIGNED BY: LENARD MAURO MD DATE: 08/07/[address] [facility] Patient appears fluid overloaded. Lungs sound wet and patient has notable JVD as well as lower extremity edema. She was at dialysis and was noted to be hypoxic prior to being transferred. Patient was noted to be hypoxic. Initial thought was that she may be fluid overloaded although she was at dialysis already and had received the proximally 3 hours. Initial chest x-ray shows possible right-sided infiltrate. Patient did have positive D-dimer. Patient did have CT that shows bilateral infiltrate. She does have a lactic acidosis. Patient also has mildly elevated procalcitonin. Patient given Rocephin and azithromycin. Fluids held at this point given clinical signs of continued for lower at overload with JVD and elevated BNP. Plan for an admission. ED Course Orders Procedure Category Date Status Time Cbc With Differential LAB 08/07/24 Complete 13:44 Basic Metabolic Panel LAB 08/07/24 Complete 13:44 12 Lead Ekg Tracing- EKG 08/07/24 Logged Technical 13:44 Chest 1vw RAD 08/07/24 Resulted 13:44 Arterial Blood Gas + RT 08/07/24 Transmitted 13:44 B-Type Natriuretic LAB 08/07/24 Complete Peptide 13:44 Troponin I High LAB 08/07/24 Complete Sensitivity 13:44 Arterial Blood Gas LAB 08/07/24 Complete Arterial + 13:56 D-Dimer LAB 08/07/24 Complete 14:13 Ct Chest Wwo Pe CT 08/07/24 Resulted 16:26 Procalcitonin LAB 08/07/24 Complete 16:30 Lactic Acid LAB 08/07/24 Complete 16:30 Blood Cult MYRIAM 08/07/24 In Process 16:30 Iohexol (Omnipaque) PHA 08/07/24 Complete 16:56 Ceftriaxone 1g Vial PHA 08/07/24 Complete (Rocephine 1g Inj) 17:30 Azithromycin 500mg+Ns PHA 08/07/24 In Process 250ml (Azithromyci 17:30 Current Medications Medications (Trade) Dose Ordered Sig/Dak[place] Route PRN Reason Start Time Stop Time Status Last Admin Dose Admin Azithromycin 250 ml @ 250 mls/hr ONCE IVPB 08/07/24 17:30 08/17/24 17:29 08/07/24 18:04 Ceftriaxone Sodium (ROCEphine 1G INJ) 1 gm ONCE ONCE IVPB 08/07/24 17:30 08/07/24 17:31 DC 08/07/24 18:02 Iohexol (Omnipaque) 35,000 mg STK-MED ONCE IV 08/07/24 16:56 08/07/24 16:56 DC Vital Signs Date Time Temp Pulse Resp B/P (MAP) Pulse Ox O2 Delivery O2 Flow Rate FiO2 08/07/24 17:08 96 20 120/31 97 Nasal Cannula* 2 28 08/07/24 15:20 109 20 139/47 94 Nasal Cannula* 2 28 08/07/24 13:37 121 20 144/73 97 Nonrebreathing Mask 8.0 DX & DISP Disposition: Inpatient Departure Impression: Primary Impression: Fluid overload Additional Impressions: ESRD on dialysis, Pneumonia Condition: Stable Referrals: STACEY FIELDS MD (PCP) JOCE WATTS MD Aug 07, 2024 14:12
[2024-08-07 14:41] LABS: BASOPHILS % (AUTO) 0.9 % (0.0-5.0); EOSINOPHILS # (AUTO) 0.17 K/uL (0.00-0.70); EOSINOPHILS % (AUTO) 1.5 % (0.0-8.0); HEMATOCRIT 38.5 % (36-48); IMMATURE GRANULOCYTE ABSOLUTE 0.04 K/uL (0-1); LYMPHOCYTES # (AUTO) 0.6 K/uL (1.0-4.8); MEAN CORPUSCULAR HEMOGLOBIN 30.4 pg (27.0-33.0); MEAN CORPUSCULAR HGB CONC 31.7 g/dL (32.0-36.0); MONOCYTES # (AUTO) 0.7 K/uL (0.1-1.0); MONOCYTES % (AUTO) 5.7 % (3.0-13.0); NEUTROPHILS % (AUTO) 86.6 % (40.0-77.0); PLATELET COUNT (AUTO) 123 K/uL (130-400); RED BLOOD CELL COUNT(AUTO) 4.01 MIL/uL (4.00-5.50); WHITE BLOOD COUNT (AUTO) 11.5 K/uL (4.8-10.8)
[2024-08-07 14:57] LABS: CREATININE 3.3 mg/dL (0.5-1.0); POTASSIUM 3.9 mmol/L (3.5-5.1)
[2024-08-07 15:17] LABS: B-TYPE NATRIURETIC PEPTIDE 2450 pg/mL (0-100)
--- NOTE | 2024-08-07 15:20 | NUR ---
PT STATES SHE IS BREATHING BETTER, REMOVED NON REBREATHER MASK AND PLACED ON NASAL CANNULA 2 LPM. SATS 94%
--- NOTE | 2024-08-07 16:04 | NUR ---
Mya giraldo in EDM - 08/07/[address] WATTS NOTIFIED OF B/P 227/86, NO NEW ORDERS AT THIS TIME, STATES WILL WAIT AND REASSESS.
--- NOTE | 2024-08-07 16:12 | HMCIMG ---
CHEST 1VW REASON: SOB COMPARISON: 07/28/2024 FINDINGS: Left lung is clear. Heart size is stable with no vascular congestion. IMPRESSION: 1. Confluent infiltrate in the right upper lobe consistent with pneumonia.
[2024-08-07] MEDS ORDERED: IOHEXOL 350 MG/ML 100ML INFUS..BTL IV ONE (16:56)
--- NOTE | 2024-08-07 17:42 | NUR ---
PER CHEMICAL EQUIPMENT REPAIRERVITALY CAMARA & DR JOCE WATTS, PATIENT WILL BE DIALYZED AFTER CT EXAM. COURTESY CAR DRIVER WAS NOTIFIED OF PATIENT NEEDING TO BE SCHEDULED FOR DIALYSIS AFTER CT.
--- NOTE | 2024-08-07 17:51 | HMCIMG ---
CT CHEST [facility] PE HISTORY: Hypoxia COMPARISON: 05/11/2024 TECHNIQUE: CT angiography of the chest was performed. The study was performed using angiographic technique with maximum intensity projection reconstruction images. Patient was given 100 cc of Omnipaque through intravenous route. FINDINGS: No CT evidence of filling defect is seen to suggest pulmonary embolus. No CT evidence of aortic dissection is seen. Bilateral pulmonary infiltrates are seen. There is anasarca. There is small ascites. Fatty changes of the liver are noted. No CT evidence of pleural effusion or pericardial effusion is seen. The heart is enlarged. No evidence of adrenal mass is seen. Degenerative changes of the spine are noted. IMPRESSION: 1. No CT evidence of acute pulmonary embolus is seen. Bilateral pulmonary infiltrates. Small ascites and anasarca. CT was performed with one or more following dose reduction techniques: automated exposure control, adjustment of the mA and kv according to patient's size, or use of a iterative reconstruction technique.
[2024-08-07] MEDS: cefTRIAXone 1G VIAL IVPB ONE (18:02)
[2024-08-07] MEDS: AZITHROMYCIN 500MG+NS 250ML 250 ML IVPB SCH (18:04)
[2024-08-07 18:50] LABS: INFLUENZA TYPE A Negative For Type A (NEGATIVE); INFLUENZA TYPE B Negative For Type B (NEGATIVE); SARS-CoV-2, RNA, NAAT NEGATIVE SARS CoV-2 (NEGATIVE)
[2024-08-07] MEDS ORDERED: acetaMINOPHEN 650 MG SUPPOSITORY RC PRN (19:00)
[2024-08-07] MEDS ORDERED: acetaMINOPHEN 325 MG TAB PO PRN (19:00)
[2024-08-07] MEDS ORDERED: hydrALAZine 20MG/ML VIAL IV PRN (19:00)
[2024-08-07] MEDS ORDERED: LAbetaLOL 20MG SYG IV PRN (19:00)
[2024-08-07] MEDS ORDERED: HYDROcodone/APAP 5/325 1 TAB TABLET PO PRN (19:00)
--- NOTE | 2024-08-07 19:06 | EKG ---
[facility] Test Date: 2024-08-07 Test Time: 13:53:21 Pat Name: RENEE HOOPER Department: ED Room: 410 Gender: F Javascript Application Developer: [id number] : 1960 Requested By: JOCE WATTS Order Number: [id number] Reading MD: Jaun Bose Measurements Intervals Odin Rate: 112 P: 64 NH: 124 QRS: 137 QRSD: 117 T: -24 QT: 359 QTc: 490 Interpretive Statements Sinus tachycardia Multiple premature complexes, vent & supraven RBBB and LPFB Low voltage, precordial leads Compared to ECG 07/07/2024 16:11:50 Left posterior fascicular block now present Low QRS voltage now present Sinus rhythm no longer present Electronically Signed On 08-08-2024 08:00:37 EMERGENCY COMMUNICATIONS DISPATCHER by Jaun Bose Please click the below link to view image of tracing.
--- NOTE | 2024-08-07 19:07 | HP ---
[facility] HISTORY & PHYSICAL Date Patient Seen: Aug 07, 2024 Time of Visit: 19:05 Supervising Physician:Dr Jonny Cifuentes Primary Care Physician: Dr Schmidt Outpatient Specialists: Dr Watkins Inpatient Consults: [ ] PROBLEM LIST: Acute hypoxic respiratory failure, likely related to pneumonia, CTA of chest negative for embolism, POA Hospital-acquired pneumonia, patient goes to HD center 3 times per week, POA ESRD, with left AV fistula, HD schedule Saturday, Saturday, Saturday, POA Lactic acidosis, initial level at 3.9, POA DM type 2 with hyperglycemia, poorly controlled, POA Hypertension, POA Hyperlipidemia, POA PLAN: Admit to PCCU VS per unit protocol Complete bedrest for now Continue O2 therapy, keep sat above 90% DuoNeb q.6 Mucomyst b.i.d. Start Zosyn IV q.12 hours for hospital acquired pneumonia Trend lactic acid level Incentive spirometry Renal diet Aspiration precautions Keep head of bed above 30 Facilitate sputum for culture Treat fever aggressively Monitor temperature curve CBC, CMP, magnesium level daily Nephrology consult in a.m. HPI: 64-year-old female with past medical history of ESRD with left AV fistula with HD scheduled Saturday/Saturday/Saturday, hypertension, hyperlipidemia, DM type who presented to ED via private vehicle with complaint of worsening shortness of breath, cough, and pleuritic chest pain and found to have hospital- acquired pneumonia. Apparently patient underwent hemodialysis this morning, however they were not able to finish her session due to worsening shortness of breaths. Thet approximately remove 2.4 L off her. Son then brought patient to ED for further medical evaluation. In ED chest x-ray was done and showed right upper lobe infiltrates, CTA of the chest did not reveal any pulmonary embolism however there is bilateral infiltrates. Her initial ABG showed mild hypoxemia, Her CBC is significant [place] [address], her chemistry is consistent with chronic kidney disease, with normal potassium and sodium level, initial lactic acid of 3.9, troponin level of 19, and a D-dimer level of 4762. In ED patient was initiated on IV antibiotics and was placed on O2 therapy. At present patient is currently hemodynamically stable, on O2 therapy with O2 saturation at 97%, patient is lethargic however she is arousable and able to answer questions appropriately. Patient denies any headache, fever, phlegm, abdominal pain, however she is complaining of shortness of breaths, pleuritic chest pain, and generalized body weakness. Patient also denies any alcohol, smoking history, or illicit drug use. Patient does not take flu shot or COVID vaccine. PAST MEDICAL HX: see above PAST SURGICAL HX: noncontributory SOCIAL HISTORY: No tobacco, ETOH, or illicit drug use Coded Allergies: No Known Drug Allergies (Verified Allergy, Unknown, 05/05/18) REVIEW OF SYSTEMS: 12 point ROS reviewed with patient. Pertinent positives mentioned above. Otherwise negative. PHYSICAL EXAM: GENERAL: Sleepy, weak, awake oriented x 3 HEENT: EOMI, Sclera non icteric, moist mucosa NECK: Supple, no JVD, trachea midline LUNGS: Coarse bilateral lung sounds HEART: Regular rate and rhythm. Normal S1 and S2, without murmurs ABD: Abdomen soft, nontender. Bowel sounds present EXT: No clubbing cyanosis or edema, left AV fistula NEURO: Sleepy and oriented to person, follows commands Vital Signs (last 8hr) Date Time Temp Pulse Resp B/P (MAP) Pulse Ox O2 Delivery O2 Flow Rate FiO2 08/07/24 18:18 94 16 106/34 95 Nasal Cannula* 2 28 08/07/24 17:08 96 20 120/31 97 Nasal Cannula* 2 28 08/07/24 15:20 109 20 139/47 94 Nasal Cannula* 2 28 08/07/24 13:37 121 20 144/73 97 Nonrebreathing Mask 8.0 LABS: Hematology Labs: Test 08/07/24 14:28 Range/Units White Blood Count 11.5 H 4.8-10.8 K/uL Red Blood Count 4.01 4.00-5.50 MIL/uL Hemoglobin 12.2 12.0-16.0 g/dL Hematocrit 38.5 36-48 % Mean Corpuscular Volume 96.0 79-99 fL Mean Corpuscular Hemoglobin 30.4 27.0-33.0 pg Mean Corpuscular Hemoglobin Concent 31.7 L 32.0-36.0 g/dL Red Cell Distribution Width 15.0 11.0-15.5 % Platelet Count 123 L 130-400 K/uL Mean Platelet Volume 10.9 H 7.5-10.5 fL Immature Granulocyte % (Auto) 0.3 0-1 % Neutrophils (%) (Auto) 86.6 H 40.0-77.0 % Lymphocytes (%) (Auto) 5.0 L 21.0-51.0 % Monocytes (%) (Auto) 5.7 3.0-13.0 % Eosinophils (%) (Auto) 1.5 0.0-8.0 % Basophils (%) (Auto) 0.9 0.0-5.0 % Neutrophils # (Auto) 10.0 H 1.8-7.7 K/uL Lymphocytes # (Auto) 0.6 L 1.0-4.8 K/uL Monocytes # (Auto) 0.7 0.1-1.0 K/uL Eosinophils # (Auto) 0.17 0.00-0.70 K/uL Basophils # (Auto) 0.10 0.00-0.20 K/uL Absolute Immature Granulocyte (auto 0.04 0-1 K/uL Nucleated Red Blood Cells 0.0 0.0-0.19 % White Cell Morphology Comment See comments Chemistry Labs: Test 08/07/24 18:05 08/07/24 16:46 08/07/24 14:28 Range/Units Whole Blood Glucose 339 H 70-110 MG/DL Bedside Glucose Comment Notified Nurse Lactic Acid Level 3.6 H 0.8-2.5 mmol/L Procalcitonin 0.52 H 0.05-0.5 ng/mL Sodium Level 136 136-145 mmol/L Potassium Level 3.9 3.5-5.1 mmol/L Chloride Level 94 L 101-111 mmol/L Carbon Dioxide Level 31 21-32 mmol/L Blood Urea Nitrogen 14 7-18 mg/dL Creatinine 3.3 H 0.5-1.0 mg/dL Glomerular Filtration Rate Calc 15 >90 mL/min Random Glucose 279 H 70-105 mg/dL Total Calcium 7.9 L 8.5-10.1 mg/dL Troponin I High Sensitivity 19 4-50 ng/L B-Type Natriuretic Peptide 2450 H 0-100 pg/mL Coagulation Labs: Test 08/07/24 14:28 Range/Units D-Dimer Quantitative (PE/DVT) 4762 *H 0-500 ng/mL DIAGNOSTICS / RADIOLOGY RESULTS: CT CHEST WWO PE HISTORY: Hypoxia COMPARISON: 05/11/2024 TECHNIQUE: CT angiography of the chest was performed. The study was performed using angiographic technique with maximum intensity projection reconstruction images. Patient was given 100 cc of Omnipaque through intravenous route. FINDINGS: No CT evidence of filling defect is seen to suggest pulmonary embolus. No CT evidence of aortic dissection is seen. Bilateral pulmonary infiltrates are seen. There is anasarca. There is small ascites. Fatty changes of the liver are noted. No CT evidence of pleural effusion or pericardial effusion is seen. The heart is enlarged. No evidence of adrenal mass is seen. Degenerative changes of the spine are noted. IMPRESSION: 1. No CT evidence of acute pulmonary embolus is seen. Bilateral pulmonary infiltrates. Small ascites and anasarca. CT was performed with one or more following dose reduction techniques: automated exposure control, adjustment of the mA and kv according to patient's size, or use of a iterative reconstruction technique. CHEST 1VW REASON: SOB COMPARISON: 07/28/2024 FINDINGS: Left lung is clear. Heart size is stable with no vascular congestion. IMPRESSION: 1. Confluent infiltrate in the right upper lobe consistent with pneumonia. PLAN NEURO: Minimize central acting medications as possible. Maintain fall precautions, adequate lighting during the day PULMONARY: Supplemental 02 as needed. Maintain aspiration precautions at all times CARDIOVASCULAR: Follow hemodynamics. Vital signs per facility protocol GI & NUTRITION: Continue with nutritional support. Continue stool softeners and laxatives as needed. KIDNEYS & ELECTROLYTES: Strict monitoring of intake, output and overall fluid balance. Avoid nephrotoxic medications to the extent possible. Medications to be dosed according to renal function. Monitor electrolytes and replace as needed ENDOCRINE: Maintain blood glucose between 100-180 at all times. Hypoglycemia protocol in place INFECTIOUS DISEASE: Trend temperature, WBC and procalcitonin level Follow cultures, deescalate antibiotics as soon as possible. Panculture if new onset fever ONCOLOGY/HEMATOLOGY/COAGULATION: Monitor for s/s of bleeding Monitor hemoglobin, coagulation studies as needed SKIN: Pressure ulcer prevention per facility protocol Specialty mattress ORTHO/REHAB: Continue PT/OT Prophylaxis: Continue GI and DVT prophylaxis Code Status: Full Resuscitation Disposition: TBD Other: Total patient care time exceeds 35 minutes excluding all procedures. Supervising physician: FARSHAD Castillo APRN Aug 07, 2024 19:07
--- NOTE | 2024-08-07 19:14 | NUR ---
PT CARE ASSUMED AT THIS TIME
[2024-08-07] MEDS: ZOSYN 3.375GM +NS 50ML IV SCH (20:27)
[2024-08-07] MEDS: INSULIN humuLIN R 100 UNIT/ML 3ML SQ SCH (20:29)
[2024-08-07] MEDS: HEParin 5,000 UNIT VIAL SQ SCH (20:30)
--- NOTE | 2024-08-07 21:03 | NUR ---
BUTTER MAKER PROVIDER PAGED AT THIS TIME REGAURDING LACTIC ACID RESULT. PENDING CALL BACK.
[2024-08-07] MEDS: ondanSETRON 4MG INJ IVP PRN (21:10)
--- NOTE | 2024-08-07 21:21 | NUR ---
COMMERCIAL COUNSEL FARSHAD BRAND CALLED BACK AT THIS TIME.
[2024-08-07 21:48] VITALS: PULSE 90; RESP 18; O2SAT 98
[2024-08-07] MEDS: IpraTROPium/alBUTERol SULFATE 3 ML SOLUTION IH SCH (21:48)
[2024-08-07] MEDS: SODIUM CHLORIDE 3% FOR INHALATION 4 ML/AMP VIAL.NEB IH ONE (22:02)
--- NOTE | 2024-08-07 22:55 | NUR ---
SKIN PROTECTANT APPLIED TO THE BUTTOCKS AT THIS TIME TO PREVENT SKIN BREAKDOWN.
--- NOTE | 2024-08-07 23:12 | NUR ---
REPORT GIVEN TO CHU HAIDER AT THIS TIME Addendum: 08/07/24 at 2322 by [email or web address] REPORT GIVEN TO MINOO HAIDER AT THIS TIME
--- NOTE | 2024-08-07 23:48 | NUR ---
MEDICATION RECONCILIATION NOT DONE AT THIS TIME. HOME MEDS NOT AT BEDSIDE. PT WAS EDUCATED ABOUT THE IMPORTANCE OF MEDICATION RECONCILIATION. PT VERBILIZED UNDERSTANDING.
[2024-08-08] VITALS (24 sets, daily range): BP systolic 96–135; BP diastolic 40–64; PULSE 54–93; RESP 14–20; TEMP 97.6–98.9; O2SAT 94–100
[2024-08-08] MEDS: acetylCYSTeine 20% 200MG/ML 4ML VIAL NEB SCH (02:55)
[2024-08-08 05:25] LABS: BASOPHILS # (AUTO) 0.14 K/uL (0.00-0.20); BASOPHILS % (AUTO) 0.8 % (0.0-5.0); HEMATOCRIT 30.9 % (36-48); LYMPHOCYTES # (AUTO) 0.9 K/uL (1.0-4.8); LYMPHOCYTES % (AUTO) 5.1 % (21.0-51.0); MEAN CORPUSCULAR HEMOGLOBIN 30.4 pg (27.0-33.0); MEAN CORPUSCULAR HGB CONC 31.7 g/dL (32.0-36.0); MONOCYTES # (AUTO) 1.7 K/uL (0.1-1.0); MONOCYTES % (AUTO) 9.6 % (3.0-13.0); NEUTROPHILS # (AUTO) 14.6 K/uL (1.8-7.7); NEUTROPHILS % (AUTO) 83.9 % (40.0-77.0); PLATELET COUNT (AUTO) 111 K/uL (130-400); RED BLOOD CELL COUNT(AUTO) 3.22 MIL/uL (4.00-5.50); RED CELL DISTRIBUTION WIDTH 15.2 % (11.0-15.5); WHITE BLOOD COUNT (AUTO) 17.4 K/uL (4.8-10.8)
[2024-08-08 05:38] LABS: CREATININE 4.1 mg/dL (0.5-1.0); MAGNESIUM 1.8 mg/dL (1.80-2.40); PHOSPHORUS 4.1 mg/dL (2.5-4.9); POTASSIUM 4.1 mmol/L (3.5-5.1)
[2024-08-08] MEDS: SODIUM CHLORIDE 3% FOR INHALATION 4 ML/AMP VIAL.NEB IH ONE ×2 (06:27→09:56)
[2024-08-08] MEDS: PANTOPrazole 40 MG TAB DR PO SCH (08:28)
[2024-08-08] MEDS: ASCORBIC ACID 500 MG TAB PO SCH (08:28)
[2024-08-08] MEDS: polyETHYLene GLYCol 3350 17 GM POWD.PACK PO SCH (08:32)
[2024-08-08] MEDS: miDODRine HCL 5 MG TABLET PO SCH (13:23)
[2024-08-08] MEDS: 0.9%NACL 1000ML 1,000 ML IV SCH (13:26)
[2024-08-08] MEDS: ALBUMIN (HUMAN) 25% 50 ML IV.SOLN. IV SCH (15:25)
--- NOTE | 2024-08-08 15:46 | PN ---
[facility] PROGRESS NOTE Date Patient Seen: Aug 08, 2024 Time of Visit: 15:44 Supervising Physician: Dr. Jonny Cifuentes Primary Care Physician: Dr Schmidt Outpatient Specialists: Dr Watkins Inpatient Consults: [ ] PROBLEM LIST: Acute hypoxic respiratory failure, likely related to pneumonia, CTA of chest negative for embolism, POA Hospital-acquired pneumonia, patient goes to HD center 3 times per week, POA ESRD, with left AV fistula, HD schedule Saturday, Saturday, Saturday, POA Lactic acidosis, initial level at 3.9, POA DM type 2 with hyperglycemia, poorly controlled, POA Hypertension, POA Hyperlipidemia, POA PLAN: Admit to PCCU VS per unit protocol Complete bedrest for now Continue O2 therapy, keep sat above 90% DuoNeb q.6 Mucomyst b.i.d. Start Zosyn IV q.12 hours for hospital acquired pneumonia Trend lactic acid level Incentive spirometry Renal diet Aspiration precautions Keep head of bed above 30 Facilitate sputum for culture Treat fever aggressively Monitor temperature curve CBC, CMP, magnesium level daily Nephrology consult in a.m. INTERVAL HISTORY: Patient evaluated at bedside, she is currently on 2 L nasal cannula with moderate respiratory distress, review of radiology shows multifocal pneumonia, right greater than left. Patient was ESRD on hemodialysis Saturday, she missed her dialysis session yesterday therefore nephrology has scheduled her for dialysis today. Lactic acidosis at the time is 3.9. Patient's white count is 17.4, hemoglobin is 9.8. She is currently on Zosyn and azithromycin antibiotic therapy for likely healthcare associated pneumonia. We will continue to monitor the patient's respiratory status and progress throughout the admission, pending evaluation of labs tomorrow morning after hemodialysis session today. REVIEW OF SYSTEMS: 12 point ROS reviewed with patient. Pertinent positives mentioned above. Otherwise negative. PHYSICAL EXAM: GENERAL: Sleepy, weak, awake oriented x 3 HEENT: EOMI, Sclera non icteric, moist mucosa NECK: Supple, no JVD, trachea midline LUNGS: Coarse bilateral lung sounds HEART: Regular rate and rhythm. Normal S1 and S2, without murmurs ABD: Abdomen soft, nontender. Bowel sounds present EXT: No clubbing cyanosis or edema, left AV fistula NEURO: Sleepy and oriented to person, follows commands Vital Signs (last 8hr) Date Time Temp Pulse Resp B/P (MAP) Pulse Ox O2 Delivery O2 Flow Rate FiO2 08/08/24 14:15 97.5 93 16 97/41 Nasal Cannula 2.0 08/08/24 14:02 83 18 08/08/24 12:00 97.5 67 17 99/45 100 Nasal Cannula 2.0 08/08/24 09:57 82 18 N/Cannula Low lpm 2.0 28 08/08/24 09:56 82 18 08/08/24 08:30 97.5 91 18 111/64 93 Room Air 21 08/08/24 08:15 Nasal Cannula* 2 28 LABS: Hematology Labs: Test 08/08/24 04:44 08/07/24 14:28 Range/Units White Blood Count 17.4 #H 4.8-10.8 K/uL Red Blood Count 3.22 L 4.00-5.50 MIL/uL Hemoglobin 9.8 L 12.0-16.0 g/dL Hematocrit 30.9 L 36-48 % Mean Corpuscular Volume 96.0 79-99 fL Mean Corpuscular Hemoglobin 30.4 27.0-33.0 pg Mean Corpuscular Hemoglobin Concent 31.7 L 32.0-36.0 g/dL Red Cell Distribution Width 15.2 11.0-15.5 % Platelet Count 111 L 130-400 K/uL Mean Platelet Volume 10.9 H 7.5-10.5 fL Immature Granulocyte % (Auto) 0.6 0-1 % Neutrophils (%) (Auto) 83.9 H 40.0-77.0 % Lymphocytes (%) (Auto) 5.1 L 21.0-51.0 % Monocytes (%) (Auto) 9.6 3.0-13.0 % Eosinophils (%) (Auto) 0.0 0.0-8.0 % Basophils (%) (Auto) 0.8 0.0-5.0 % Neutrophils # (Auto) 14.6 H 1.8-7.7 K/uL Lymphocytes # (Auto) 0.9 L 1.0-4.8 K/uL Monocytes # (Auto) 1.7 H 0.1-1.0 K/uL Eosinophils # (Auto) 0.00 0.00-0.70 K/uL Basophils # (Auto) 0.14 0.00-0.20 K/uL Absolute Immature Granulocyte (auto 0.10 0-1 K/uL Nucleated Red Blood Cells 0.0 0.0-0.19 % White Cell Morphology Comment See comments Chemistry Labs: Test 08/08/24 10:53 08/08/24 04:44 08/07/24 20:43 08/07/24 18:05 Range/Units Whole Blood Glucose 206 H 70-110 MG/DL Sodium Level 136 136-145 mmol/L Potassium Level 4.1 3.5-5.1 mmol/L Chloride Level 96 L 101-111 mmol/L Carbon Dioxide Level 28 21-32 mmol/L Blood Urea Nitrogen 20 H 7-18 mg/dL Creatinine 4.1 H 0.5-1.0 mg/dL Glomerular Filtration Rate Calc 12 >90 mL/min Random Glucose 314 H 70-105 mg/dL Total Calcium 7.5 L 8.5-10.1 mg/dL Phosphorus Level 4.1 2.5-4.9 mg/dL Magnesium Level 1.80 1.80-2.40 mg/dL Lactic Acid Level 2.2 0.8-2.5 mmol/L Bedside Glucose Comment Notified Nurse Test 08/07/24 16:46 08/07/24 14:28 Range/Units Procalcitonin 0.52 H 0.05-0.5 ng/mL Troponin I High Sensitivity 19 4-50 ng/L B-Type Natriuretic Peptide 2450 H 0-100 pg/mL Coagulation Labs: Test 08/07/24 14:28 Range/Units D-Dimer Quantitative (PE/DVT) 4762 *H 0-500 ng/mL DIAGNOSTICS / RADIOLOGY RESULTS: [ ] PLAN NEURO: Minimize central acting medications as possible. Maintain fall precautions, adequate lighting during the day PULMONARY: Supplemental 02 as needed. Maintain aspiration precautions at all times CARDIOVASCULAR: Follow hemodynamics. Vital signs per facility protocol GI & NUTRITION: Continue with nutritional support. Continue stool softeners and laxatives as needed. KIDNEYS & ELECTROLYTES: Strict monitoring of intake, output and overall fluid balance. Avoid nephrotoxic medications to the extent possible. Medications to be dosed according to renal function. Monitor electrolytes and replace as needed ENDOCRINE: Maintain blood glucose between 100-180 at all times. Hypoglycemia protocol in place INFECTIOUS DISEASE: Trend temperature, WBC and procalcitonin level Follow cultures, deescalate antibiotics as soon as possible. Panculture if new onset fever ONCOLOGY/HEMATOLOGY/COAGULATION: Monitor for s/s of bleeding Monitor hemoglobin, coagulation studies as needed SKIN: Pressure ulcer prevention per facility protocol Specialty mattress ORTHO/REHAB: Continue PT/OT Prophylaxis: Continue GI and DVT prophylaxis Code Status: Full Resuscitation Disposition: TBD Other: Total patient care time exceeds 35 minutes excluding all procedures. CHANTELL SANDOVAL Aug 08, 2024 15:45
[2024-08-08] MEDS: EPOETIN ALFA-EPBX (NON-ESRD) 10,000 UNIT/ML VIAL SQ SCH (17:37)
--- NOTE | 2024-08-08 21:39 | CONS ---
REFERRING PHYSICIAN: Dr. Cifuentes. REASON FOR CONSULTATION: Respiratory failure, pneumonia. HISTORY OF PRESENT ILLNESS: A 64-year-old female with a history of diabetes mellitus and hypertension. The patient presented to the hospital with increasing shortness of breath and orthopnea. In the Emergency Room, the patient was found to have underlying pneumonia, was started on broad-spectrum IV antibiotics. She has a history of end-stage renal disease, on dialysis 3 times per week. The patient did not receive her dialysis on 08/07/2024. Secondary to all of the above, she is being seen for urgent dialysis. PAST MEDICAL HISTORY: Diabetes mellitus, hypertension, coronary artery disease and ESRD. PAST SURGICAL HISTORY: AV access. SOCIAL HISTORY: She lives independently. There is no active tobacco use. FAMILY HISTORY: There is no renal disease in the family. ALLERGIES: There are no allergies. MEDICATIONS: Noted. REVIEW OF SYSTEMS: GENERAL: She is feeling weak and tired. HEENT: No change in vision. No change in hearing, no nasal discharge, no sore throat. CARDIOVASCULAR: There is no current chest pain or palpitation. PULMONARY: As described above. GASTROINTESTINAL: The patient is tolerating a diet. MUSCULOSKELETAL: Complains of weakness. NEUROLOGIC: No seizures or focal deficits. PSYCHIATRIC: No history of hallucinations or psychosis. ENDOCRINE: Diabetes mellitus. No history of thyroid disease. HEME: History of anemia. No history of malignancy. PHYSICAL EXAMINATION: VITAL SIGNS: Blood pressure 99/45, pulse 60s. GENERAL: She is a chronically ill female, older than appearing. HEENT: Head is atraumatic. Pupils equal, roving to light. Oropharynx is without exudate. Nares clear. NECK: There is no JVP. There is no thyromegaly, no mass. CARDIOVASCULAR: Regular. There is no S3, S4 gallop. LUNGS: Coarse with equal thoracic movement. ABDOMEN: Soft, nondistended, nontender. EXTREMITIES: Reveal no clubbing, no cyanosis. NEUROLOGICAL: She is awake. She is alert. She is oriented. SKIN: Reveals no rash or nodules. BACK: There is no CVA tenderness or back deformities. LABORATORY DATA: Hemoglobin 9.8, hematocrit 30, white cell count 17,000. BUN 20, creatinine is 4. Chest x-ray is consistent with pneumonia. IMPRESSION: * Pneumonia. * Respiratory distress. * Hypotension. * End-stage renal disease. PLAN: The patient has been started on the broad-spectrum IV antibiotics. The patient also with the aggressive pulmonary toilet. The patient will receive dialysis on the day of this consultation and then continue on a Saturday, Saturday, Saturday schedule. The patient will be given a dose of erythropoietin injections for the anemia. The patient with underlying hypotension and will be started on midodrine 5 mg t.i.d. All labs can be repeated in the a.m. The patient and family at the bedside. Multiple questions were answered. TID: [id number] RECEIPT: [id number]
[2024-08-09] VITALS (7 sets, daily range): BP systolic 90–102; BP diastolic 50–55; PULSE 56–85; RESP 18–20; TEMP 97.7–98.5; O2SAT 100
[2024-08-09 03:57] LABS: HEMATOCRIT 33.1 % (36-48); MEAN CORPUSCULAR HEMOGLOBIN 30.7 pg (27.0-33.0); MEAN CORPUSCULAR HGB CONC 31.7 g/dL (32.0-36.0); MEAN CORPUSCULAR VOLUME 96.8 fL (79-99); RED BLOOD CELL COUNT(AUTO) 3.42 MIL/uL (4.00-5.50); RED CELL DISTRIBUTION WIDTH 15.5 % (11.0-15.5); WHITE BLOOD COUNT (AUTO) 14.3 K/uL (4.8-10.8)
[2024-08-09 04:09] LABS: POTASSIUM 4.3 mmol/L (3.5-5.1)
--- NOTE | 2024-08-09 11:30 | NUR ---
BLOOD GLUCOSE 372. COVERED WITH 14 UNITS OF HUMULIN R, FOLLOWING INSULIN SCALE IN PATIENTS E-MAR.
[2024-08-09] MEDS ORDERED: LEVO750T68 PO (11:31)
--- NOTE | 2024-08-09 11:49 | NUR ---
did not give heparin due to low platelets.
--- NOTE | 2024-08-09 13:30 | NUR ---
PATIENT WITH DISCHARGE ORDERS. EDUCATED PATIENT ON DIET RESTRICTIONS, FOLLOW UP APPOINTMENTS, AND HOME MEDICATIONS. PATIENT VERBALIZED UNDERSTANDING.
--- NOTE | 2024-08-09 14:20 | NUR ---
PATIENT LEFT VIA WHEELCHAIR, LEFT IN PRIVATE CAR WITH FAMILY MEMBERS.
--- NOTE | 2024-08-09 14:47 | DS ---
[facility] DISCHARGE SUMMARY Date Patient Seen: Aug 09, 2024 Time of Visit: 14:47 Supervising Physician: Dr. Jonny Cifuentes Primary Care Physician: Dr Schmidt Outpatient Specialists: Dr Watkins Inpatient Consults: [ ] HOSPITAL COURSE: HPI (per admitting provider) 64-year-old female with past medical history of ESRD with left AV fistula with HD scheduled Saturday/Saturday/Saturday, hypertension, hyperlipidemia, DM type who presented to ED via private vehicle with complaint of worsening shortness of breath, cough, and pleuritic chest pain and found to have hospital- acquired pneumonia. Apparently patient underwent hemodialysis this morning, however they were not able to finish her session due to worsening shortness of breaths. Thet approximately remove 2.4 L off her. Son then brought patient to ED for further medical evaluation. In ED chest x-ray was done and showed right upper lobe infiltrates, CTA of the chest did not reveal any pulmonary embolism however there is bilateral infiltrates. Her initial ABG showed mild hypoxemia, Her CBC is significant for WBC of more than 00616, her chemistry is consistent with chronic kidney disease, with normal potassium and sodium level, initial lactic acid of 3.9, troponin level of 19, and a D-dimer level of 4762. In ED patient was initiated on IV antibiotics and was placed on O2 therapy. At present patient is currently hemodynamically stable, on O2 therapy with O2 saturation at 97%, patient is lethargic however she is arousable and able to answer questions appropriately. Patient denies any headache, fever, phlegm, abdominal pain, however she is complaining of shortness of breaths, pleuritic chest pain, and generalized body weakness. Patient also denies any alcohol, smoking history, or illicit drug use. Patient does not take flu shot or COVID v accine. The patient was treated for the following problems: ACTIVE PROBLEM LIST FOR THE HOSPITALIZATION: Acute hypoxic respiratory failure, likely related to pneumonia, CTA of chest negative for embolism, POA Hospital-acquired pneumonia, patient goes to HD center 3 times per week, POA, treateing, outpatient oral antibiotics ESRD, with left AV fistula, HD schedule Saturday, Saturday, Saturday, POA Lactic acidosis, initial level at 3.9, POA, improved following HD session CHRONIC PROBLEMS: continue previous management per PCP unless otherwise indicated DM type 2 with hyperglycemia, poorly controlled, POA Hypertension, POA Hyperlipidemia, POA ROOM SERVICE WAITER FINDINGS/RECOMMENDATIONS: [ ] PROCEDURES: as mentioned above DISCHARGE MEDICATIONS: Pt hemodynamically stable and afebrile at time of discharge. PCP notified of patients admission, hospital course and discharge. PHYSICAL EXAM: GENERAL: Sleepy, weak, awake oriented x 3 HEENT: EOMI, Sclera non icteric, moist mucosa NECK: Supple, no JVD, trachea midline LUNGS: Coarse bilateral lung sounds HEART: Regular rate and rhythm. Normal S1 and S2, without murmurs ABD: Abdomen soft, nontender. Bowel sounds present EXT: No clubbing cyanosis or edema, left AV fistula NEURO: Sleepy and oriented to person, follows commands FOLLOW-UP: Follow-up with PCP in 2-3 days RECOMMENDATIONS: See Discharge Instructions This case was seen and discussed with my supervising physician. More than 30 minutes spent on discharge process, including evaluation of the patient, discussion with nursing staff, medication reconciliation and follow-up appointments CHANTELL SANDOVAL Aug 09, 2024 14:47
--- NOTE | 2024-08-09 18:59 | PN ---
FOLLOWUP PROGRESS NOTE SUBJECTIVE: A 64-year-old female with a history of diabetes mellitus and hypertension. She has a history of end-stage renal disease, on dialysis 3 times per week. The patient presented to the hospital with increasing shortness of breath, orthopnea. The patient has had very similar admissions in the past. The patient did receive dialysis yesterday without difficulty. The patient with 2.7 L of ultrafiltration, and pulmonary symptoms have greatly improved. She has had multiple admissions with very similar issues. She is being seen as a followup visit. REVIEW OF SYSTEMS: GENERAL: She is feeling improved. HEENT: No change in vision. No change in hearing. CARDIOVASCULAR: No current chest pains or palpitations. PULMONARY: As described above. GASTROINTESTINAL: She is tolerating a diet. MUSCULOSKELETAL: Complains of weakness. OBJECTIVE: VITAL SIGNS: Blood pressure 102/50, pulse in the 80s GENERAL: A chronically ill female, elderly, lying in bed on the medical floor. HEENT: Head is atraumatic. Pupils are equal, roving to light. Oropharynx is without exudate. Nares are clear. NECK: There is no JVP. There is no thyromegaly, no mass. CARDIOVASCULAR: Regular. There is no S3, S4 gallop. LUNGS: Coarse with equal thoracic movement. ABDOMEN: Soft, nondistended, nontender. EXTREMITIES: No clubbing, no cyanosis. NEUROLOGIC: She is awake. She is alert. LABORATORY DATA: Hemoglobin 10, hematocrit 33, white cell count 14,000. IMPRESSION: * Volume overload with respiratory distress. * Diabetes mellitus. * Hypotension. * End-stage renal disease. PLAN: The patient's pulmonary symptoms have greatly improved. I have discussed with the patient not only during this admission, but previously in regard to her poor compliance. The patient can safely be discharged from a renal standpoint. If the patient is discharged, she will follow up at the dialysis unit. TID: [id number] RECEIPT: [id number]
== END 2024-08-09 14:10 | disposition home or self-care (01) ==
LOC: EDH 13:36 → EDHIP 19:00 → 4BH 23:20
PROVIDERS: ADMIT Internal Medicine Critical Care Medicine; ATTEND Internal Medicine Critical Care Medicine
DX: J96.01 Acute respiratory failure with hypoxia (principal); Z20.822 Contact with and (suspected) exposure to COVID-19; I12.0 Hypertensive chronic kidney disease with stage 5 chronic kidney disease or end stage renal disease; E11.22 Type 2 diabetes mellitus with diabetic chronic kidney disease; N18.6 End stage renal disease; J18.9 Pneumonia, unspecified organism; E87.20 Acidosis, unspecified; E78.5 Hyperlipidemia, unspecified; E87.70 Fluid overload, unspecified; I95.9 Hypotension, unspecified; E11.65 Type 2 diabetes mellitus with hyperglycemia; I25.10 Atherosclerotic heart disease of native coronary artery without angina pectoris; Z99.2 Dependence on renal dialysis; Z90.49 Acquired absence of other specified parts of digestive tract; Z98.890 Other specified postprocedural states; Z79.899 Other long term (current) drug therapy; Z79.4 Long term (current) use of insulin
CPT/HCPCS: 96372 ×3; 96365; 96375; 82435; 82947; 84132; 84295; 85018; 82948 ×9; 83605 ×3; 96366 ×4; 96367 ×2; 96368; 99285; 84484; 80048 ×3; 82803; 83880; 85025 ×2; 85378; 87040 ×2; 87804 ×2; 36415 ×3; 87635; 71045; 71270; 93005; 36600 ×2; 84145 ×2; 96361; 83735; 84100; 94640; 90935; 85027; J1815 ×3; G0378 ×40; J0696; J2405; J2543 ×5; J0456 ×2; J1644 ×5; Q9967; P9047; Q5106; 94664; G0257

== ENCOUNTER 2024-12-09 16:13 | Emergency (ER) | payer OTHER, MEDICARE ==
[~2024-12-09] VITALS: Ht 152.4 cm; Wt 55.8 kg
[~2024-12-09 16:13] MED LIST changes: -INSLAN SQ; +INSU100V3 IJ; -INSU100V3 SQ; +INSU3INS3 SQ; -PANT40TA54 PO; -SERT-439 PO; -SITA25TA5 PO; -SUCR500T PO; -TRAZ-185 PO; +[UNRECOGNIZED DRUG - CODE] TP
[2024-12-09 17:35] LABS: BASOPHILS # (AUTO) 0.23 K/uL (0.00-0.20); EOSINOPHILS # (AUTO) 0.25 K/uL (0.00-0.70); EOSINOPHILS % (AUTO) 3.2 % (0.0-8.0); HEMATOCRIT 28.2 % (36-48); IMMATURE GRANULOCYTE ABSOLUTE 0.03 K/uL (0-1); LYMPHOCYTES # (AUTO) 1.1 K/uL (1.0-4.8); LYMPHOCYTES % (AUTO) 14.4 % (21.0-51.0); MEAN CORPUSCULAR HGB CONC 30.5 g/dL (32.0-36.0); MEAN CORPUSCULAR VOLUME 94.9 fL (79-99); MONOCYTES # (AUTO) 1.4 K/uL (0.1-1.0); MONOCYTES % (AUTO) 18.3 % (3.0-13.0); NEUTROPHILS # (AUTO) 4.7 K/uL (1.8-7.7); NEUTROPHILS % (AUTO) 60.7 % (40.0-77.0); PLATELET COUNT (AUTO) 145 K/uL (130-400); RED BLOOD CELL COUNT(AUTO) 2.97 MIL/uL (4.00-5.50); RED CELL DISTRIBUTION WIDTH 17.6 % (11.0-15.5); WHITE BLOOD COUNT (AUTO) 7.8 K/uL (4.8-10.8)
[2024-12-09 17:43] LABS: CREATININE 1.4 mg/dL (0.5-1.0)
[2024-12-09 17:50] LABS: POTASSIUM 2.5 mmol/L (3.5-5.1)
--- NOTE | 2024-12-09 18:28 | ERN ---
General Chief Complaint: Hypoglycemia Stated Complaint: HYPOGLYCEMIA Time Seen by MD: 16:17 Source: patient History of Present Illness Initial Comments SEE 64-YEAR-OLD FEMALE HISTORY OF DIABETES AND END-STAGE RENAL DISEASE COMING IN DUE TO LOW BLOOD GLUCOSE. PATIENT STATES THAT SHE WAS BEING DIALYZED THEY GAVE HER TOO MUCH INSULIN SHE STATES HE FELT VERY WEAK THEY CHECKED HER SUGAR AND IT WAS LOW THEY GAVE HER SOMETHING TO EAT AND FELL GOOD AFTER THAT. EMS BROUGHT PATIENT IN FOR FURTHER EVALUATION. Allergies: Coded Allergies: No Known Drug Allergies (Verified Allergy, Unknown, 05/05/18) Home Meds Active Scripts Insulin Regular, Human (Humulin R) 100 Unit/Ml Vial, 0 IJ TIDAC, #1 VIAL Inject 3 Units three times daily before meals Prov:CHANTELL SANDOVAL 09/19/24 Midodrine HCl (Midodrine HCl) 10 Mg Tablet, 1 TAB PO TID for 30 Days, #90 TAB 0 Refills Prov:NASRIN ESTEVEZ 07/28/24 Reported Medications Insulin Glargine,Hum.rec.anlog (Lantus Solostar) 100 Unit/Ml (3 Ml) Insuln.pen, 5 UNIT SQ AM for 30 Days, #5 ML 0 Refills 11/15/24 Triamcinolone Acetonide (Kenalog-Hp/Aristocort-Hp 0.5% Cream) 0.5 % Crm, 1 APPL TP BID 11/15/24 Famotidine (Famotidine) 20 Mg Tablet, 1 TAB PO QODAY for 30 Days, #60 TAB 0 Refills 05/04/24 Cholecalciferol (Vitamin D3) (Vitamin D3) 50 Mcg (2000 Unit) Capsule, 50 MCG PO DAILY, CAP 02/10/24 Folic Acid/Vit Bcomp,C (Renal-Emmett Tablet) 0.8 Mg Tablet, 0.8 MG PO DAILY, TAB 02/10/24 Atorvastatin Calcium (LIPITOR) 40 Mg Tablet, 10 MG PO HS, TAB 02/10/24 Past Medical History Past Medical History: COPD, Diabetes-Type II, High Cholesterol, Hypertension, Renal Disese, Renal Failure Medical History Other: + COVID X 2, LUNG SCARRING.THORACENTESIS, RT LEG FX 01/2024 Past Surgical History: Cholecystectomy, LAVA Surgical History Other: LEFT LEG SX, LAVG Social History Social History: Negative, Lives with family Female( History) History: Not Applicable ROS Dictation CONSTITUTIONAL: NO CHILLS, NO FEVER, NO WEAKNESS, NO DIAPHORESIS, NO MALAISE. HEAD/FACE: NO SIGNS OF TRAUMA. EENT: NO EYE PAIN, NO BLURRED VISION, NO TEARING, NO DOUBLE VISION, NO EAR PAIN, NO EAR DISCHARGE, NO NOSE PAIN, NO NASAL CONGESTION, NO THROAT PAIN, NO THROAT SWELLING, NO MOUTH PAIN. RESPIRATORY: NO COUGH, NO ORTHOPNEA, NO SOB, NO STRIDOR, NO WHEEZING. CARDIOVASCULAR: NO CHEST PAIN, NO EDEMA, NO PALPITATIONS, NO SYNCOPE. GASTROINTESTINAL/ABDOMINAL: NO ABDOMINAL PAIN, NO CONSTIPATION, NO DIARRHEA, NO NAUSEA, NO VOMITING. GENITOURINARY: NO ABNORMAL DISCHARGE, NO DYSURIA, NO FREQUENT URINATION, NO HEMATURIA. NO COMPLAINTS OF PAIN IN THE GENITALS. MUSCULOSKELETAL: NO BACK PAIN, NO GOUT, NO JOINT PAIN, NO JOINT SWELLING, NO MUSCLE PAIN, NO MUSCLE STIFFNESS, NO NECK PAIN. INTEGUMENTARY: NO CHANGE IN COLOR, NO CHANGE IN HAIR/NAILS, NO DRYNESS, NO LESION, NO LUMPS, NO RASH. NEUROLOGICAL/PSYCH: NO ANXIETY, NOT DEPRESSED, NO EMOTIONAL PROBLEM, NO HEADACHE, NO NUMBNESS, NO PRE-EXISTING DEFICIT, NO HISTORY OF SEIZURES, NO TREMORS, NO WEAKNESS. HEMATOLOGIC/LYMPHATIC: NOT ANEMIC, NO HISTORY OF BLOOD CLOTS, NO APPARENT BLEEDING, NO BRUISING, GLANDS NOT SWOLLEN. ALL SYSTEMS NEGATIVE, EXCEPT NOTED. Physical Exam Physical Exam Dictation VITAL SIGNS: REVIEWED. GENERAL APPEARANCE: ALERT, ORIENTED X3, NO ACUTE DISTRESS, OBESE. HEAD AND FACE: NON-TRAUMATIC. EYES: PERRL, PINK CONJUNCTIVAS, EYELID NO TRAUMA, ANTERIOR CHAMBER CLEAR. EARS: PINNAS INTACT AND NO SIGNS OF TRAUMA OR ERYTHEMA. EAR CANALS CLEAR AND NO DISCHARGE. TMS NO ERYTHEMA. NOSE: NO DISCHARGE, NO BLEEDING. OROPHARYNX: MOUTH NORMAL, TEETH NO CARIES, TONGUE PINK. PHARYNX CLEAR, NO ERYTHEMA. TONSILS NO EXUDATES, NO ABSCESSES NOTED. MUCOUS MEMBRANE MOIST. NECK: SUPPLE, NON-TENDER, NO THYROMEGALY, NO MASSES, NO JVD, NO BRUITS. BREAST: DEFERRED. CHEST: NO TENDERNESS, NO CREPITUS, NO PARADOXICAL MOVEMENT, NO RETRACTIONS. LUNGS: CLEAR, WELL-VENTILATED, SYMMETRIC, NO RALES, NO WHEEZING, NO RHONCHI, NO STRIDOR, GOOD BREATH SOUNDS BILATERALLY. HEART: REGULAR RATE, REGULAR RHYTHM, NO MURMUR, NO GALLOPS. VASCULAR: NO PERIPHERAL EDEMA. ABDOMEN: SOFT, POSITIVE BOWEL SOUNDS, NONDISTENDED, NO GUARDING, NONTENDER, NO REBOUND, NO MASSES NO HEPATOMEGALY, NO SPLENOMEGALY, NO SMITH'S SIGN, NO HERNIAS. RECTAL: DEFERRED. GENITAL: DEFERRED. NEUROLOGICAL: NORMAL SPEECH, GROSS MOTOR FUNCTION INTACT, GROSS SENSORY FUNCTION INTACT. MUSCULOSKELETAL: NECK NONTENDER, FULL RANGE OF MOTION, BACK NONTENDER, FULL RANGE OF MOTION. EXTREMITIES: NONTENDER, FULL RANGE OF MOTION. SKIN: COLOR PINK, DRY, NO TURGOR, NO RASH, NO LACERATIONS, NO ABRASIONS, NO CONTUSIONS. LYMPHATICS: DEFERRED. Results Laboratory and Microbiology Lab and Micro Result Laboratory Tests Test 12/09/24 17:28 12/09/24 17:40 White Blood Count 7.8 K/uL (4.8-10.8) Red Blood Count 2.97 MIL/uL (4.00-5.50) L Hemoglobin 8.6 g/dL (12.0-16.0) L Hematocrit 28.2 % (36-48) L Mean Corpuscular Volume 94.9 fL (79-99) Mean Corpuscular Hemoglobin 29.0 pg (27.0-33.0) Mean Corpuscular Hemoglobin Concent 30.5 g/dL (32.0-36.0) L Red Cell Distribution Width 17.6 % (11.0-15.5) H Platelet Count 145 K/uL (130-400) Mean Platelet Volume 11.0 fL (7.5-10.5) H Immature Granulocyte % (Auto) 0.4 % (0-1) Neutrophils (%) (Auto) 60.7 % (40.0-77.0) Lymphocytes (%) (Auto) 14.4 % (21.0-51.0) L Monocytes (%) (Auto) 18.3 % (3.0-13.0) H Eosinophils (%) (Auto) 3.2 % (0.0-8.0) Basophils (%) (Auto) 3.0 % (0.0-5.0) Neutrophils # (Auto) 4.7 K/uL (1.8-7.7) Lymphocytes # (Auto) 1.1 K/uL (1.0-4.8) Monocytes # (Auto) 1.4 K/uL (0.1-1.0) H Eosinophils # (Auto) 0.25 K/uL (0.00-0.70) Basophils # (Auto) 0.23 K/uL (0.00-0.20) H Absolute Immature Granulocyte (auto 0.03 K/uL (0-1) Nucleated Red Blood Cells 0.0 % (0.0-0.19) White Cell Morphology Comment See comments Red Blood Cell Morphology See comments Sodium Level 137 mmol/L (136-145) Potassium Level 2.5 mmol/L (3.5-5.1) *L Chloride Level 95 mmol/L (101-111) L Carbon Dioxide Level 36 mmol/L (21-32) H Blood Urea Nitrogen 7 mg/dL (7-18) Creatinine 1.4 mg/dL (0.5-1.0) H Glomerular Filtration Rate Calc 42 mL/min (>90) Random Glucose 156 mg/dL (70-105) H Total Calcium 7.7 mg/dL (8.5-10.1) L Whole Blood Glucose 158 MG/DL (70-110) H Labs Reviewed?: Yes MDM MDM: DIFFERENTIAL DIAGNOSIS: HYPOGLYCEMIA, HYPOKALEMIA, RATIONALE: TESTS CONSIDERED AND ORDERED SECONDARY TO SHARED DECISION MAKING INCLUDE: PREVIOUS OUTSIDE RECORDS REVIEWED: OLD ER VISITS. RISK OF COMPLICATION AND/OR MORBIDITY OR MORTALITY OF PATIENT MANAGEMENT: NONE MEDICATIONS-PER MEDICATION RECONCILIATION NEED FOR HOSPITALIZATION: PATIENT DOES NOT MEET CRITERIA FOR HOSPITALIZATION. PATIENT IS A 64-YEAR-OLD DIABETIC WOMAN WITH A HISTORY OF END-STAGE RENAL DISEASE BEING DIALYZED AND STATES THAT THEY GAVE HER TOO MUCH INSULIN AND HER BLOOD GLUCOSE DROPPED. PATIENT WAS GIVEN ORAL GLUCOSE AND STATES HE FELT BETTER. PATIENT IS BROUGHT IN FOR FURTHER EVALUATION. UPON EVALUATION GLUCOSE HAS BEEN STABLE IN THE 150S. PATIENT GLUCOSE WAS RECHECKED AFTER 2 HOURS AND HAS BEEN STABLE. PATIENT WILL BE DISCHARGED IN STABLE CONDITION ED Course Orders Procedure Category Date Status Time Cbc With Differential LAB 12/09/24 Complete 17:11 Basic Metabolic Panel LAB 12/09/24 Complete 17:11 Potassium Chloride PHA 12/09/24 In Process 10meq/100ml (Potassiu 18:00 Potassium Bicarb/Cit PHA 12/09/24 Complete Ac 25meq (K-Lyte Ta 18:00 Magnesium LAB 12/09/24 Logged 17:54 Current Medications Medications (Trade) Dose Ordered Sig/Dakota Route PRN Reason Start Time Stop Time Status Last Admin Dose Admin Potassium Bicarbonate (K-Lyte Tablet Eff 25 Meq Tablet.eff) 50 meq ONCE ONCE PO 12/09/24 18:00 12/09/24 18:01 DC Potassium Chloride 100 ml @ 100 mls/hr ONCE ONCE IV 12/09/24 18:00 12/09/24 18:59 Vital Signs Date Time Temp Pulse Resp B/P (MAP) Pulse Ox O2 Delivery O2 Flow Rate FiO2 12/09/24 17:41 97.9 82 18 122/62 Room Air* 0 21 12/09/24 16:14 90 16 123/71 98 0 DX & DISP Disposition: Discharge Departure Impression: Primary Impression: End stage renal disease on dialysis Additional Impression: Hypoglycemia Condition: Stable Additional Instructions: FOLLOW-UP WITH PRIMARY CARE PROVIDER IN 1 TO 2 DAYS. TAKE MEDICATIONS DIRECTED HERE IN THE EMERGENCY ROOM. OKAY TO CONTINUE HOME MEDICATIONS UNLESS OTHERWISE DISCUSSED DURING YOUR VISIT IN THE EMERGENCY ROOM TODAY. RETURN TO YOUR NEAREST EMERGENCY ROOM IF SYMPTOMS WORSEN OR IF THERE IS NO IMPROVEMENT. CALL 911 IF YOU NEED IMMEDIATE ASSISTANCE. TAKE TYLENOL [id number] NEEDED AND IF NO CONTRAINDICATIONS ARE PRESENT. INCREASE ORAL HYDRATION. A WOUND CULTURE OR URINE CULTURE WAS ORDERED HERE IN THE EMERGENCY ROOM DEPARTMENT PLEASE FOLLOW-UP WITH PRIMARY CARE PROVIDER AND ADVISE THEM TO GET REPEAT PORTS FROM OUR FACILITY. IF YOU HAD ANY BALDOMERO WRAP/SPLINTS THAT WERE APPLIED HERE, PLEASE DO NOT REMOVE THEM UNTIL YOU SEE YOUR PRIMARY CARE OR SPECIALTY. REFERRALS: Referrals: STACEY FIELDS MD (PCP) Time of Disposition: 18:27 BRIAN SCOTT MD December 09, 2024 18:28
[2024-12-09] MEDS: PoTASSium chloRIDE 10MEQ/100ML 100 ML IV ONE (18:50)
[2024-12-09] MEDS: PoTASSium BIcarbonate/CIT AC 25 MEQ TABLET.EFF PO ONE (18:50)
--- NOTE | 2024-12-09 21:10 | NUR ---
REPORT GIVEN TO NEREYDA ORTA FROM [facility] [phone]
--- NOTE | 2024-12-09 21:17 | NUR ---
[facility] CALLED AT THIS TIME
[2024-12-09 21:40] VITALS: TEMP 98.3
[2024-12-09] MEDS: miDODRine HCL 5 MG TABLET PO ONE (21:56)
[2024-12-09 23:30] VITALS: BP 105/53; PULSE 80; RESP 18; O2SAT 96
== END 2024-12-10 01:39 | disposition home or self-care (01) ==
LOC: EDH 16:13
DX: I12.0 Hypertensive chronic kidney disease with stage 5 chronic kidney disease or end stage renal disease (principal); E11.22 Type 2 diabetes mellitus with diabetic chronic kidney disease; N18.6 End stage renal disease; E11.649 Type 2 diabetes mellitus with hypoglycemia without coma; E78.00 Pure hypercholesterolemia, unspecified; J44.9 Chronic obstructive pulmonary disease, unspecified; Z79.4 Long term (current) use of insulin; Z99.2 Dependence on renal dialysis; Z86.16 Personal history of COVID-19; Z90.49 Acquired absence of other specified parts of digestive tract
CPT/HCPCS: 99284; 96360; 96361; 83735; 80048; 85025; 82948 ×5; 36415; J3480